=== PATIENT | female | born 1985 | race Caucasian/White ===

== ENCOUNTER 2020-02-03 13:39 | Emergency (ER) | payer BC, SELFPAY ==
--- NOTE | ~2020-02-03 | US_ITS ---
EXAMINATION: US pelvic complete w TV DATE: 02/03/2020 14:57 INDICATION: Abnormal uterine bleeding. TECHNIQUE: Multiple transabdominal and transvaginal sonographic images of the pelvis were obtained. COMPARISON: None. FINDINGS: TRANSABDOMINAL ULTRASOUND: The uterus measures 11.6 x 5.7 x 9.0 cm. There is a 14.5 x 11.9 x 16.9 cm cystic mass with thick sept ation superior to the uterus. There is no free fluid in the pelvis. TRANSVAGINAL ULTRASOUND: The endometrial complex measures 3.3 cm in thickness. The ovaries are not visualized. IMPRESSION: 1. 16.9 cm cystic mass with thick septation superior to the uterus suspicious for neoplasm. Pelvis MR I without and with contrast or CT abdomen and pelvis with contrast is recommended. 2. Thickened endometrial complex, consistent with endometrial hyperplasia versus polyp. Reviewed, dictated and finalized at location A. IMPRESSION: 1. 16.9 cm cystic mass with thick septation superior to the uterus suspicious f or neoplasm. Pelvis MRI without and with contrast or CT abdomen and pelvis with contrast is recommended. 2. Thickened endometrial complex, consistent with endometrial hyperplasia versu s polyp.
--- NOTE | ~2020-02-03 | CT_ITS ---
EXAMINATION: CT abdomen pelvis w con DATE: 02/03/2020 15:54 INDICATION: Pelvic mass TECHNIQUE: Computed tomography (CT) of the abdomen and pelvis was performed with 100 mL Omnipaque-350 intravenous contrast. Automated exposure control and iterative reconstruction technique were employe d. The dose-length product was 1411.12 mGy-cm. COMPARISON: None FINDINGS: Lung bases are clear. Heart size is normal. No pericardial or pleural effusion. Diffuse hepatic steat osis with peripheral geographic regions of focal fatty sparing. Gallbladder, spleen, pancreas, bilate ral adrenal glands and kidneys are normal. 15.5 x 11.2 x 15.3 cm cystic left ovarian mass with multip le thin internal septations consistent with neoplasm. No discrete nodular soft tissue component ident ified. Anteverted uterus with thickened endometrial complex with irregular margins. Bladder is normal . Bowels including the appendix are normal. No free intraperitoneal gas or fluid. No pathologically e nlarged abdominal or pelvic lymphadenopathy. Bones are unremarkable. IMPRESSION: 1. 15.5 cm complex cystic left ovarian mass with multiple thin interval stations but no discrete nodu lar soft tissue components consistent with ovarian neoplasm which could be either benign or less like ly malignant. Recommend gynecologic consultation. 2. Thickened endometrial complex with irregular margins. Consider hysteroscopy for further evaluation . 3. Diffuse hepatic steatosis. Reviewed, dictated and finalized at location A. IMPRESSION: 1. 15.5 cm complex cystic left ovarian mass with multiple thin interval station s but no discrete nodular soft tissue components consistent with ovarian neopla sm which could be either benign or less likely malignant. Recommend gynecologic consultation. 2. Thickened endometrial complex with irregular margins. Consider hysteroscopy for further evaluation. 3. Diffuse hepatic steatosis.
[2020-02-03 13:47] VITALS: BP 164/98; PULSE 79; RESP 14; TEMP 36.6; O2SAT 98
--- NOTE | 2020-02-03 14:09 | ED.GENADULT ---
HPI - General Adult General Chief complaint: Vaginal Bleeding Stated complaint: vaginal bleeding Time Seen by Provider: 02/03/20 13:43 Source: RN notes reviewed History of Present Illness HPI narrative: Patient presents emergency department from Dr. Baptiste's office for vaginal bleeding. Patient states that she is had a history of heavy vaginal bleeding for the past 1 year that is worse in the past 4 days. States that she has her past numerous large clots. Patient states she went to OB office today as recommended come to the ER for further evaluation. She does note lower abdominal cramping. Denies any chance of . Denies any fevers or chills chest pain shortness of breath or any other symptoms Related Data Allergies Allergy/AdvReac Type Severity Reaction Status Date / Time No Known Allergies Allergy Unverified 01/01/19 20:01 Review of Systems Review of Systems: Narrative: Gen.: Denies fevers or chills ENT: Denies congestion Respiratory: Denies shortness of breath or cough CV: Denies chest pain or palpitations GI: Denies abdominal pain nausea, emesis or diarrhea see HPI Musculoskeletal: Denies back pain or muscle pain Neuro: Denies numbness, tingling, weakness or focal weakness Skin: Denies rash Except as documented, all other systems reviewed and negative PMFSH Past Medical History Medical History (Updated 02/03/20 @ 17:15 by Minh Craft DO) Patient denies significant medical history Social History Social History (Updated 02/03/20 @ 14:11 by Minh Craft DO) Smoking status: Never smoker Gender identity (if verbalized by the patient): Female Exam Narrative: Exam Narrative: APPEARANCE: No acute distress, nontoxic, resting in bed EYES: EOMI HEENT: Normocephalic, atraumatic, OMM RESPIRATORY: No respiratory distress Clear to auscultation bilaterally with no rhonchi wheezing or rales. CARDIOVASCULAR: Regular rate and rhythm without murmurs rubs or gallops. ABDOMINAL: Soft, nondistended, mild tenderness left lower quadrant and right lower quadrant, no tenderness right upper quadrant left upper quadrant, no rebound or guard MUSCULOSKELETAl: Moves all extremities. No clubbing, cyanosis or edema. NEURO: Awake and alert. Following commands, speech normal, no focal deficits SKIN:: Warm, dry. No rashes lesions or abrasions PSYCHIATRIC: Normal affect/mood, Course Course Emergency Course: Called and discussed with Dr. Baptiste presentation work-up. Discussed CT and ultrasound results. At this time he recommends discharge the patient but request the patient have a Ellis ovarian risk assessment blood test as well as a CEA and Ca1 25 test follow-up as an outpatient Discussed with patient results of workup and diagnosis. Discussed need for follow-up with primary care, proper use of medication, and reasons to return to the emergency department. Patient understands and agrees to current treatment plan. I discussed with the patient the results of the ultrasound and CT discussed concern of ovarian mass with possible malignancy and my conversation with Dr. Baptiste with blood test ordered need to follow-up as outpatient Vital Signs Vital signs: Vital Signs Temperature 97.8 F 02/03/20 13:47 Pulse Rate 79 02/03/20 13:47 Respiratory Rate 14 02/03/20 13:47 Blood Pressure 164/98 H 02/03/20 13:47 Pulse Oximetry 98 02/03/20 13:47 Temperature 97.8 F 02/03/20 13:47 Pulse Rate 83 02/03/20 17:11 Respiratory Rate 16 02/03/20 15:49 Blood Pressure 137/98 H 02/03/20 17:11 Pulse Oximetry 98 02/03/20 15:49 Medical Decision Making Vital Signs Vital Signs: Vital Signs Temperature 97.8 F 02/03/20 13:47 Pulse Rate 79 02/03/20 13:47 Respiratory Rate 14 02/03/20 13:47 Blood Pressure 164/98 H 02/03/20 13:47 Pulse Oximetry 98 02/03/20 13:47 Temperature 97.8 F 02/03/20 13:47 Pulse Rate 83 02/03/20 17:11 Respiratory Rate 16 02/03/20 15:49 Blood Press
[2020-02-03] MEDS: SODIUM CHLORIDE 0.9% IV 1,000 ML 999 ML IV CONT (14:14)
[2020-02-03 14:18] LABS: Basophils Absolute Auto 0.1 K/mm3 (0.0-0.1); Basophils Percent Auto 0.5 % (0.2-1.2); Eosinophils Absolute Auto 0.3 K/mm3 (0-0.3); Eosinophils Percent Auto 2.3 % (0-4.4); Hematocrit 37.2 % (37.0-47.0); Hemoglobin 12.8 g/dL (12.0-15.0); Immature Granulocyte Absolute 0.05 K/mm3 (0.00-0.031); Immature Granulocyte Percent A 0.5 % (0-0.5); Lymphocytes Absolute Auto 2.83 K/mm3 (0.9-3.2); Lymphocytes Percent Auto 26.2 % (18.3-44.2); Mean Corpuscular HGB Conc 34.4 g/dl (32-36); Mean Corpuscular Hemoglobin 31.2 pg (26-34); Mean Corpuscular Volume 90.7 fl (80-100); Mean Platelet Volume 10.7 fl (7.4-10.4); Monocytes Absolute Auto 0.7 K/mm3 (0.1-0.6); Monocytes Percent Auto 6.4 % (2.6-8.5); Neutrophils Absolute Auto 6.9 K/mm3 (1.3-6.7); Neutrophils Percent Auto 64.1 % (45.5-73.1); Platelet Count Result 263 k/mm3 (150-375); Red Cell Distribution Width 13.2 % (11.5-14.5); White Blood Count 10.8 K/mm3 (4.5-10.0)
[2020-02-03 14:30] LABS: Alanine Aminotransferase 41 U/L (4-35); Albumin Level 4.3 g/dL (3.5-5.1); Alkaline Phosphatase 72 U/L (38-126); Aspartate Amino Transferase 27 U/L (14-36); Bilirubin,Total 0.2 mg/dL (0.2-1.3); Blood Urea Nitrogen 9 mg/dL (7-17); Calcium 8.8 mg/dL (8.4-10.2); Carbon Dioxide 23 mmol/L (22-30); Chloride 105 mmol/L (98-107); Estimated CRCL calculation 127 ml/min; Estimated Glomerular Filt Rate > 60; Glucose 151 mg/dL (65-105); Potassium 3.7 mmol/L (3.4-5.0); Prothrombin Time 12.9 Seconds (11.1-14.7); Sodium 139 mmol/L (137-145)
[2020-02-03 15:49] VITALS: BP 142/76; PULSE 82; RESP 16; O2SAT 98
[2020-02-03 17:10] VITALS: BP 121/74; PULSE 67
[2020-02-03 17:11] VITALS: BP 131/83; BP 137/98; PULSE 75; PULSE 83
[2020-02-03 17:14] VITALS: BP 137/94; PULSE 94; RESP 18; O2SAT 98
[2020-02-03 17:43] LABS: Carcinoembryonic Antigen 2.1 ng/mL (0.0-3.0)
[2020-02-06 05:01] LABS: CA-125 148 U/mL (<35)
== END 2020-02-03 17:15 | disposition home or self-care (01) ==
PROVIDERS: Emergency Provider Emergency Medicine; PCP Internal Medicine Infectious Disease
DX: N93.8 Other specified abnormal uterine and vaginal bleeding (principal); N83.202 Unspecified ovarian cyst, left side; K76.0 Fatty (change of) liver, not elsewhere classified; R93.89 Abnormal findings on diagnostic imaging of other specified body structures
CPT/HCPCS: 36415; 74177; 76830; 76856; 80053; 81025; 81500; 82378; 85025; 85610; 85730; 86304; 86850; 86900; 86901; 99284; J7030; Q9967

== ENCOUNTER 2024-09-14 19:46 | Emergency (ER) | payer BC, SELFPAY ==
--- NOTE | ~2024-09-14 | XR_ITS ---
EXAMINATION: XR chest 1V portable DATE: 09/14/2024 23:25 INDICATION: Influenza. TECHNIQUE: A single frontal view of the chest was obtained. COMPARISON: CT abdomen and pelvis 02/03/2020 FINDINGS: There is no pneumonia, pleural effusion, or pneumothorax. The heart size is normal. IMPRESSION: 1. No acute cardiopulmonary disease. Reviewed, dictated and finalized at location A. RENTAL DELIVERER
--- NOTE | 2024-09-14 19:47 | ECG_ITS ---
Test Date: 2024-09-14 20:02:14 Measurements Intervals Marlin Rate: 88 P: 48 PA: 187 QRS: 53 QRSD: 87 T: 9 QT: 321 QTc: 390 Interpretive Statements SINUS RHYTHM NONSPECIFIC T-WAVE ABNORMALITY No previous ECG available for comparison Electronically Signed On 09-15-2024 15:53:37 GANG PUSHER by Donald Valverde M.D.
--- OUTSIDE RECORDS SUMMARY | 2024-09-14 19:49 | XMS_ITS | Clinical Summary ---
Author Organization [facility] Address [address] [place] [address] Care Team Providers Care Clerk Of Scales Name Role Phone No, Physician Primary Care Provider [phone] Wyatt Baptiste MD Unavailable [phone] Allergies Active Allergy Reactions Criticality Noted Date Comments Adhesive Rash Medium 03/07/2020 Medications polyethylene glycol (MIRALAX) 17 gram packetIndicatio ns:constipation Take 1 packet (17 g total) by mouth daily as needed for constipation 30 packet 1 0 Active ondansetron (ZOFRAN) 4 mg tablet Take 1 tablet (4 mg total) by mouth every 8 (eight) hours as needed for nausea or vomiting 15 tablet 0 Active acetaminophen 500 mg capsuleIndicati ons:Pain Take 2 capsules (1,000 mg total) by mouth every 6 (six) hours as needed for pain 30 tablet 0 Active gabapentin (NEURONTIN) 300 mg capsuleIndicati ons:Pain Take 1 capsule (300 mg total) by mouth 2 (two) times a day 60 capsule 11 0 Active glyBURIDE (DIABETA) 1.25 mg tablet Take 1 tablet (1.25 mg total) by mouth daily with breakfast 30 tablet 11 0 Active apixaban (ELIQUIS) 2.5 mg tabletIndicatio ns:VTE Prophylaxis Take 1 tablet (2.5 mg total) by mouth 2 (two) times a day for 55 doses 55 tablet 0 Active Active Problems Problem Noted Date Diagnosed Date Anemia 03/24/2020 Migraines 03/24/2020 Recurrent urinary tract infection 03/24/2020 Secondary female infertility 03/24/2020 Steatosis of liver 03/24/2020 Tobacco user 03/24/2020 Vitamin D deficiency 03/24/2020 History of total hysterectom y with bilateral salpingo-oophorectomy (BSO) 03/09/2020 Adnexal mass 03/06/2020 Pelvic mass in female 02/16/2020 Overview (02/16/2020): Added automatically from request for surgery [id number] Delivery by section 03/18/2019 Ovarian cyst affecting pregn lukas in third trimester, antepartum 03/10/2019 Overview (03/24/2020): Last Assessment & Plan: Plan: If left ovarian cyst removed at the time of delivery, would recommend exercising caution to avoid adnexal bleeding and sending specimen to pathology for evaluation. Pelvic pain precautions again instructed on. Nausea and vomiting of , antepartum 05/2019 Overview (03/24/2020): Last Assessment & Plan: Fairly controlled with Zofran twice daily. New complaints of Reflux that Tums is not controlling, Zantac 150mg BID sent to pharmacy for relief. Elevated LFTs 02/10/2019 Overview (03/24/2020): Per record, sent with orders for repeat CMP 02/10 Laboratory summary 02/16/2019) ALT 36 ( 6-29) /AST 25/ T bili 0.4 Last Assessment & Plan: mildly elevated ALT levels Hyperlipidemia 02/10/2019 Overview (03/24/2020): Chart review shows history of; patient uncertain regarding diagnosis. 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 Mild to moderate hyperhomocystinemia has been identified as a risk factor for coronary artery disease and venous thromboembolism. Recent studies do not support the previously described association of increased risk of coronary artery disease and venous thromboembolism with mild hyperhomocystinemia caused by reduced MTHFR activity. The utility of MTHFR variant testing is not certain it is not recommended by either the [employer] ([employer]) or the [employer] ([employer]) in the evaluation of venous thromboembolism or adverse outcomes. Modest positive association has been found between the thermal labile variant (C677T) of the MTHFR gene and many other medical complications such as recurrent loss, risk of offspring with neural tube defects, neuropsychiatric disease and chemotherapy toxicity. If there is a personal family history of thromboembolism, consider testing plasma homocysteine, Factor 5 Leiden and prothrombin gene mutation. PCOS (polycystic ovarian syndrome) 02/09/2019 Overview (03/24/2020): Does not tolerate metformin Last Assessment & Plan: Reports history of menorrhagia and hyperplasia in the past requiring hysteroscopy, dilation and curettage, she states she did NOT get a uterine ablation. Reports taking statin in the past for her menorrhagia, and trial of Metformin but did not tolerate GI side effects. Uncertain if hemoglobin A1C has been assessed previously; not in records. States she saw SHAVONNE for ; then could not continue to afford to see, and was spontaneous. Gestational diabetes mellitus (GDM) 02/09/2019 Overview (03/24/2020): GCT not available GTT results from 01/29/2019: 116,246,205,211 hemoglobin A1c 6.1 (02/16/2019) Last Assessment & Plan: Non-compliant with eating regularly, including snacks; ketonuria present today along with 3lb weight loss Denies hypoglycemia Fasting hyperglycemia continues LGA growth pattern noted on last ultrasound Plan: Maternal- Medicine comanage gestational diabetes Reviewed at length with Dmitri that she needs to eat regularly, including snacks, and starvation is not our recommendation Reviewed that the fetus needs glucose for ongoing brain growth/development Goals given for Dmitri to find a meal replacement shake with at least 30 grams of carb, when she does not feel like eating Must eat at least 30 grams of carb with a meal in order to give meal time insulin Goal given for her to start eating snacks, ideas reviewed Increase bedtime Levemir to 34 units, continue 22 units in the morning Change meal time insulin to 12 units with breakfast, 12 units with lunch, 12 units with dinner Do not give meal time insulin if you do no plan to eat Perform blood glucose measurements 7??times daily, and send blood glucose logs and food diary weekly for review to diabetic team Twice daily kick counts Continue aspirin for preeclampsia risk reduction Twice weekly nonstress tests starting at 34 weeks, scheduling today for next week Serial growth every 4 weeks with last assessment at 38 weeks for mode of delivery, scheduled again 04/06 Delivery initiation between 39-40 weeks , recommended Diabetes testing 4-5 weeks after delivery with review at 6 week visit ?? Late care affecting 9 Supervision of high-risk of sis calvillo igravida 02/09/2019 Overview (03/24/2020): Approximate LMP 06/06/2018--ALEJA 03/13/2019; not consistent with 21w5d U/S giving ALEJA of 05/10/19 O+/NI/-/-/HIV neg / GC/CT neg/neg UDS neg 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 Candidiasis of vagina 10/08/2018 Tobacco dependence syndrome 09/18/2017 Obesity 08/28/2017 Overview (03/24/2020): TSH 1.55 /free T4 1.1 (02/16/19) Last Assessment & Plan: Would benefit from and weight reduction Immunizations Name Administration Dates Next Due Influenza, Quadrivalent, Spl it, Preservative Free, Intramuscular 07/01/2014 MMR 05/01/2019 Pneumococcal Polysaccharide PPV23 07/01/2014 Tdap 03/04/2019,07/17/2015 Surgical History Surgery Date Site/Laterality Comments SECTION PYLOROPLASTY Medical History Medical History Date Comments PCOS (polycystic ovarian syndrome) Pyloric stenosis Social History Tobacco Use Types Packs/Day Years Used Date Smoking Tobacco: Every Day Cigarettes Smokeless Tobacco: Never Alcohol Use Standard Drinks/Week Comments Not Currently 0 (1 standard drink = 0.6 oz pur e alcohol) Comments No Sex and Gender Information Value Date Recorded Sex Assigned at Not on file Legal Sex Female 2:36 AM CDT Gender Identity Not on file Sexual Orientation Not on file Obstetrics History Para Term AB IAB SAB Ectopic Multiple Livin g Live Births 3 3 3 2 3 Date Outcome GA Total Labor Labor/2nd/3rd Weight Sex Type Anes PTL Rehana A1 A5 Name Clin Term Term Term Last Filed Vital Signs Vital Sign Reading Time Taken Comments Blood Pressure 108/72 03/24/2020 9:37 AM CDT Pulse 90 03/24/2020 9:37 AM CDT Temperature 36.2 ??C (97.2 ??F) 03/24/2020 9:37 AM CD T Respiratory Rate 14 03/24/2020 9:37 AM CDT Oxygen Saturation 97% 03/24/2020 9:37 AM CDT Inhaled Oxygen Concentration - - Weight 115 kg (253 lb 8 oz) 03/24/2020 9:37 AM C DT Height 152.4 cm (5') 03/24/2020 9:37 AM CDT Body Mass Index 49.51 03/24/2020 9:37 AM CDT Plan of Treatment Not on file Insurance [employer] [place] Member Subscriber Plan / Payer (Ef fective 2020-Present) Name:Dmitri Fox Relation to Subscriber:Not on file Subscriber ID:Not on file Payer ID:[id number] (NAIC) Group ID:[id number] Type: OTHER Address: [facility] [id number] [place] [address] [employer] Advance Directives For more information, please contact: [phone] * Full Code (Latest Code Status on File) Date Activated Date Inactivated Comments 03/06/2020 8:54 PM 03/08/2020 8:54 PM * Full Code Date Activated Date Inactivated Comments 02/20/2020 4:12 PM 02/21/2020 5:41 PM * Full Code Date Activated Date Inactivated Comments 02/07/2020 11:02 AM 02/08/2020 10:44 PM * Full Code Date Activated Date Inactivated Comments 02/06/2020 6:12 AM 02/06/2020 8:03 PM Care Teams Clerk Of Scales Relationship Specialty Start Date End Date No, Physician PCP - General 02/05/20 Wyatt Baptiste MD Referring Physician Obstetrics and Gynecology 02/07/20
--- OUTSIDE RECORDS SUMMARY | 2024-09-14 19:49 | XMS_ITS | Clinical Summary ---
Author Organization [facility] [employer] Address [address] [place] [address] Care Team Providers Care Combustion Analyst Name Role Phone Wyatt Baptiste MD Primary Care Provider [phone] Source Comments [facility] [employer],non-owned Affiliates and Associated Physician Practices is amultiple site organization consisting of ambulatory clinics and hospital sitesin [place], [place], [place] and [place]. This disclosure is being madepursuant to the Care Everywhere program and may not contain all information available regarding this patient. Last updated 18.[facility] [employer] Allergies No known active allergies Medications * Be aware that medications may not be up to date on this document. Alwaysverify current medications with the patient. Medication Sig Dispensed Refills Start Date End Date Status Vit-Fe Fumarate-FA ( PO) Active raNITIdine (ZANTAC) 150 MG tablet Take 150 mg by mouth 2 times daily Active iron polysaccharides (NIFEREX 150) 150 MG capsule Take 1 capsule by mouth 2 times daily 60 capsule 3 04/30/2019 Active oxyCODONE-acetaminophen (PERCOCET) 5-325 MG tablet Take 1 tablet by mouth every 6 hours as needed for Pain 20 tablet 04/30/2019 Active ibuprofen (MOTRIN) 600 MG tablet Take 1 tablet by mouth every 6 hours as needed for Pain 40 tablet 1 04/30/2019 Active docusate sodium (COLACE) 100 MG capsule Take 1 capsule by mouth 2 times daily 60 capsule 1 04/30/2019 Active Active Problems Problem Noted Date Diagnosed Date Ovarian cyst affecting pregn lukas in third trimester, antepartum 03/10/2019 Assessment & Plan (03/24/2019 11:58 AM CDT): Plan: If left ovarian cyst removed at the time of delivery, would recommend exercising caution to avoid adnexal bleeding and sending specimen to pathology for evaluation. Pelvic pain precautions again instructed on. Assessment & Plan (03/10/2019 5:04 PM CDT): Please see formal ultrasound report for description of ovarian cyst. Pelvic pain precautions instructed on today and to present to hospital with any concerns. PTL warnings reviewed. Consider removal during section. Nausea and vomiting of , antepartum 05/2019 Assessment & Plan (03/03/2019 2:52 PM CDT): Fairly controlled with Zofran twice daily. New complaints of Reflux that Tums is not controlling, Zantac 150mg BID sent to pharmacy for relief. Assessment & Plan (02/24/2019 10:54 AM CDT): Encouraged to take Zofran twice daily (a.m. and p.m. dosing) for decreased nausea and improvement with meal choices and regular eating Hyperlipidemia 02/10/2019 Overview (02/24/2019): Chart review shows history of; patient uncertain regarding diagnosis. Laboratory summary: 02/16/2019 (3rd trimester) HDL 36 mg/dL( 48-87) total cholesterol 229 mg/dL ( 219-349) triglycerides 166 mg/dL ( 131-453) LDL 162 mg/dL ( 101-224) Assessment & Plan (02/24/2019 10:51 AM CDT): Mildly reduced HDL levels for the 3rd trimester Assessment & Plan (02/17/2019 9:17 AM CDT): Lipid panel is still pending Assessment & Plan (02/10/2019 4:54 PM CDT): Chart review shows history of; patient uncertain regarding diagnosis. 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 History of Elevated LFTs 02/10/2019 Overview (02/24/2019): Per record, sent with orders for repeat [facility] 02/10 Laboratory summary 02/16/2019) ALT 36 ( 6-29) /AST 25/ T bili 0.4 Assessment & Plan (02/24/2019 10:52 AM CDT): mildly elevated ALT levels Assessment & Plan (02/17/2019 9:17 AM CDT): CMP is currently pending Gestational diabetes mellitus (GDM) 02/09/2019 Overview (02/24/2019): GCT not available GTT results from 01/29/2019: 116,246,205,211 hemoglobin A1c 6.1 (02/16/2019) Assessment & Plan (03/24/2019 12:07 PM CDT): Non-compliant with eating regularly, including snacks; ketonuria present today along with 3lb weight loss Denies hypoglycemia Fasting hyperglycemia continues LGA growth pattern noted on last ultrasound Plan: Maternal- Medicine comanage gestational diabetes Reviewed at length with Radha that she needs to eat regularly, including snacks, and starvation is not our recommendation Reviewed that the fetus needs glucose for ongoing brain growth/development Goals given for Radha to find a meal replacement shake with [...] with review at 6 week visit ?? Assessment & Plan (03/10/2019 5:33 PM CDT): Maternal- Medicine comanage in gestational diabetes Hyperglycemia noted today, diabetes not in adequate control, evidenced by accelerated growth also Reviewed at length with Radha and significant other at bedside risks for ongoing hyperglycemia, as well as /childhood risks Increase bedtime Levemir to 26 units, continue 22 units in the morning Increase meal time insulin by 12 units with breakfast, 10 units with lunch, 12 units with dinner Do not give meal time insulin if you do no plan to eat Encouraged to add physical activity Perform blood glucose measurements 7??times daily -that send blood glucose logs and food diary weekly for review to diabetic team Twice daily kick counts Continue aspirin for preeclampsia risk reduction Twice weekly nonstress tests starting at 34 weeks Serial growth every 4 weeks with last assessment at 38 weeks for mode of delivery Delivery initiation between 39-40 weeks , recommended Diabetes testing 4-5 weeks after delivery with review at 6 week visit Assessment & Plan (03/03/2019 2:49 PM CDT): Adequate logs today, with some missed checks. Suboptimal glucose control. Last estimated weight overall appropriate. ?? Plan: Maternal- Medicine comanage in gestational diabetes Increase Levemir to Add meal time insulin of 8 units of Humalog with breakfast, lunch, dinner Do not give meal time insulin if you do no plan to administer Perform blood glucose measurements 7 times daily -that send blood glucose logs and food diary weekly for review to diabetic team Twice daily kick counts Continue aspirin for preeclampsia risk reduction Twice weekly nonstress tests starting at 34 weeks Serial growth every 4 weeks with last assessment at 38 weeks for mode of delivery--reassess growth in 1 week Delivery initiation between 39-40 weeks Diabetes testing 4-5 weeks after delivery with review at 6 week visit Assessment & Plan (02/24/2019 10:57 AM CDT): Insufficient information brought today. Suboptimal glucose control. Last estimated weight overall appropriate. Maternal- Medicine recommendations: Maternal- Medicine comanage in gestational diabetes Increase Levemir to /16 Perform blood glucose measurements 7 times daily -that send blood glucose logs and food diary weekly for review to diabetic team Daily kick counts Continue aspirin for preeclampsia risk reduction Twice weekly nonstress tests starting at 34 weeks Serial growth every 4 weeks with last assessment at 38 weeks for mode of delivery--reassess growth in 1-2 weeks Delivery initiation between 39-40 weeks Diabetes testing 4-5 weeks after delivery with review at 6 week visit Assessment & Plan (02/17/2019 8:38 PM CDT): Perform 4 times daily blood glucose measurements; goal of fasting <90, 1 hour post prandial <130 Start insulin Levemir 10 units in the morning and at bedtime; Increase bedtime Levemir dose by 2 units every 2 days for consistent fasting glucoses>90 Refuses Metformin d/t GI side effects experienced previously Close contact with our special educator to optimize glycemic control on at least once weekly basis Again, reviewed that total carbohydrate elimination is NOT recommended Report promptly any hypoglycemic episodes Keep snack and quick carb with you at all times Dilated retinal exam: indicated if Hemoglobin A1C shows elevation Labs: CMP, TSH, Hemoglobin A1C: results pending; collected yesterday 24 hour urine supplies given, do not collect until urine culture results from yesterday Comprehensive anatomy incomplete and AGA 02/10 , follow up anatomy and growth evaluation in 1-3 weeks Twice weekly NST beginning at 34 weeks until delivery Close surveillance for gestational hypertension and preeclampsia Typical delivery recommended at 39 weeks in uncomplicated diabetic ; further recommendations on timing of delivery will depend on glycemic control and surveillance. Continue Asprin 162 mg daily for preeclampsia risk reduction 2 hour GTT at 4 weeks PP to be discussed at 6 week PP visit Post weight reduction recommended Assessment & Plan (02/10/2019 6:36 PM CDT): GCT not available GTT results from 01/29/2019: 116, 246, 205, 211 Gestational Diabetes I counseled Radha Jacinto regarding the adverse outcomes associated with inadequately controlled diabetes in . These complications include overgrowth with the associated risk of labor and shoulder dystocia, delivery, preeclampsia, hypoglycemia, stillbirth, and her child's risk of metabolic disease in later life secondary to programming of adult disease. Adequate treatment of the disease will minimize these risks. We discussed the dramatic increase in insulin resistance that occurs in the second half of and I outlined a plan for ongoing management. We reviewed the target glucose ranges to minimize excessive growth and optimize outcomes. These are: Fasting 60-90 mg/dl; preprandial 60-105 mg/dl; and 1-hour postprandial < 130 mg/dl. A) Antepartum testing. Recommend daily kick counts Twice weekly NST beginning between 32-36 weeks until delivery; initiation will be based on if medication is required for treatment Serial Ultrasound assessment of growth every 3-4 weeks is recommended, with a reassessment between 37-38 weeks for mode of delivery planning. B.) Timing of Delivery. If spontaneous delivery has not occurred by 39 weeks gestation, delivery may be planned between 39-40 weeks. If complications, such as preeclampsia, macrosomia or poor glucose control develop, then delivery plans may need to be revised. C) Route of delivery. Vaginal delivery may be anticipated unless the fetus is excessively large or there is an abnormal presentation. Diabetes is associated with about a six-fold risk for shoulder dystocia. Operative vaginal deliveries should be approached with caution. We also discussed the limitations of ultrasound for estimating weight at term, with estimated weights deviating by up to 1 lb in either direction from birthweights. I advised Radha that the [employer] recommends delivery for fetuses with estimated weight of 4500 grams or greater in diabetic mothers. D) Glucose control in labor. During labor, capillary glucose values should be checked every 1-2 hours (depending on their stability). Maintenance fluids with 5% dextrose are infused to prevent starvation ketosis. If the glucose values exceed 110 mg/dl, an insulin infusion is recommended. E) Long-term diabetes surveillance. The risk of Radha Jacinto developing diabetes outside of over the next five years may be as high as 50%. I recommend that she have a fasting plasma glucose or 2hr GTT at 4 weeks and discussion of the results at her 6 week visit. If her testing is normal, annual glucose screening by her primary care physician is advised. Plan: Perform 4 times daily blood glucose measurements; goal of fasting <90, 1 hour post prandial <130 Close contact with our special educator to optimize glycemic control on at least once weekly basis Reviewed that total carbohydrate elimination is NOT recommended; reviewed carb counting with meals No medications given today; educated per DM nurse on assessment of glucoses Dilated retinal exam: indicated if Hemoglobin A1C shows elevation Labs: CMP, TSH, Hemoglobin A1C; 24 hour urine not given due to urine suspicious for UTI currently Comprehensive scan completed today, anatomy incomplete, followed by serial ultrasounds for growth every 4 weeks. Twice weekly NST beginning between 32-36 weeks until delivery, initiation of testing will depend on if insulin is required Close surveillance for gestational hypertension and preeclampsia Typical delivery recommended at 39 weeks in uncomplicated diabetic ; further recommendations on timing of delivery will depend on glycemic control and surveillance. Continue Asprin 162 mg daily for preeclampsia risk reduction 2 hour GTT at 4 weeks PP to be discussed at 6 week PP visit Post weight reduction recommended Supervision of high-risk of sis calvillo igravida 02/09/2019 Overview (02/10/2019): Approximate LMP 06/06/2018--ALEJA 03/13/2019; not consistent with 21w5d U/S giving ALEJA of 05/10/19 O+/NI/-/-/HIV neg /328 GC/CT neg/neg UDS neg PCOS (polycystic ovarian syndrome) 02/09/2019 Overview (02/24/2019): Does not tolerate metformin Assessment & Plan (02/10/2019 5:26 PM CDT): Reports history of menorrhagia and hyperplasia in [...] to afford to see, and was spontaneous. Maternal morbid obesity, antepartum 02/09/2019 Overview (02/24/2019): TSH 1.55 /free T4 1.1 (02/16/19) Assessment & Plan (02/24/2019 10:52 AM CDT): Would benefit from and weight reduction Assessment & Plan (02/10/2019 5:06 PM CDT): Obese women have higher rates of spontaneous miscarriage. Morbid obesity is associated with a host of complications. She is at increased risk for preeclampsia and gestational hypertension, delivery, macrosomia, gestational diabetes, deep venous thrombosis, delivery, stillbirth and certain defects, such as open neural tube defects. deliveries for women of her size are associated with an increased risk of complications, such as anesthetic complications, wound complications, and infections, which were discussed. During , limited weight gain is recommended. I indicated Weight maintenance (a loss or gain of 10 pounds) is the current recommendation, and that active weight loss is discouraged. ?? We discussed the metabolic syndrome, in particular the common comorbidity of obesity, diabetes and hypertension. I emphasized the importance and benefits of good nutrition in managing as well as avoiding these disorders. I encouraged in particular a goal of 3 daily servings of green vegetables to help with proper glucose metabolism, blood pressure regulation, water weight management, weight gain, regular bowel movements among other benefits. Late care affecting 9 Migraines Resolved Problems Problem Noted Date Diagnosed Date Resolved Date Abdominal pain 04/27/2019 05/01/2019 PCO (polycystic ovaries) 10/2018 Gestational diabetes 019 Urinary tract infection 02/15 Assessment & Plan (02/17/2019 10:33 AM CDT): Patient went to lab yesterday, UA pending, urine negative for blood today, patient asymptomatic, aware of pyelo precautions. Assessment & Plan (02/10/2019 5:07 PM CDT): Reports treatment of UTI once this Reports some mild flank discomfort today and blood present in urine without vaginal bleeding UA and urine culture order given to patient Encouraged patient to follow up with results with our office on Friday Pyelo and renal stone precautions given Immunizations Name Administration Dates Next Due MMR 05/01/2019,05/01/2019(Deferred: - duplicate order) Family History * Patient is adopted Medical History Relation Name Comments Diabetes - Type 2 Maternal Grandfather Diabetes - Type 2 Maternal Grandmother Hyperlipidemia Mother Hypertension Mother Osteoporosis Mother CAD (Coronary Artery Disease) Paternal Grandfather Hypertension Paternal Grandmother Cancer - Colon Paternal Uncle Relation Name Status Comments Father adopted with no history Maternal Grandfather Maternal Grandmother Mother Paternal Grandfather Paternal Grandmother Paternal Uncle Social History Tobacco Use Types Packs/Day Years Used Date Smoking Tobacco: Former Cigarettes Smokeless Tobacco: Never Tobacco Cessation:Counseling Given: Yes Alcohol Use Standard Drinks/Week Comments Not Currently 0 (1 standard drink = 0.6 oz pur e alcohol) Not during Sex and Gender Information Value Date Recorded Sex Assigned at Not on file Gender Identity Not on file Sexual Orientation Not on file Last Filed Vital Signs Vital Sign Reading Time Taken Comments Blood Pressure 130/82 05/01/2019 12:20 PM CDT Pulse 80 05/01/2019 12:20 PM CDT Temperature 36.6 ??C (97.8 ??F) 05/01/2019 12:20 PM C DT Respiratory Rate 18 05/01/2019 12:20 PM CDT Oxygen Saturation 98% 05/01/2019 12:20 PM CDT Inhaled Oxygen Concentration - - Weight 111.1 kg (245 lb) 04/27/2019 7:42 PM CDT Height 152.4 cm (5') 04/27/2019 7:42 PM CDT Body Mass Index 47.85 04/27/2019 7:42 PM CDT Plan of Treatment Health Maintenance Due Date Last Done Comments HIV SCREENING 2001 HEPATITIS C SCREENING 06/18/2004 DTAP/TDAP/TD VACCINES (1 - Tdap) 2005 HEPATITIS B VACCINE (1 of 3 - 19+ 3-dose series) 2005 PAP SMEAR 10/05/2021 10/05/2018 (Done Outside Per Report) COVID-19 VACCINE (1 - 2023-2 5 season) 2024 INFLUENZA VACCINE (#1) 2024 DEPRESSION SCREENING 08/18/2024 ZOSTER VACCINE (1 of 2) 2036 HIB VACCINE Aged Out No longer eligi ble based on patient's age to complete this topic HPV VACCINE Aged Out No longer eligi ble based on patient's age to complete this topic MENINGOCOCCAL (Group B) VACCINE Aged Out No longer eligible based on patient's age to complete this topic MENINGOCOCCAL VACCINE Aged Out No gisela lydia eligible based on patient's age to complete this topic PNEUMOCOCCAL VACCINE Aged Out No long er eligible based on patient's age to complete this topic Advance Directives * Full Code (Latest Code Status on File) Date Activated Date Inactivated Comments 04/28/2019 12:45 AM 05/01/2019 4:52 PM Care Teams Combustion Analyst Relationship Specialty [place] [address] [place] [id number] PCP - General 04/20/19
--- OUTSIDE RECORDS SUMMARY | 2024-09-14 19:49 | XMS_ITS | Referral Summary ---
Author Organization [facility] Address [address] [place] [address] Care Team Providers Care Plant Electrical Engineer Name Role Phone No, Physician Primary Care Provider [phone] Wyatt Baptiste MD Unavailable [phone] Allergies Active Allergy Reactions Criticality Noted Date [...] (02/16/2020): Added automatically from request for surgery [id number] Delivery by section 03/18/2019 Ovarian cyst affecting [...] it is not recommended by either the [employer] (ACMG) or the [employer]nec[employer] (ACOG) in [...] 05/01/2019 Pneumococcal Polysaccharide PPV23 07/01/2014 Tdap 03/04/2019,07/17/2015 Social History Tobacco Use Types Packs/Day Years [...] Plan of Treatment Not on file Insurance [employer] [place] Subscriber Plan / Payer (Ef fective 2020-Present) Name:Dmitri Fox Relation to Subscriber:Not on file Subscriber ID:Not on file Payer ID:[id number] (NAIC) Group ID:[id number] Type: OTHER Address: [address] [place] [address] [employer] Advance Directives For more information, please contact: [phone] * Full Code (Latest Code Status on File) Date Activated Date Inactivated Comments 03/06/2020 8:54 PM 03/08/2020 8:54 PM * Full Code Date Activated Date Inactivated Comments 02/20/2020 4:12 PM 02/21/2020 5:41 PM * Full Code Date Activated Date Inactivated Comments 02/07/2020 11:02 AM 02/08/2020 10:44 PM * Full Code Date Activated Date Inactivated Comments 02/06/2020 6:12 AM 02/06/2020 8:03 PM Care Teams Plant Electrical Engineer Relationship Specialty Start Date End Date No, Physician PCP - General 02/05/20 Wyatt Baptiste MD Referring Physician Obstetrics and Gynecology 02/07/20
--- OUTSIDE RECORDS SUMMARY | 2024-09-14 19:49 | XMS_ITS | Data Portability ---
Author Organization [facility] Address [address] [place] [address] Assessment No assessment recorded. Plan of Treatment Reminders Order Date Submit Date Provider Last Modified By Organization Details Last Modified Time Details Appointments None recorded . Lab urinalys is, dipstick 2018 019 penelope In-Office Order, Internal Use Only DO Not Attach Compendium DO Not Attach Compendium, Do Not Delete/merge, [id number] 11:37:11 urinalys is, dipstick 2018 019 penelope In-Office Order, Internal Use Only DO Not Attach Compendium DO Not Attach Compendium, Do Not Delete/merge, [id number] 15:55:[address] referral - As discusse d with Dr. Scott 2019 020 emperatriz Scott, [address], [address], 0 15:50:49 Procedures None recorded . Surgeries section (SURG) 2018 019 [email or web address] [facility], [address] [place], [address], 9 16:25:14 Imaging None recorded . Medication Orders cyanocob alamin (vit B-12) 1,000 mcg/mL injectio n solution 2018 019 Not available 10/01/201 9 16:29:09 Caltrate Gummy Bites 250 mg-10 mcg (400 unit) chewable tablet 2018 019 [email or web address] [facility] #[id number], [address], [place], [address], 0 15:59:21 multivit obrien tablet 2018 019 INTERFACE [facility] #[id number], [address], [place], [address], 9 17:41:37 glyburid e 1.25 mg tablet 2019 020 INTERFACE [facility] #[id number], [address], [place], [address], 0 16:11:00 Slynd 4 mg (28) tablet 2019 020 INTERFACE [facility] #[id number], [address], [place], [address], 0 16:18:40 Patient TargetsNo targets recorded. Patient Instructions Encounter Date Encounter Id Patient Instructions Last Modified By Organization Details Last Modified Time 03/04/2019 [id number] polycystic ovary syndrome: care instructions [email or web address] Not available 03/04/2019 12:11:14 03/18/2019 [id number] When You Want to Lose Weight: Care Instructions [email or web address] Not available 03/18/2019 13:07:56 01/11/2020 [id number] When You Want to Lose Weight: Care Instructions mwasserman Not available 01/11/2020 16:18:39 heavy menstrual periods: care instructions mwasserman Not available 01/11/2020 16:18:39 02/07/2020 [id number] When You Want to Lose Weight: Care Instructions [email or web address] Not available 02/07/2020 15:24:45 heavy menstrual periods: care instructions mwasserman Not available 02/07/2020 14:59:18 Reason for Referral Gynecologic Oncologist Refer ral for Pelvic mass 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 Scott Referring Physician: Wyatt Baptiste, FURNACE LINER, Encounter Date: 02/07/2020 Results Created Date Observation Date Name Description Value Unit Range Abnormal Flag Note LastModifiedBy Organization Detail LastModifiedTime 03/18/20 19 03/18/2019 urina lysis , dipst ick Leukocytes Negati ve Not Available In-Office Order Internal Use Only DO Not Attach Compendium DO Not Attach Compendium, Do Not Delete/merge, [id number] 03/18/2019 12:37:25 03/18/2003/18/2019 urina lysis , dipst ick Nitrite negati ve Not Available In-Office Order Internal Use Only DO Not Attach Compendium DO Not Attach Compendium, Do Not Delete/merge, 03/18/2019 12:37:25 03/18/2003/18/2019 urina lysis , dipst ick Urobilinogen .2 Not Available In-Of fice Order Internal Use Only DO Not Attach Compendium DO Not Attach Compendium, Do Not Delete/merge, 03/18/2019 12:37:25 03/18/2003/18/2019 urina lysis , dipst ick Protein Negati ve Not Available In-Office Order Internal Use Only DO Not Attach Compendium DO Not Attach Compendium, Do Not Delete/merge, 03/18/2019 12:37:25 03/18/2003/18/2019 urina lysis , dipst ick pH 6.5 Not Available In-Office Order Internal Use Only DO Not Attach Compendium DO Not Attach Compendium, Do Not Delete/merge, 03/18/2019 12:37:25 03/18/2003/18/2019 urina lysis , dipst ick Blood Negati ve Not Available In-Office Order Internal Use Only DO Not Attach Compendium DO Not Attach Compendium, Do Not Delete/merge, 03/18/2019 12:37:25 03/18/2003/18/2019 urina lysis , dipst ick Specific [place] 1.025 Not Available In-Off ice Order Internal Use Only DO Not Attach Compendium DO Not Attach Compendium, Do Not Delete/merge, 03/18/2019 12:37:25 03/18/2003/18/2019 urina lysis , dipst ick Ketone Trace Not Available In-Office Order Internal Use Only DO Not Attach Compendium DO Not Attach Compendium, Do Not Delete/merge, [id number] 03/18/2019 12:37:25 03/18/20 19 03/18/2019 urina lysis , dipst ick Bilirubin Negati ve Not Available In-Office Order Internal Use Only DO Not Attach Compendium DO Not Attach Compendium, Do Not Delete/merge, [id number] 03/18/2019 12:37:25 03/18/20 19 03/18/2019 urina lysis , dipst ick Glucose Negati ve Not Available In-Office Order Internal Use Only DO Not Attach Compendium DO Not Attach Compendium, Do Not Delete/merge, 03/18/2019 12:37:25 03/04/20 19 03/04/2019 urina lysis , dipst ick Leukocytes Negati ve Not Available In-Office Order Internal Use Only DO Not Attach Compendium DO Not Attach Compendium, Do Not Delete/merge, 03/04/2019 11:19:47 03/04/20 19 03/04/2019 urina lysis , dipst ick Nitrite negati ve Not Available In-Office Order Internal Use Only DO Not Attach Compendium DO Not Attach Compendium, Do Not Delete/merge, [id number] 03/04/2019 11:19:47 03/04/20 19 03/04/2019 urina lysis , dipst ick Urobilinogen 1 Not Available In-Of fice Order Internal Use Only DO Not Attach Compendium DO Not Attach Compendium, Do Not Delete/merge, [id number] 03/04/2019 11:19:47 03/04/20 19 03/04/2019 urina lysis , dipst ick Protein Negati ve Not Available In-Office Order Internal Use Only DO Not Attach Compendium DO Not Attach Compendium, Do Not Delete/merge, 03/04/2019 11:19:47 03/04/20 19 03/04/2019 urina lysis , dipst ick pH 6.5 Not Available In-Office Order Internal Use Only DO Not Attach Compendium DO Not Attach Compendium, Do Not Delete/merge, 03/04/2019 11:19:47 03/04/20 19 03/04/2019 urina lysis , dipst ick Blood Negati ve Not Available In-Office Order Internal Use Only DO Not Attach Compendium DO Not Attach Compendium, Do Not Delete/merge, 03/04/2019 11:19:47 03/04/20 19 03/04/2019 urina lysis , dipst ick Specific [place] 1.030 Not Available In-Off ice Order Internal Use Only DO Not Attach Compendium DO Not Attach Compendium, Do Not Delete/merge, 03/04/2019 11:19:47 03/04/20 19 03/04/2019 urina lysis , dipst ick Ketone Trace Not Available In-Office Order Internal Use Only DO Not Attach Compendium DO Not Attach Compendium, Do Not Delete/merge, 03/04/2019 11:19:47 03/04/20 19 03/04/2019 urina lysis , dipst ick Bilirubin Small Not Available In-Offic e Order Internal Use Only DO Not Attach Compendium DO Not Attach Compendium, Do Not Delete/merge, 03/04/2019 11:19:47 03/04/2003/04/2019 urina lysis , dipst ick Glucose Negati ve Not Available In-Office Order Internal Use Only DO Not Attach Compendium DO Not Attach Compendium, Do Not Delete/merge, 03/04/2019 11:19:47 02/05/20 19 02/04/2019 urina lysis , dipst ick Leukocytes Trace Not Available In-Offi ce Order Internal Use Only DO Not Attach Compendium DO Not Attach Compendium, Do Not Delete/merge, 02/04/2019 10:43:11 02/05/20 19 02/04/2019 urina lysis , dipst ick Nitrite negati ve Not Available In-Office Order Internal Use Only DO Not Attach Compendium DO Not Attach Compendium, Do Not Delete/merge, 02/04/2019 10:43:11 02/05/20 19 02/04/2019 urina lysis , dipst ick Urobilinogen .2 Not Available In-Of fice Order Internal Use Only DO Not Attach Compendium DO Not Attach Compendium, Do Not Delete/merge, 02/04/2019 10:43:11 02/05/20 19 02/04/2019 urina lysis , dipst ick Protein Negati ve Not Available In-Office Order Internal Use Only DO Not Attach Compendium DO Not Attach Compendium, Do Not Delete/merge, 02/04/2019 10:43:11 02/05/20 19 02/04/2019 urina lysis , dipst ick pH 7.0 Not Available In-Office Order Internal Use Only DO Not Attach Compendium DO Not Attach Compendium, Do Not Delete/merge, 02/04/2019 10:43:11 02/05/2002/04/2019 urina lysis , dipst ick Blood Negati ve Not Available In-Office Order Internal Use Only DO Not Attach Compendium DO Not Attach Compendium, Do Not Delete/merge, 02/04/2019 10:43:11 02/05/2002/04/2019 urina lysis , dipst ick Specific [place] 1.015 Not Available In-Off ice Order Internal Use Only DO Not Attach Compendium DO Not Attach Compendium, Do Not Delete/merge, 02/04/2019 10:43:11 02/05/2002/04/2019 urina lysis , dipst ick Ketone Trace Not Available In-Office Order Internal Use Only DO Not Attach Compendium DO Not Attach Compendium, Do Not Delete/merge, 02/04/2019 10:43:11 02/05/2002/04/2019 urina lysis , dipst ick Bilirubin Small Not Available In-Offic e Order Internal Use Only DO Not Attach Compendium DO Not Attach Compendium, Do Not Delete/merge, 02/04/2019 10:43:11 02/05/2002/04/2019 urina lysis , dipst ick Glucose Negati ve Not Available In-Office Order Internal Use Only DO Not Attach Compendium DO Not Attach Compendium, Do Not Delete/merge, 02/04/2019 10:43:11 02/11/2002/10/2019 US, obste tric, 2nd trime ster No observ ation record ed. [facility] Wyatt Baptiste MD [address] [place], [address], 03/04/2019 11:44:23 02/11/20 19 02/10/2019 US, obste tric, bioph ysica l profi le + non-s tress test No observ ation record ed. [facility] Olivia [address] [place], [address], 03/04/2019 11:44:23 02/12/20 19 02/10/2019 US, obste tric, 2nd trime ster No observ ation record ed. [facility] ([facility]) [address] [place], [address], 03/04/2019 11:44:23 03/11/20 19 03/10/2019 US, obste tric, 3rd trime ster No observ ation record ed. [facility] [place] [address] [place], [address], 03/18/2019 23:31:37 03/11/20 19 03/10/2019 US, obste tric, 3rd trime ster No observ ation record ed. [email or web address] [facility] [address], [address], 03/25/2019 11:10:06 03/25/20 19 03/10/2019 US, obste tric, bioph ysica l profi le + non-s tress test No observ ation record ed. [facility] [address], [address], 05/18/2019 16:43:20 04/07/20 19 04/06/2019 US, obste tric, 3rd trime ster No observ ation record ed. [facility] [place] [address] [place] [address], [address], 05/18/2019 16:43:20 04/07/20 19 04/06/2019 US, obste tric, follo w-up No observ ation record ed. penelope [facility] [address] [place], [address], 05/18/2019 16:43:20 02/04/20 20 02/03/2020 CT, abdom en + pelvi s, w/ contr ast No observ ation record ed. [email or web address] Not Available 02/06 15:06:30 02/04/20 20 02/03/2020 US, pelvi s, trans abdom inal + trans vagin al No observ ation record ed. [email or web address] Not Available 02/06 15:06:30 Result Notes None recorded. Problems Name Problem SNOMED Code Status Onset Date Resolution Date Notes Provider Name and Address Organization Details Recorded Time Obesity 608780428 Active 2017 Laurita Willi null, [place] [facility] 0 16:33:54 Family planning surveilla nce Completed 201710/05/2018 Wyatt HurleyOliva [place] [facility] 9 17:39:32 Tobacco dependenc e syndrome 32519208 Active 2017 Margarette Lenz PA-C Attn: Accounting ,[address] [place], [address] , [place] [facility] 8 10:24:41 78389207 Completed 201810/05/2018 Wyatt Bapt[place] [facility] 9 17:39:55 Secondary female infertili ty 02985974 Completed [place] [facility] 0 16:33:54 Obesity 337389508 Completed 2017 Laur[place] [facility] 0 16:33:54 Polycysti c ovaries Completed [place] [facility] 0 16:33:54 Tobacco user 193393350 Completed [place] [facility] 0 16:33:54 Candidias is of vagina 82632235 Completed 2018 Laur[place] [facility] 0 16:33:54 Candidias is of vagina 19808819 Active 2018 Laur[place] [facility] 0 16:33:54 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 9102 Completed 2018 Laur[place] [facility] 0 16:33:54 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 35225956089 9102 Active 2018 Laur[place] [facility] 0 16:33:54 Deliverie s by Completed 2018 Laur[place] [facility] 0 16:33:54 Deliverie s by 403066935 Active 2018 [place] [facility] 0 16:33:54 Female steriliza tion Completed 2018 [place] [facility] 0 16:33:54 Female steriliza tion Completed 201803/18/2019 Wyatt [place] [facility] 9 13:13:35 Gestation al diabetes mellitus 06215328 Active [place] [facility] 0 16:33:54 Gestation al diabetes mellitus 30611732 Completed [place] [facility] 0 16:33:54 Polycysti c ovary syndrome 317078833 Active 2019 Wyatt [place] [facility] 0 16:15:22 History of total hysterect rachael 929009872 Completed 201903/09/2020 Wy[place] [facility] 0 15:01:41 History of total hysterect rachael with bilateral salpingo- oophorect rachael 378108088 Active 2019 Wy[place] [facility] 0 15:01:37 Recurrent urinary tract infection 134046807 Active Wy[place]ordan[place] [facility] 6 14:56:23 Menorrhag ia 787453361 Completed 10/05/2018 [place] [facility] 9 17:39:39 Dysmenorr hea 044023085 Completed 10/05/2018 [place] [facility] 9 17:39:45 Hyperchol esterolem ia 53593443 [place] Wy[place] [facility] 6 14:56:23 Hyperlipi demia 91899404 Active [place] [facility] 6 14:56:23 Hyperglyc emia 95241901 Completed 10/05/2018 [place] [facility] 9 17:39:27 Polycysti c ovaries Active Laur[place] [facility] 0 16:33:54 Tobacco user 042973654 Active [place] [facility] 0 16:33:54 Overweigh t 403146784 Completed 10/05/2018 Wy[place] [facility] 9 17:39:49 Secondary female infertili ty 70770696 Active [place] [facility] 0 16:33:54 Increased liver function 04660913 [place] [facility] 6 14:56:23 Impaired fasting glycemia 092428759 Completed 10/05/2018 Wy[place] [facility] 9 17:39:36 Anemia 744557095 [place] [facility] 6 14:56:23 Vitamin D deficienc y 42368174 Active [place] [facility] 6 14:56:23 Steatosis of liver 164818816 [place] [facility] 6 14:56:23 Problem Notes None recorded. Procedures Surgical History Date Name Laterality Status Provider Name and Address Organization Details Recorded Time 04/28/20 19 Caesarean Section completed Breann Padilla [place] [facility] 01/11/2020 16:03:44 10/05/19 19 Date of Last Pap Smear completed Breann Padilla [place] [facility] 10/05/2018 11:03:43 10/25/19 18 HYSTEROSCOPY, WITH ENDOMETRIAL ABLATION (SURG) completed Wyatt Baptiste [place] [facility] 10/27/2017 07:44:46 07/13/20 14 Endometrial Biopsy completed Wyatt Baptiste [place] [facility] 07/13/2014 13:33:38 09/15/19 10 Caesarean Section completed Isaac Corbett [place] [facility] 07/13/2014 10:50:31 01/22/20 03 Caesarean Section completed Andraegabrielejames Joshikermit [place] [facility] 07/13/2014 10:50:31 08/18/18 96 Other completed Michelle Menezes MD Attn: Accounting,[address] [place], [address], [place] [facility] 05/15/2015 14:22:38 Imaging Results Imaging Date Name Status LastModified by Organization Details LastModified Time 02/10/2019 US, obstetric, 2nd trimester completed [facility] Wyatt Baptiste MD [address] [place], [address], 03/04/2019 11:44:23 02/10/2019 US, obstetric, biophysical profile + non-stress test completed [facility] [address] [place], [address], 03/04/2019 11:44:23 02/10/2019 US, obstetric, 2nd trimester completed [facility] ([facility]) [address] [place], [address], 03/04/2019 11:44:23 03/10/2019 US, obstetric, 3rd trimester completed [facility] [address] [place], [address], 03/18/2019 23:31:37 03/10/2019 US, obstetric, 3rd trimester completed [address], [address], 03/25/2019 11:10:06 03/10/2019 US, obstetric, biophysical profile + non-stress test completed [facility] [address], [address], 05/18/2019 16:43:20 04/06/2019 US, obstetric, 3rd trimester completed [facility] [address], [address], 05/18/2019 16:43:20 04/06/2019 US, obstetric, follow-up completed [facility] [address], [address], 05/18/2019 16:43:20 02/03/2020 CT, abdomen + pelvis, w/ contrast completed [facility] Information not available 02/07/2020 15:06:30 02/03/2020 US, pelvis, transabdominal + transvaginal completed [facility] Information not available 02/07/2020 15:06:30 Procedure Notes None recorded. Medical Equipment None Reported. Allergies No known drug allergies Medications Name Sig Start Date Stop Date Status Note LastModified by Organization Details LastModified Time multivita min tablet Take 1 tablet every day by oral route. 2018 active Not Available Not Available Not Avai lable amoxicill in 500 mg capsule 09/09 completed Not Available Not Available Not Available metformin 500 mg tablet Take 1 tablet twice a day by oral route. 11/13 completed Not Available Not Available Not Available azithromy michael 250 mg tablet 11/13 completed Not Available Not Available Not Available glyburide 5 mg tablet Take 1 tablet twice a day by oral route. 10/05 completed Not Available Not Available Not Available ibuprofen 800 mg tablet 03/18 completed Not Available Not Available Not Available Glucagon Emergency Kit 1 mg solution for injection 05/18 completed Not Available Not Available Not Available fluconazo le 150 mg tablet Take 1 tablet by oral route. 02/04 completed Not Available Not Available Not Available hydrocodo ne 5 mg-acetam inophen 325 mg tablet 09/09 completed Not Available Not Available Not Available Alcohol Pads Apply 1 pad as needed by topical route. 05/18 completed Not Available Not Available Not Available spironola ctone 100 mg tablet Take 1 tablet twice a day by oral route. 10/05 completed Not Available Not Available Not Available penicilli n V potassium 500 mg tablet Take 1 tablet twice a day by oral route for 10 days. 10/05 completed Not Available Not Available Not Available metronida zole 500 mg tablet Take 1 tablet twice a day by oral route. 10/05 completed Not Available Not Available Not Available cimetidin e 800 mg tablet Take 1 tablet every day by oral route. 10/05 completed Not Available Not Available Not Available aspirin 81 mg tablet,de layed release Take 2 tablets every day by oral route. 01/10 completed Not Available Not Available Not Available ketorolac 10 mg tablet active Not Available Not Available Not Available Vitamin tablet Take 1 tablet every day by oral route as directed for 30 days. 05/18 completed Not Available Not Available Not Available amoxicill in 875 mg tablet 01/10 completed Not Available Not Available Not Available Depo-Prov era 150 mg/mL intramusc ular suspensio n Inject 2 mL every 3 months by intramus cular route. 11/13 completed 09/19/17 pt states received depot provera x 2 @ [facility] on 09/06/17 or 09/07/17 , cb-rma Not Available Not Available Not Available nicotine (polacril ex) 4 mg gum Chew 1 piece of gum every 2 hours by oral route. 03/18 completed Not Available Not Available Not Available hydrocodo ne 7.5 mg-acetam inophen 325 mg tablet 11/13 completed Not Available Not Available Not Available cephalexi n 500 mg capsule 01/10 completed Not Available Not Available Not Available simvastat in 20 mg tablet Take 1 tablet every day by oral route. 10/05 completed Not Available Not Available Not Available cyanocoba scot (vit B-12) 1,000 mcg/mL injection solution Inject 1 mL every month by intramus cular route. 05/18 completed Not Available Not Available Not Available ferrous sulfate 325 mg (65 mg iron) tablet Take 1 tablet twice a day by oral route. 09/09 completed Not Available Not Available Not Available metformin 1,000 mg tablet Take 1 tablet twice a day by oral route. 11/13 completed Not Available Not Available Not Available neomycin- polymyxin -dexameth 3.5 mg/mL-10, 000 unit/mL-0 .1% eye drops 08/29 completed Not Available Not Available Not Available ranitidin e 150 mg tablet 05/18 completed Not Available Not Available Not Available progester one micronize d 200 mg capsule Take 1 capsule twice a day by oral route. 05/18 completed Not Available Not Available Not Available folic acid 1 mg tablet TAKE 4 TABLETS BY MOUTH EVERY DAY 01/10 completed Not Available Not Available Not Available norethind rupert acetate 5 mg tablet Take 1 tablet every day by oral route. 09/09 completed Not Available Not Available Not Available ibuprofen 600 mg tablet 01/10 completed Not Available Not Available Not Available letrozole 2.5 mg tablet Take 1 tablet every day by oral route. 10/05 completed Not Available Not Available Not Available methylpre dnisolone 4 mg tablets in a dose pack 09/09 completed Not Available Not Available Not Available ondansetr on 4 mg disintegr ating tablet Take 1 tablet every 8 hours by oral route as needed. 03/18 completed Not Available Not Available Not Available glyburide 1.25 mg tablet Take 1 tablet every day by oral route. 2019 active Not Available Not Available Not Avai lable doxycycli ne hyclate 100 mg tablet 10/05 completed Not Available Not Available Not Available Microlet Lancet 05/18 completed Not Available Not Available Not Available Bactrim DS 800 mg-160 mg tablet Take 1 tablet every 12 hours by oral route. 2014 active Not Available Not Available Not Avai lable Toradol 10 mg tablet Take 1 tablet every 6 hours by oral route as needed. 2013 active Not Available Not Available Not Avai lable NuvaRing 0.12 mg-0.015 mg/24 hr vaginal Insert 1 vaginal ring every month by vaginal route. 09/09 completed Not Available Not Available Not Available medroxypr ogesteron e 150 mg/mL intramusc ular syringe 11/13 completed Not Available Not Available Not Available Mononessa (28) 0.25 mg-35 mcg tablet 09/09 completed Not Available Not Available Not Available Novolog FlexPen U-100 Insulin aspart 100 unit/mL (3 mL) subcutane ous 05/18 completed Not Available Not Available Not Available nitrofura ntoin monohydra te/macroc rystals 100 mg capsule 10/05 completed Not Available Not Available Not Available Oysco 500/D 500 mg-5 mcg (200 unit) tablet 09/09 completed Not Available Not Available Not Available ferrous gluconate 324 mg (38 mg iron) tablet Take 1 tablet twice a day by oral route. 10/05 completed Not Available Not Available Not Available Calcium 600 + D(3) 600 mg-10 mcg (400 unit) tablet 1 TABLET TWICE DAILY 2018 active Not Available Not Available Not Avai lable metoclopr amide 10 mg disintegr ating tablet Take 1 tablet 4 times a day by oral route. 05/18 completed Not Available Not Available Not Available OneTouch Delica Lancets 33 gauge 05/18 completed Not Available Not Available Not Available 28 mg iron-800 mcg tablet 08/29 completed Not Available Not Available Not Available OneTouch Verio test strips 05/18 completed Not Available Not Available Not Available calcium 600 mg (as carbonate )-vitamin D3 20 mcg (800 unit) tablet Take 1 tablet twice a day by oral route. 10/05 completed Not Available Not Available Not Available Gummy 400 mcg-35 mg-25 mg-5 mg chewable tablet Take 1 tablet every day by oral route. 03/18 completed Not Available Not Available Not Available 19 29 mg iron-1 mg chewable tablet Chew 1 tablet every day by oral route for 30 days. 08/29 completed Not Available Not Available Not Available Xulane 150 mcg-35 mcg/24 hr transderm al patch Apply 1 patch every week by transder mal route. active Not Available Not Available No t Available Levemir FlexTouch U-100 Insulin 100 unit/mL (3 mL) subcutane ous pen 05/18 completed Not Available Not Available Not Available Caltrate Gummy Bites 250 mg-10 mcg (400 unit) chewable tablet Take 1 tablet twice a day by oral route. 01/10 completed Not Available Not Available Not Available OneTouch Verio Flex Meter 05/18 completed Not Available Not Available Not Available Slynd 4 mg (28) tablet Take 1 tablet every day by oral route. 2019 active Not Available Not Available Not Avai lable Vitals Date Recorded Body height Provider Name an d Address Organization Details Last Updated DateTime 03/04/2019 161.29 cm Breann Padilla MA [facility] 2018 11:15:10 Date Recorded Body mass index (BMI) Provider Name and Address Organization Details Last Updated DateTime 03/04/2019 41.7 kg/m2 Breann Padilla MA [facility] 2018 11:15:16 Date Recorded Body weight Provider Name an d Address Organization Details Last Updated DateTime 03/04/2019 362882.75619 g Wyatt Baptiste [facility] 2018 11:46:17 Date Recorded Body height Provider Name an d Address Organization Details Last Updated DateTime 03/18/2019 161.29 cm Jenna Salcedo MA [facility] 03/18 12:29:43 Date Recorded Body height Provider Name an d Address Organization Details Last Updated DateTime 05/18/2019 161.29 cm Breann Padilla MA [facility] 2018 16:28:44 Date Recorded Body mass index (BMI) Body weight Provider Name and Address Organization Details Last Updated DateTime 05/18/2019 38.7 kg/m2 856652.13829 g Breann Padilla MA [facility] 05/18/2019 16:32:11 Date Recorded Body height Provider Name an d Address Organization Details Last Updated DateTime 01/11/2020 161.29 cm Breann Padilla MA [facility] 2019 15:58:39 Date Recorded Body mass index (BMI) Body weight Provider Name and Address Organization Details Last Updated DateTime 01/11/2020 38.4 kg/m2 49704.32 g Breann Padilla MA [facility] 01/11/2020 15:59:00 Date Recorded Body height Provider Name an d Address Organization Details Last Updated DateTime 02/07/2020 161.29 cm Micaela walker MA [facility] 02/07/2020 10:12:32 Date Recorded Body mass index (BMI) Body weight Provider Name and Address Organization Details Last Updated DateTime 02/07/2020 38.4 kg/m2 17936.32 g [facility] 11:09:10 Date Recorded Heart rate Provider Name an d Address Organization Details Last Updated DateTime 02/07/2020 92 /min Wyatt [facility] 02/07/2020 15:02:42 Date Recorded Body temperature Provider Name a nd Address Organization Details Last Updated DateTime 02/07/2020 98 [degF] Wyatt Oliva [facility] 02/07/2020 15:02:51 Date Recorded Pain severity - 0-10 verbal numeric rating [Score] - Reported Provider Name and Address Organization Details Last Updated DateTime 02/07/2020 10 Wyatt Oliva [facility] 02/07/2020 15:03:13 Date Recorded Respiratory rate Provider Name a nd Address Organization Details Last Updated DateTime 02/07/2020 16 /min Wyatt Oliva [facility] 02/07/2020 15:04:08 Date Recorded Systolic blood pressure Diastolic blood pressure Provider Name and Address Organization Details Last Updated DateTime 03/04/2019 116 mm[Hg] 70 mm[Hg] Breann Padilla MA [facility] 03/04/2019 11:18:16 Date Recorded Systolic blood pressure Diastolic blood pressure Provider Name and Address Organization Details Last Updated DateTime 02/07/2020 90 mm[Hg] 58 mm[Hg] Micaela Monaco MA [facility] 02/07/2020 10:12:43 Social History Question Answer Notes LastModified by Organizat ion Details LastModified Time Tobacco Smoking Status Current Every Day Smoker Breann Padilla MA null, [facility] 01/11/2020 16:02:51 Do You Have An Advance Directive? No Information not available 05/15/2015 What Is Your Level Of Alcohol Consumption? Occasional Information not available 07/13/2014 If You Are , What Was Your Level Of Alcohol Consumption Prior To ? Occasional Information not available 10/05/2018 Is Blood Transfusion Acceptable In An Emergency? Yes Information not available 08/24/2015 What Is Your Level Of Caffeine Consumption? Occasional [email or web address] Information not available 09/09/2016 Live With Cats/exposure To Cat Litter No Information not available 10/05/2018 How Much Tobacco Do You Chew? None Information not available 08/24/2015 Are You Currently Employed? No Information not available 08/24/2015 What Type Of Diet Are You Following? REGULAR Information not available 08/24/2015 Which Illicit Or Recreational Drugs Have You Used? None Information not available 08/24/2015 Do You Or Have You Ever Used E-cigarettes Or Vape? Never Used Electronic Cigarettes Information not available 01/11/2020 Education 8 Information no t available 07/13/2014 What Is Your Occupation? [employer] Information not available 08/24/2015 Have There Been Any Changes To Your Family Or Social Situation? No Information no t available 10/05/2018 Frequent Air Travel No Information not available 10/05/2018 Are There Any Guns Present In Your Home? No Information not available 05/15/2015 Hard Of Hearing Or Deaf In One Or Both Ears? No Information not available 05/15/2015 Illicit Drugs Pre- None Information not available 10/05/2018 Legally Blind In One Or Both Eyes? No Information no t available 05/15/2015 Live Alone Or With Others? With Others Information not available 07/13/2014 Marital Status Informatio n not available 10/05/2018 What Was The Date Of Your Most Recent Tobacco Screening? 01/11/2020 Information not available 01/11/2020 How Many Children Do You Have? 2 Information not available 10/05/2018 Are There Any Occupational Health Risks Where You Work? None Information not available 10/05/2018 Performs Monthly Self-breast Exam? No Information no t available 07/13/2014 Do You Use Protection During Sex? No Information not available 07/13/2014 What Is Your Relationship Status? Single Information not available 07/13/2014 Seat Belts Used Routinely Yes Information not available 05/15/2015 Are You Sexually Active? Yes Information not available 07/13/2014 Smoke Alarm In Home Yes Information not available 05/15/2015 Do You Have Smoke And Carbon Monoxide Detectors In Your Home? No Information not available 10/05/2018 At What Age Did You Start Smoking Tobacco? 15 Information not available 07/13/2014 Are You Passively Exposed To Smoke? Yes Information no t available 10/05/2018 Do You Or Have You Ever Used Smokeless Tobacco? Never Used Smokeless Tobacco [email or web address] Information not available 03/18/2019 How Much Tobacco Do You Smoke? 1 PPW Information not available 01/11/2020 Smoking Pre- .5 PPD Information not available 10/05/2018 General Stress Level Medium Information not available 08/24/2015 Do You Use Sunscreen Routinely? No Information not available 05/15/2015 Supplements Information n ot available 10/05/2018 On What Date Was Tobacco Cessation Counseling Provided? 01/11/2020 Information not available 01/11/2020 How Many Years Have You Smoked Tobacco? 14 Information not available 07/13/2014 Sex: Unknown Functional Status Question Answer Note LastModified by Organization D etails LastModified Time What is your exercise level? Moderate Information not available 10/05/2018 Mental Status None recorded. Family History Relationship Description Onset Age of this Age Resolved Age Notes LastModified by Organization Details LastModified Time Mother Hypertensive disorder [email or web address] Not available 10/10 14:56:40 Mother Migraine [email or web address] Not availab le 10/10/2015 14:56:40 Father Hypercholest erolemia [email or web address] Not available 10/10 14:56:40 Father Osteoporosis mwasserman Not elizabeth ilable 10/10/2015 14:56:40 Medical History Condition Response Other Y High Blood Pressure N Breast Cancer N Lung Disease N Depression N Blood Clots N Breast Problem N Anesthesia Complications N Headaches/Migraines N Anxiety Disorder N Muscle, Joint, or Bone Problems N Arthritis N Polyps N Infertility Y Acid Reflux (GERD) N Cancer N Stroke N Endometriosis N High Cholesterol Y Liver Disease N Fibromyalgia N Kidney Disease N Heart Problems N Thyroid Problems N Kidney or Bladder Problems N GI Problems N Acne N Eating Disorder N Anemia N Diabetes N Ovarian Cancer N Blood Transfusions N Seizures/Epilepsy N Abuse/Domestic Violence N Asthma N Hepatitis N Heart Disease N Pre-Eclampsia N Hypertension N Osteoporosis N Gynecological History Statement/Question Response Abnormal Pap N Flow Light Date of LMP 12/24/2019 On BCP's at Conception? Y STIs/STDs N HPV Vaccine Y Age at Menarche 10 Current Control Method None Age at First Child 17 Sexually Active? Y Menses Monthly N Date of Last Pap Smear 10/05/2018 Sexual Problems? N LMP Approximate Desired Control Method Unknown Obstetrics History GPAL:G 3 P 3 0 0 2 Type Value Multiple Births 0 Full Term 3 Induced 0 Spontaneous 0 Premature 0 Living 2 Ectopics 0 Total 3 Immunizations Vaccine Type Date Status Note Provider Nam e and Address Organization Details Recorded Time Tdap 03/04/2019 completed Not Available [facility] 09/04/2019 02:42:38 Tdap 07/17/2015 completed Not Available [facility] 09/04/2019 02:30:20 Past Encounters Encounter ID Performer Location Encounter Start Date Encounter Closed Date Diagnosis/Indication Diagnosis SNOMED-CT Code Diagnosis ICD10 Code Diagnosis Note [id number] Wyatt Tiwari ([employer]) [address] [place] [address] [id number] 07/13/2014 10:13:46 07/13/2014 12:14:50 Menorrhagia 112978951 Dysmenorrhea [id number] Wyatt Tiwari ([employer]) [address] [place] [address] [id number] 0 07/27/2014 11:26:05 07/27/2014 11:55:12 Polycystic ovaries [id number] Wyatt Tiwari ([employer]) [address] [place] [address] [id number] 0 10/05/2014 15:09:16 10/05/2014 17:30:45 Recurrent urinary tract infection 795746503 Polycystic ovaries 33245849 Family charmaine nning surveillance [id number] CRIS Aldridge ([employer]) [address] [place] [address] [id number] 0 03/20/2015 15:29:41 03/20/2015 17:13:01 Polycystic ovaries 29731782 Hypercholesterolemia 12184901 Hyperlipidemia 25124224 Hyperglycemia 00547049 [id number] Te (Adult Med) [address] [place] [address] [id number] 05/15/2015 13:55:02 05/15/2015 14:48:11 General examination of patient [id number] Tobacco user 043998761 C essation was discussed, her response was It is probably not going to happen right now Overweight 346970438 Nor mal recent HBA1C Hyperlipidemia 81930676 She does not remember that when this was discussed with Dr. Baptiste, that her levels were significan tly high. She states that she was told that the Simvastati n was for PCOS/secon epifanio infertilit y. Mildly elevated lipid panel September 2014. Secondary female infertility 74887872 She has PCOS and she has failed Metformin and currently takes Simvastati n [id number] MD Te Yañez (Adult Med) [address] [place] [address] [id number] 0 07/17/2015 15:10:41 07/17/2015 15:59:33 Hyperlipidemia 14951143 E78.5 E28.2 She states that she has only been compliant with the Simvastati n for 4- 6 weeks Increased liver function 16403551 R94.5 The etiology is unclear, she should stop the SImvastati n for now, obtain an US and repeat her labs. Her LFTS in September 2014 were normal, her alcohol intake is minimal (2 drinks every other weekend) Impaired f asting glycemia 810309351 R73.01 Active or passive immunization 936990122 Z23 [id number] Wyatt Tiwari ([employer]) [address] [place] [address] [id number] 0 08/24/2015 14:31:33 08/24/2015 16:52:32 Anemia 595957396 D64.9 anemia Vitamin D deficiency 347 73633 E55.9 Contracept ion care management 421894632 Z30.9 Z30.8 [id number] MD Te Yañez (Adult Med) [address] [place] [address] [id number] 0 08/29/2015 14:04:44 08/29/2015 18:03:41 Overweight 686572547 E66.3 Normal recent HBA1C, her OGTT was abnormal and her TFTs were previously normal. I have discussed the need for further reduction in her total daily caloric intake. She was warned that she is on the verge of developing rosalba diabetes mellitus. We will seek the help of anutrition ist. The gentleman who came in with her said she is active and barely eats, he also stated that he sometimes had to force her to eat. I have encouraged a further reduction in her caloric intake and suggested a heaalthy diet with a reduction in carbohydra miladis and concentrat ed sweets. I have asked him not to force her to eat. Patient education materials on an appropriat e diet. Close follow up in October 2015. Impaired f asting glycemia 255654477 R73.01 I have discussed a decrease in her caloric intake s well of her risk of rosalba DM.. Steatosis of liver 1007 K76.0 Weight loss was discussed, the US findings were also discussed in detail as well the complicati ons of hepatic steatosis. Polycystic ovaries 27298 008 E28.2 [id number] Wyatt Tiwari ([employer]) [address] [place] [address] [id number] 0 10/10/2015 13:52:32 10/11/2015 15:07:11 Polycystic ovaries 99300399 E28.2 anovulator y cycles, failed Metformin. Changing to statin agents Menorrhagia 892636410 N9 2.0 Secondary female infertility 19601196 N97.8 [id number] Wyatt Tiwari ([employer]) [address] [place] [address] [id number] 0 09/09/2016 15:38:45 09/13/2016 16:22:42 Gynecologic examination 07061346 Z01.419 Polycystic ovaries 80279 008 E28.2 anovulator y cycles, failed Metformin. Changing to statin agents Secondary female infertility 67249260 N97.8 Venereal d isease screening 746263569 Z11.3 Diabetes m ellitus screening 361886126 Z13.1 [id number] Wyatt Baptiste Te ([employer]) [address] [place] [address] [id number] 0 03/25/2017 10:41:11 03/25/2017 16:23:50 Fertility education 000531956 Z31.62 Family charmaine nning surveillance 874033862 Z30.09 Polycystic ovaries 77526 008 E28.2 anovulator y cycles, failed Metformin. Changing to statin agents Impaired f asting glycemia 476941700 R73.01 [id number] RICARDO Ramirez ([employer]) [address] [place] [address] [id number] 0 08/29/2017 11:07:20 08/29/2017 13:04:42 Menorrhagia 540136501 N92.0 Will wait for results from mammogram and US prior to treatment Bloody nip ple discharge 397670152 N64.52 One time occurence 1 month ago to left breast during coitus Ordered mammogram and US per Up To Date Will FU with mammogram and US results and withhold contracept ion until resulted due to cancer being included in the differenti al for bloody nipple discharge Anemia 579606920 D64.9 Polycystic ovaries 10679 008 E28.2 Tobacco user 962106293 Z 72.0 Advised to quit Obesity 688777477 E66.9 Advised 30 minutes of exercise 5 days/week Advised to not drink her calories Advised 3 balanced meals/day with plenty of fruits and vegtables [id number] [facility]O [facility] ([facility] [employer]) [address] [place] [address] [id number] 0 09/05/2017 08:49:35 09/05/2017 12:15:37 Contraception care 952458891 Z30.40 Menorrhagia 114309391 N9 2.0 Will restart Depo at this timePatien t to f/u in 3 months prior to next Depo injection to see how medication is working [id number] RICARDO Ramirez ([employer]) [address] [place] [address] [id number] 0 09/19/2017 09:18:24 09/19/2017 10:30:50 Family planning surveillance 624969997 Z30.09 majority of appt discussing with pt placing self in best position to become pregadvise d to make appt with Dr. 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 Changing to statin agents [facility] nning surveillance 058827940 Z30.09 [id number] Wyatt Tiwari ([employer]) [address] [place] [address] [id number] 0 10/23/2017 10:04:38 10/23/2017 11:07:11 Menorrhagia 874496215 N92.0 Dysmenorrhea 530487639 N 94.6 [id number] Wyatt Tiwari ([employer]) [address] [place] [address] [id number] 0 11/13/2017 11:01:15 11/13/2017 14:04:43 Polycystic ovaries 68906835 E28.2 anovulator y cycles, failed Metformin. Changing to statin agents [facility] nning surveillance 165176900 Z30.09 Anemia 434571780 D64.9 anemia Fertility care 324784527 Z31.84 failed pcos meds [id number] Wyatt Tiwari [facility] ([facility]) [address] [place] [address] [id number] 0 01/05/2018 10:08:26 01/05/2018 12:34:45 Tear of vaginal wall 330404834 S31.41XD [facility] nning surveillance 684810817 Z30.09 [id number] Wyatt Tiwari [facility] ([employer]) [address] [place] [address] 87035-802 0 10/05/2018 10:26:42 10/06/2018 14:02:19 Routine care 880840984 Z34.90 Deliveries by [id number] O82 Obesity 317379482 Z68.41 Abnormal progesterone 13 8544386 R94.7 Hyperemesi s gravidarum 05512393 O21.0 Polycystic ovaries 37342 008 E28.2 anovulator y cycles, failed Metformin. 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 Changing to statin agents Hyperemesi s gravidarum 84011423 O21.0 Glucose to lerance test outside reference range 163183617 R73.09 [id number] Wyatt Tiwari ([employer]) [address] [place] [address] 82703-288 0 02/04/2019 10:33:17 02/04/2019 11:27:20 Routine care 640350209 Z34.90 Heterozygo us methylenetetrahydrofo late reductase mutation 7420953011 54568 E72.12 C677T Single mutation (C677T) identified Gestationa l diabetes mellitus 48562540 O24.419 Fasting hyperglyce damian with abnormal 3 hour GTT = Severe GDM, needs insulin per MFM. Transfer of care [id number] Wyatt Tiwari ([employer]) [address] [place] [address] 85403-676 0 03/04/2019 10:58:42 03/09/2019 08:43:39 Routine care 372677182 Z34.90 Heterozygo us methylenetetrahydrofo late reductase mutation 1644584254 12275 E72.12 C677T Single mutation (C677T) identified Polycystic ovaries 35769 008 E28.2 anovulator y cycles, failed Metformin. Changing to statin agents [id number] Wyatt Tiwari ([employer]ER) [address] [place] [address] 63755-176 0 03/18/2019 11:44:38 03/18/2019 13:15:26 Routine care 242987049 Z34.90 Heterozygo us methylenetetrahydrofo late reductase mutation 2643711909 95621 E72.12 C677T Single mutation (C677T) identified Secondary female infertility 43768835 N97.8 9 years Obesity 088072166 Z68.41 Deliveries by [id number] O82 [id number] Wyatt Tiwari ([employer]) [address] [place] [address] [id number] 0 05/18/2019 16:00:57 05/19/2019 12:44:44 Postoperative visit 548213230 Z09 Deliveries by [id number] O82 Family [facility] nning surveillance 845757493 Z30.09 Declines control at this time. [id number] Wyatt Tiwari ([employer]) [address] [place] [address] [id number] 0 01/11/2020 15:56:07 01/12/2020 10:23:10 Deliveries by [id number] O82 Polycystic ovary syndrome 757848484 E28.2 Obesity 830505344 Z68.41 Heterozygo us methylenetetrahydrofo late reductase mutation 3649557898 98436 E72.12 C677T Single mutation (C677T) identified Family [facility] nning surveillance 622101046 Z30.09 wants sterilizat ion Menorrhagia 511255417 N9 2.0 plan 1. Medical therapy pcos/pop2. Renetta Endometria l ablation/T ubal3. Hysterecto my [id number] Te ([employer]ER) [address] [place] [address] 27627-274 0 02/07/2020 09:56:04 02/08/2020 08:54:24 Mass of ovary 093475046 R19.09 plan 1. Medical therapy pcos/pop 2. Hysterecto my Pelvic mass 78712896 R19 .00 15.9cm cystic septated mass suspicious for neoplasm. Referred to Dr. Scott for further surgical management which may include hysterecto my with BSO. CA-125 was 148 (normal <35) Menorrhagia 071751043 N9 2.0 plan 1. Medical therapy pcos/pop2. Renetta Endometria l ablation/T ubal3. Hysterecto my Polycystic ovary syndrome 615738876 E28.2 Obesity 176947182 Z68.41 Deliveries by [id number] O82 Health Concerns Section Related Observation LastModified by Organization Detai ls LastModified Time None Recorded Concern Status LastModified by Organization Details LastModified Time None Recorded Advance Directives Directive N: Payers Encounter Date Sequence Insurance Name Policy Number Policy Pedraza Covered Member ID Pedraza Member ID Guarantor Name 03/04/2019 1 [place] [id number] Manfred Orville [id number] Radha Jacinto 03/18/2019 1 [place] [id number] Manfred Orville [id number] Radha Jacinto 05/18/2019 1 [place] [id number] Manfred Orville [id number] Radha Jacinto 01/11/2020 1 [place] [id number] Manfred Orville [id number] Radha Jacinto 02/07/2020 1 [place] [id number] Manfred Orville [id number] Radha Jacinto Notes Date Note Type Note Provider Name and Address Organization Details Recorded Time 03/04/2019 text/html Radha is a 33yo C F 25.3w with MTHFHR, polycystic ovaries, hypercholesterolemia, anemia, secondary female infertility, vitamin D deficiency, hyperlipidemia here for RICARDO. She is seeing [facility] for GDM. She has no complaints at todays visit. RAHEEM Yap - SIRegla 03/05/2019 17:21:48 03/04/2019 text/html OB ProblemReport ed bypatient.Associated Symptoms:no abdominal pain; no cramping; no contractions; normal movement; no bleeding; no ROM; no vaginal discharge; no vaginal/vulvar itching or irritation; no dysuria; no frequency; no urgency; no hematuria; no fever; no nausea; no emesis; no constipation; no diarrhea/loose stool; no edema; no visual changes; no headache; no dizziness Wyatt HurleyOlivaRAHEEM saul SI 03/05/2019 17:21:48 03/18/2019 text/html OB ProblemReport ed bypatient.Associated Symptoms:no abdominal pain; no cramping; no contractions; normal movement; no bleeding; no ROM; no vaginal discharge; no vaginal/vulvar itching or irritation; no dysuria; no frequency; no urgency; no hematuria; no fever; no emesis; no constipation; no diarrhea/loose stool; no edema; no visual changes; no headache; no dizziness;nausea 33 year old at 31.3 weeks with MTHFHR, polycystic ovaries, hypercholesterolemia, anemia, secondary female infertility, vitamin D deficiency, hyperlipidemia here for RICARDO. Wyatt Oliva jordan [place] Markie [facility] 03/19/2019 12:04:19 05/18/2019 text/html VisitReported bypatient.Onset/Timin g:date of delivery: (04/26/19) Quality:repeat LST C/S Context:complications of : GDM; feeding choice: breast and bottle Associated Symptoms:no abnormal bleeding; no pelvic pain; laceration well healed; no constipation; no fecal incontinence; no dysuria; no urinary incontinence; no fever; no problems; no mastitis 33 yo CF presents for visit. She had a c -section with cystectomy of a left ovarian cyst (5 x 10 cm) on 04/26/19. Pt notes that she's continued to have light vaginal bleeding and cramping from the umbilicus to the incision. This pain is worse with sitting up. She denies any other concerns today. RAHEEM Yap SI 05/18/2019 18:03:27 01/11/2020 text/html OB ProblemReport ed bypatient.Associated Symptoms:no abdominal pain; no cramping; no contractions; normal movement; no bleeding; no ROM; no vaginal discharge; no vaginal/vulvar itching or irritation; no dysuria; no frequency; no urgency; no hematuria; no fever; no emesis; no constipation; no diarrhea/loose stool; no edema; no visual changes; no headache; no dizziness;nauseaPostp artum VisitReported bypatient.Onset/Timin g:date of delivery: (04/26/19) Quality:repeat LST C/S Context:complications of : GDM; feeding choice: breast and bottle Associated Symptoms:no abnormal bleeding; no pelvic pain; laceration well healed; no constipation; no fecal incontinence; no dysuria; no urinary incontinence; no fever; no problems; no mastitis 33 year old with MTHFHR, polycystic ovaries, hypercholesterolemia, anemia, secondary female infertility, vitamin D deficiency, hyperlipidemia. She had a c -section with cystectomy of a left ovarian cyst (5 x 10 cm) on 04/26/19. Pt notes that she's continued to have abnormal vaginal bleeding RAHEEM Yap 01/11/2020 17:20:12 02/07/2020 text/html Pelvic PainRepor nyasia bypatient.Location:mi d pelvis Onset/Timin-7 days; gradual Duration:persistent Quality:worsening Severity:severe; pain level 10/10 Context:non-menstrual bleeding; history of ovarian cysts Alleviating Factors:none Associated Symptoms:no back pain; no chills; no constipation; no diarrhea; no pain with urination; normal emptying of bladder; no feelings of urgency; no blood in the urine; normal libido; no fever; no nausea; no vomiting; no nocturia; no sexual abuse; no ectopic pregnancies; no urinary frequency; no vaginal itching or irritation; no dyspareunia; Menorrhagia 33 year old with MTHFHR, polycystic ovaries, hypercholesterolemia, anemia, secondary female infertility, vitamin D deficiency, hyperlipidemia. She had a c -section with cystectomy of a left ovarian cyst (5 x 10 cm) on 04/26/19. Pt notes that she's continued to have abnormal vaginal bleeding and persistent pain. US performed at [facility] on 02/03/20 showed 15.9cm mass concerning for malignancy. She was seen in the ED at [facility] on 02/05/20 and Hgb was 7, was previously 12 at [place] 2 days prior. She was admitted to [facility] and received x2 unit blood. RAHEEM Yap 02/07/2020 15:29:35 OBGyn Episode Ob Episode Information Episode Created Date Number of Fetuses Patient Bloodtype Patient rh Status Prepregnancy Weight lbs Domestic Partner Domestic Partner Phone Father Name Airport Baggage Screener Status 10/05/19 19 1 DELETED Fetus Data First Name Last Name Admitted to NICU Weight (g) Sex Living Outcome Pediatric Complications Fetus ID Race Codes Race Delivery Type [id number] Reagan Calculation Initial Reagan Date Initial Exam Date Initial Exam Provider Initial Ultrasound Date Last Menstrual Period Date Ultra Sound Weeks Gestation 05/17/2019 10/05/2018 [email or web address] 08/10/2018 0 Eighteen To Twenty Week Reagan Update Ultra Sound Date Fundal Height At Umbil Quickening Date Ultra Sound Latest Weeks Gestation Final Reagan Confirmed By Final Reagan Confirmed Date Final Reagan Date Ultra Sound Latest Days Gestation 0 03/13/20 19 0 Menstrual History Last Menstrual Date Menses Monthly On Bcp Conception Prior Menses Frequency Hcg Plus Date Menarche Onset Age 1208/10/2018 true Delivery Information Delivery Date Delivery Type Labor Anesthesia Weeks Gestation Incision Type Labor Labor Length Hrs Delivered By Post Complications Tubal Sterilization Discharge Date Comments Discharge Information Feeding Method Contraceptive Method Maternal HG B and HCT Levels Ob Episode Information Episode Created Date Number of Fetuses Patient Bloodtype Patient rh Status Prepregnancy Weight lbs Domestic Partner Domestic Partner Phone Father Name Airport Baggage Screener Status 10/05/19 19 1 O Positive CLOSED Fetus Data First Name Last Name Admitted to NICU Weight (g) Sex Living Outcome Pediatric Complications Fetus ID Race Codes Race Delivery Type Farhana Brown n false 3855.53 2 F true Full Term Peds Dr. Janet Jasso, [facility] [id number] White Only Problems Problem Notes 02/04/19 baby girl, repeat c -Section, Breast and bottle, Dr. Gonzales, [place], [facility] undecided, [facility] baby name is Farhana Jacinto breast and bottle feeding. lance cruz [place] 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 [id number] Female sterilization 03/18/2019 [id number] Gestational diabetes mellitus 63280232 Reagan Calculation Initial Reagan Date Initial Exam Date Initial Exam Provider Initial Ultrasound Date Last Menstrual Period Date Ultra Sound Weeks Gestation 05/17/2019 10/05/2018 penelope 02/10/2019 08/10/2018 0 Eighteen To Twenty Week Reagan Update Ultra Sound Date Fundal Height At Umbil Quickening Date Ultra Sound Latest Weeks Gestation Final Reagan Confirmed By Final Reagan Confirmed Date Final Reagan Date Ultra Sound Latest Days Gestation 0 05/17/20 19 0 Pre-nancy Flowsheet Flowsheet Date 10/05/2018 Mckeon Score Blood Edema Fundus Height Fundus Units Glucose Ketones Leukocytes Nitrite Labor Signs Protein Cervic Dilation Cervic Effacement Cervic Station trace none 8.0 wks none negative none 1+ Type Weight in lbs Pre/Post Dialysis Refused Weight 247.369839694629 BP Diastolic BP Location Tested BP Systolic BP Type 76 110 sitting Fetus Heart Rate Present A Absent Fetus Movement A No Comments Hx of secondary female infer tility - 9 years. Flowsheet Date 01/07/2019 Mckeon Score Blood Edema Fundus Height Fundus Units Glucose Ketones Leukocytes Nitrite Labor Signs Protein Cervic Dilation Cervic Effacement Cervic Station neg 20 cm none trace none 2+ Type Weight in lbs Pre/Post Dialysis Refused Weight 244.256082135456 BP Diastolic BP Location Tested BP Systolic BP Type 64 108 sitting Fetus Heart Rate Present A 160 Present Fetus Movement A Yes Comments GET US SAL Flowsheet Date 02/04/2019 Mckeon Score Blood Edema Fundus Height Fundus Units Glucose Ketones Leukocytes Nitrite Labor Signs Protein Cervic Dilation Cervic Effacement Cervic Station neg none 25 cm none negative Pressure neg Type Weight in lbs Pre/Post Dialysis Refused Weight 243.005494799066 BP Diastolic BP Location Tested BP Systolic BP Type 80 110 sitting Fetus Heart Rate Present A 149 Present Fetus Movement A Yes Comments Flowsheet Date 03/04/2019 Mckeon Score Blood Edema Fundus Height Fundus Units Glucose Ketones Leukocytes Nitrite Labor Signs Protein Cervic Dilation Cervic Effacement Cervic Station neg none 29 cm none trace Pressure neg Type Weight in lbs Pre/Post Dialysis Refused Weight 239.642084635213 BP Diastolic BP Location Tested BP Systolic BP Type 70 116 sitting Fetus Heart Rate Present A 164 Present Fetus Movement A Yes Comments Flowsheet Date 03/18/2019 Mckeon Score Blood Edema Fundus Height Fundus Units Glucose Ketones Leukocytes Nitrite Labor Signs Protein Cervic Dilation Cervic Effacement Cervic Station neg none 36 cm none trace none neg Type Weight in lbs Pre/Post Dialysis Refused BP Diastolic BP Location Tested BP Systolic BP Type Fetus Heart Rate Present A 144 Present Fetus Movement A Yes Comments Flowsheet Date 05/18/2019 Mckeon Score Blood Edema Fundus Height Fundus Units Glucose Ketones Leukocytes Nitrite Labor Signs Protein Cervic Dilation Cervic Effacement Cervic Station Type Weight in lbs Pre/Post Dialysis Refused Weight 222.59647037299 BP Diastolic BP Location Tested BP Systolic BP Type Fetus Heart Rate Present Fetus Movement Comments Menstrual History Last Menstrual Date Menses Monthly On Bcp Conception Prior Menses Frequency Hcg Plus Date Menarche Onset Age 1208/10/2018 Genetic Screening And Infection History Question Response Note Patient's Age Will Be 35 Yea rs Or Older At Estimated Date of Delivery false Thalassemia (Setswana, Nepali, Mediterranean, Or Background): MCV < 80 false Neural Tube Defect (Meningom yelocele, Spina Bifida, Or Anencephaly) false Congenital Heart Defect false Down Syndrome false Neeraj-Sachs (eg, Religious, Cajun, [place] Timorese-Mclean) f alse Juan A Disease false Sickle Cell Disease Or Trait () false Hemophilia Or Other Blood Disorders false Muscular Dystrophy false Cystic Fibrosis false Kamiah's Chorea false Mental Retardation/Autism false If Yes, Was Person Tested For Fragile X? false Other Inherited Genetic Or Chromosomal Disorder false Maternal Metabolic Disorder (eg, Type 1 Diabetes , PKU) false Patient Or Baby's Father Had A Child With Defects Not Listed Above false Recurrent Loss, Or A Stillbirth false Medications (including Suppl ements, Vitamins, Herbs, OTC Drugs), Illicit/Recreational Drugs, Alcohol false If Yes, Agent(s) And Strength/Dosage false Any Other Genetic History false Live With Someone With TB Or Exposed To TB false Patient Or Partner Has History Of Genital Herpes false Rash Or Viral Illness Since Last Menstrual Perio d false History Of STD, Gonorrhea, Chlamydia, HPV, Syphi lis false Other Infection History true strep b carrier History of HIV false History of Hepatitis false Prior GBS-infected child false Plans and Education First Trimester Discussed Date Discussion Item Discussion Note Discuss ed By 04/15/2019 Anticipated course o f care penelope 04/15/2019 Alcohol penelope 04/15/2019 Intimate partner violence chas morneo 04/15/2019 Environmental/work hazards [facility] 04/15/2019 Screening for aneuploidy [facility] ssermquita 04/15/2019 Nutrition counseling ; special diet; dietary precautions (mercury, listeriosis) [facility] 04/15/2019 Childbirth classes/h ospital facilities [facility] 04/15/2019 HIV and other routin e tests [facility] 04/15/2019 Risk factors identif ied by history [facility] 04/15/2019 Weight gain counseling [facility] 04/15/2019 Exercise [facility] 04/15/2019 Teratogens [facility] 04/15/2019 Use of any medicatio ns (including supplements, vitamins, herbs, or OTC drugs) [facility] 02/04/2019 02/04/19 breast and bottle, -a [email or web address] 04/15/2019 Sexual activity [facility] 04/15/2019 Tobacco/smoking cess ation counseling (ask, advise, assess, assist, and arrange) [facility] 04/15/2019 Illicit/recreational drugs [facility] 04/15/2019 Dental care [facility] 04/15/2019 Travel [facility] 04/15/2019 Seat belt use [facility] 04/15/2019 Indications for ultrasonography [facility] 04/15/2019 Avoidance of saunas or hot tubs [facility] 04/15/2019 Toxoplasmosis precau tions (cats/raw meat) [facility] Second Trimester Discussed Date Discussion Item Discussion Note Discuss ed By 02/04/2019 Selecting a care provider 02/04/19 Dr[facility] [email or web address]/04[facility]2019 family planning/tubal sterilization 02/04/19 PPBC undecided, cb-a 04/15/2019 Depression screening (when indicated) [facility] 04/15/2019 Abnormal lab values [facility] an 04/15/2019 Signs and symptoms o f labor [facility] 04/15/2019 Intimate partner violence [facility] 04/15/2019 Tobacco/smoking cess ation counseling (ask, advise, assess, assist, and arrange) [facility] Third Trimester Discussed Date Discussion Item Discussion Note Discuss ed By 04/15/2019 Intimate partner violence [facility] 02/04/2019 Anesthesia plans 02/04/19 repeat section, cb-rma 04/15/2019 [place] education (n ewborn screening, jaundice, SIDS/safe sleeping position, car seat) [facility] 02/04/2019 Circumcision 02/04/19 baby gi rl, yes to circ if boy, [facility] 04/15/2019 Postterm counseling [facility] an 03/18/2019 movement monitoring given kick coun ts 02/04/2019 02/04/[email or web address]2019 Labor signs [facility] 03/18/2019 depression last pregn any did not have any issues with PPD [email or web address] 04/15/2019 Family medical leave or disability forms [facility] 04/15/2019 Tobacco/smoking cess ation counseling (ask, advise, assess, assist, and arrange) [facility] 03/18/2019 Trial of labor after (TOLAC) counseling n/a [place] [id number] 04/15/2019 Signs and symptoms o f preeclampsia [facility] Delivery Information Delivery Date Delivery Type Labor Anesthesia Weeks Gestation Incision Type Labor Labor Length Hrs Delivered By Post Complications Tubal Sterilization Discharge Date Comments 9 Regional-Sp inal 37.2 Low Transvers e None false 05/01/2019 Discharge Information Feeding Method Contraceptive Method Maternal HG B and HCT Levels Combination none Ob Episode Information Episode Created Date Number of Fetuses Patient Bloodtype Patient rh Status Prepregnancy Weight lbs Domestic Partner Domestic Partner Phone Father Name Airport Baggage Screener Status 08/24/19 16 1 CLOSED Fetus Data First Name Last Name Admitted to NICU Weight (g) Sex Living Outcome Pediatric Complications Fetus ID Race Codes Race Delivery Type 3628.73 6 M Full Term 10630 Reagan Calculation Initial Reagan Date Initial Exam Date Initial Exam Provider Initial Ultrasound Date Last Menstrual Period Date Ultra Sound Weeks Gestation 0 Eighteen To Twenty Week Reagan Update Ultra Sound Date Fundal Height At Umbil Quickening Date Ultra Sound Latest Weeks Gestation Final Reagan Confirmed By Final Reagan Confirmed Date Final Reagan Date Ultra Sound Latest Days Gestation 0 0 Menstrual History Last Menstrual Date Menses Monthly On Bcp Conception Prior Menses Frequency Hcg Plus Date Menarche Onset Age Delivery Information Delivery Date Delivery Type Labor Anesthesia Weeks Gestation Incision Type Labor Labor Length Hrs Delivered By Post Complications Tubal Sterilization Discharge Date Comments 3 Regional-Ep idural 40 0 Christoph Discharge Information Feeding Method Contraceptive Method Maternal HG B and HCT Levels Ob Episode Information Episode Created Date Number of Fetuses Patient Bloodtype Patient rh Status Prepregnancy Weight lbs Domestic Partner Domestic Partner Phone Father Name Airport Baggage Screener Status 08/24/19 16 1 CLOSED Fetus Data First Name Last Name Admitted to NICU Weight (g) Sex Living Outcome Pediatric Complications Fetus ID Race Codes Race Delivery Type 3628.73 6 M Full Term 96640 Reagan Calculation Initial Reagan Date Initial Exam Date Initial Exam Provider Initial Ultrasound Date Last Menstrual Period Date Ultra Sound Weeks Gestation 0 Eighteen To Twenty Week Reagan Update Ultra Sound Date Fundal Height At Umbil Quickening Date Ultra Sound Latest Weeks Gestation Final Reagan Confirmed By Final Reagan Confirmed Date Final Reagan Date Ultra Sound Latest Days Gestation 0 0 Menstrual History Last Menstrual Date Menses Monthly On Bcp Conception Prior Menses Frequency Hcg Plus Date Menarche Onset Age Delivery Information Delivery Date Delivery Type Labor Anesthesia Weeks Gestation Incision Type Labor Labor Length Hrs Delivered By Post Complications Tubal Sterilization Discharge Date Comments 0 General 42 0 baby Manfred @ 3 months of age, cb-rma Discharge Information Feeding Method Contraceptive Method Maternal HG B and HCT Levels
--- OUTSIDE RECORDS SUMMARY | 2024-09-14 19:49 | XMS_ITS | Referral Summary ---
Author Organization [facility] Address [address] [place] [address] Care Team Providers Care Heavy Lift Rigger Name Role Phone Wyatt Baptiste MD Primary Care Provider [phone] Source Comments [facility],non-owned Affiliates and Associated Physician Practices is amultiple site organization consisting of ambulatory clinics and hospital sitesin [place], [place], [place] and [place]. This disclosure is being madepursuant to the Care Everywhere program and may not contain all information available regarding this patient. Last updated 18.[facility] Allergies No known active allergies Medications * [...] it is not recommended by either the [employer] ([employer]) or the [employer] ([employer]OG) in [...] Per record, sent with orders for repeat [facility] 02/10 Laboratory summary 02/16/2019) ALT 36 [...] effects experienced previously Close contact with our perinatal educator to optimize glycemic control on at [...] from birthweights. I advised Radha that the [employer] recommends delivery [...] post prandial <130 Close contact with our perinatal educator to optimize glycemic control on at [...] Next Due MMR 05/01/2019,05/01/2019(Deferred: - duplicate order) Social History Tobacco Use Types Packs/Day Years [...] Mass Index 47.85 04/27/2019 7:42 PM CDT Functional Status Functional Status Response Date of Assess ment Is person deaf or have serious hearing difficult y? No 04/28/2019 Is person blind or have serious difficulty seein g? No 04/28/2019 Does person have serious dif ficulty walking/climbing stairs? No 04/28/2019 Does person have difficulty dressing/bathing? No 04/28/2019 Does person have difficulty doing errands alone? No 04/28/2019 Cognitive Status Response Date of Assessm ent Does person have difficulty concentrating/remembering/making decisions? No 04/28/2019 Plan of Treatment Not on file Advance Directives * Full Code (Latest Code Status on File) Date Activated Date Inactivated Comments 04/28/2019 12:45 AM 05/01/2019 4:52 PM Care Teams Heavy Lift Rigger Relationship Specialty Start Date End Date Wyatt Baptiste MD [address] [place] [id number] PCP - General 04/20/19
--- OUTSIDE RECORDS SUMMARY | 2024-09-14 19:49 | XMS_ITS | Patient Health Summary ---
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 This disclosure is being madepursuant to the Care Everywhere program and may not contain all information available regarding this patient. Last updated 18.[facility] Allergies No known active allergies Medications * Be aware that medications may not be up to date on this document. Alwaysverify current medications with the patient. * Vit-Fe Fumarate-FA ( PO) * raNITIdine (ZANTAC) 150 MG tablet Take 150 mg by mouth 2 times daily * iron polysaccharides (NIFEREX 150) 150 MG capsule(Started 04/30/2019) Take 1 capsule by mouth 2 times daily 3 refills remaining * oxyCODONE-acetaminophen (PERCOCET) 5-325 MG tablet(Started 04/30/2019) Take 1 tablet by mouth every 6 hours as needed for Pain * ibuprofen (MOTRIN) 600 MG tablet(Started 04/30/2019) Take 1 tablet by mouth every 6 hours as needed for Pain 1 refill remaining * docusate sodium (COLACE) 100 MG capsule(Started 04/30/2019) Take 1 capsule by mouth 2 times daily 1 refill remaining Active Problems Problem Noted Date Diagnosed Date Ovarian cyst affecting pregn lukas in third trimester, antepartum 03/10/2019 Nausea and vomiting of , antepartum 05/2019 Hyperlipidemia 02/10/2019 MTHFR gene mutation 02/10/2019 History of Elevated LFTs 02/10/2019 Gestational diabetes mellitus (GDM) 02/09/2019 Supervision of high-risk of young karli igravida 02/09/2019 PCOS (polycystic ovarian syndrome) 02/09/2019 Maternal morbid obesity, antepartum 02/09/2019 Late care affecting 9 Migraines Resolved Problems Problem Noted Date Diagnosed Date Resolved Date Abdominal pain 04/27/2019 05/01/2019 PCO (polycystic ovaries) 10/2018 Gestational diabetes 019 Urinary tract infection 02/15 Immunizations * MMR(Given 05/01/2019) Social History Tobacco Use Types Packs/Day Years [...] Mass Index 47.85 04/27/2019 7:42 PM CDT Procedures * GLUCOSE - POINT OF CARE(Performed 04/30/2019) * GLUCOSE - POINT OF CARE(Performed 04/29/2019) * CBC W AUTO DIFFERENTIAL(Performed 04/29/2019) * BLOOD TYPE VERIFICATION(Performed 04/28/2019) * FENTANYL URINE(Performed 04/28/2019) * URINE DRUG SCREEN IMMUNOASSAY(Performed 04/28/2019) * BLOOD GASES CORD KALEB (ISTAT)(Performed 04/28/2019) * BLOOD GASES CORD ART (ISTAT)(Performed 04/28/2019) * PATHOLOGY TISSUE EXAM (STL)(Performed 04/28/2019) Performed for Diagnosis unknown * NEURAXIAL BLOCK(Performed 04/28/2019) * PREPARE RBC LEUKOREDUCED UNIT(Performed 04/28/2019) * SECTION (EMERGENCY)(Performed 04/28/2019) * TYPE + SCREEN PANEL(Performed 04/28/2019) Performed for Abdominal pain, unspecified abdominal location * CBC W AUTO DIFFERENTIAL(Performed 04/28/2019) Performed for Abdominal pain, unspecified abdominal location * SONOGRAM - COMPLETE(Performed 04/06/2019) Performed for Ovarian cyst affecting in third trimester, antepartum (HCC), Nausea and vomiting of , antepartum (HCC), History of Elevated LFTs, MTHFR gene mutation, Hyperlipidemia,unspecified hyperlipidemia type, Late care affecting , antepartum (HCC), Maternalmorbid obesity, antepartum (HCC), PCOS (polycystic ovarian syndrome), Gestational diabetes mellitus(GDM), antepartum, gestational diabetes method of control unspecified ([facility]), Supervision of high-risk of young multigravida ([facility]), Periodic headache syndrome, not intractable * SONOGRAM - COMPLETE(Performed 03/10/2019) Performed for Nausea and vomiting of , antepartum (HCC), Maternal morbid obesity, antepartum (HCC), Gestational diabetes mellitus (GDM), antepartum, gestational diabetes method of control unspecified ([facility]), Supervision of high-risk of young multigravida ([facility]), PCOS (polycystic ovarian syndrome), Late care affecting , antepartum (HCC), Hyperlipidemia, unspecified hyperlipidemia type, MTHFR gene mutation, History of Elevated LFTs * HEMOGLOBIN A1C(Performed 02/16/2019) * TSH(Performed 02/16/2019) * T4 FREE(Performed 02/16/2019) * URINALYSIS W/MICROSCOPIC REFLEX TO CULTURE(Performed 02/16/2019) * COMPREHENSIVE METABOLIC PANEL(Performed 02/16/2019) * LIPID PROFILE(Performed 02/16/2019) * CULTURE URINE(Performed 02/16/2019) * CULTURE URINE REFLEXED(Performed 02/16/2019) * SONOGRAM - COMPLETE(Performed 02/10/2019) Performed for Gestational diabetes mellitus (GDM), antepartum, gestational diabetes method of control unspecified ([facility]), Supervision of high-risk of young multigravida (HCC), Obesity affecting , antepartum (HCC), Late care affecting , antepartum (HCC) Results * GLUCOSE - POINT OF CARE (04/30/2019 6:38 AM CDT) Only the most recent of2 resultswithin the time period is included. Pathologist [facility] Glucose WB/POC 73 70 - 106 mg/dL 04/30/2019 6:45 AM CDT [facility] Specimen Type Arterial/C apillary 04/30/2019 6:45 AM CDT [facility] Blood BLOOD SPECIMEN / Unknown 04/30/2019 6:38 AM CDT 04/30/2019 6:45 AM CDT Vane Alarcon MD LAB - POINT OF CARE ORDERABLES [facility] [address], [place] [id number] * (ABNORMAL) CBC W AUTO DIFFERENTIAL (04/29/2019 5:07 AM CDT) Only the most recent of2 resultswithin the time period is included. [facility] WBC 13.6(H) 4.4 - 10.7 x10E9/L 04/29/2019 5:27 AM CDT [facility] WBC Corrected 04/29/2019 5:27 AM CDT [facility] RBC 2.99(L) 3.80 - 5.20 x10E12/L 04/29/2019 5:27 AM CDT [facility] Hemoglobin 7.8(L) 12.0 - 15.6 gm/dL 04/29/2019 5:27 AM CDT [facility] Hematocrit 25.3(L) 35.9 - 45.5 % 04/29/2019 5:27 AM CDT [facility] MCV 84.6 80.7 - 98.3 fl 04/29/2019 5:27 AM CDT [facility] MCH 26.1(L) 26.7 - 34.0 pg 04/29/2019 5:27 AM CDT [facility] MCHC 30.8 30.8 - 35.9 gm/dL 04/29/2019 5:27 AM CDT [facility] Platelet Count 208 153 - 416 x10E9/L 04/29/2019 5:27 AM [facility] RDW-CV 14.4 12.1 - 14.9 % 04/29/2019 5:27 AM CDT [facility] MPV 11.5 9.4 - 12.9 fl 04/29/2019 5:27 AM [facility] Neutrophils % 74.8(H) 44.0 - 73.0 % 04/29/2019 5:27 AM [facility] Lymphocytes % 16.3(L) 20.0 - 43.0 % 04/29/2019 5:27 AM [facility] Monocytes % 7.5 5.0 - 13.0 % 04/29/2019 5:27 AM [facility] Eosinophils % 0.4 0.0 - 6.0 % 04/29/2019 5:27 AM [facility] Basophils % 0.1 0.0 - 2.0 % 04/29/2019 5:27 AM [facility] Immature Granulocytes 0.9 0 - 1 % 04/29/2019 5:27 AM [facility] Neutrophil Absolute 10.14(H) 2.01 - 7.14 x10E9/L 04/29/2019 5:27 AM T [facility] Lymphocytes Absolute 2.21 1.07 - 3.94 x10E9/L 04/29/2019 5:27 AM [facility] Monocytes Absolute 1.02 0.26 - 1.07 x10E9/L 04/29/2019 5:27 AM [facility] Eosinophils Absolute 0.05 0 - 0.47 x10E9/L 04/29/2019 5:27 AM [facility] Basophils Absolute 0.02 0 - 0.08 x10E9/L 04/29/2019 5:27 AM [facility] Immature Granulocytes Absolute 0.12(H) 0.00 - 0.06 x10E9/L 04/29/2019 5:27 AM [facility] nRBC Auto 0 /100 WBC 04/29/2019 5:27 AM [facility] Blood BLOOD SPECIMEN / Unknown Lab Venipuncture / Unknown 04/29/2019 5:07 AM CDT 04/29/2019 5:17 AM CDT Gloria Pritchard MD LAB - HEMATOLOGY O RDERABLES Performing Organization Address City/[facility]/ZIP Co de Phone Number [facility] [address] [place] [address] * BLOOD TYPE VERIFICATION (04/28/2019 6:56 AM CDT) ABO O 04/28/2019 7:25 AM CDT [facility] Rh Type Positive 04/28/2019 7:25 AM CDT [facility] Blood Bank BLOOD SPECIMEN / Unknown Venipuncture / Unknown 04/28/2019 6:56 AM CDT 04/28/2019 7:06 AM CDT Rose Perez MD LAB - BLOOD BANK ORD ERABLES Performing Organization Address [facility]/ZIP Co de Phone Number [facility] [address] [place] [address] * FENTANYL URINE (04/28/2019 6:36 AM CDT) Fentanyl Negative ng/mL 05/11/2019 6:07 PM CDT [facility] ([facility]) Comment:REFERENCE RANGE: NOT ESTABLISHED Norfentanyl Negative ng/mL 05/11/2019 6:07 PM CDT [facility] ([facility]) Comment:REFERENCE RANGE: NOT ESTABLISHED Sufentanil Negative ng/mL 05/11/2019 6:07 PM CDT [facility] ([facility]) Comment:REFERENCE RANGE: NOT ESTABLISHED Alfentanil Negative ng/mL 05/11/2019 6:07 PM CDT [facility] ([facility]) Comment:REFERENCE RANGE: NOT ESTABLISHED Norsufentanil Negative ng/mL 05/11/2019 6:07 PM CDT [facility] ([facility]) Comment:REFERENCE RANGE: NOT ESTABLISHED Acetyl Fentanyl Negative NEGATIVE ng/mL 05/11/2019 6:07 PM CDT [facility] ([facility]) Acetyl Norfentanyl Negative NEGATIVE ng/mL 05/11/2019 6:07 PM CDT [facility] ([facility]) Comment: This test was developed and its performance characteristics determined by [facility]. ??It has not been cleared or approved by the Food and Drug Administration. Urine URINE / Unknown Collection / Unknown 04/28/2019 6:36 AM CDT 04/28/2019 6:48 AM CDT Narrative [facility] ([facility]) - 05/11/2019 6:07 PM CDT Performed at: ??01 - [employer] [address] [place] [address] ??[phone] Primary Products Inspectors: Sole Santana [facility], Phone: ??[phone] Sue Rodriguez MD LAB - URINE CHEMISTR Y ORDERABLES [facility] ([facility]) [address] [place] [address] * DRUG SCREEN TOX URINE PANEL (04/28/2019 6:36 AM CDT) Amphetamines Screen Urine Not detected Not detected 04/28/2019 7:21 AM CDT [facility] Barbiturates Screen Urine Not detected Not detected 04/28/2019 7:21 AM CDT [facility] Benzodiazepines Screen Urine Not detected Not detected 04/28/2019 7:21 AM CDT [facility] Cannabinoids Screen Urine Not detected Not detected 04/28/2019 7:21 AM CDT [facility] Cocaine Screen Urine Not detected Not detected 04/28/2019 7:21 AM T [facility] Methadone Screen Urine Not detected Not detected 04/28/2019 7:21 AM T [facility] Opiate Screen Urine Not detected Not detected 04/28/2019 7:21 AM CDT [facility] Phencyclidine Screen Urine Not detected Not detected 04/28/2019 7:21 AM CDT [facility] Urine URINE / Unknown Collection / Unknown 04/28/2019 6:36 AM CDT 04/28/2019 6:48 AM CDT Narrative [facility] - 04/28/2019 7:21 AM CDT This drug screen is designed for MEDICAL purposes only. It is not to be used for legal purposes, including but not limited to worker's comp, police investigations, occupational issues, child custody, etc. ??Any positive result is only presumptive and must be confirmed with a separate confirmatory test ordered by the physician. Drug Screening Test Cutoff Values: AMPHETAMINES ?1000 ng/mL BARBITURATES ? 200 ng/mL BENZODIAZEPINES ??200 ng/mL CANNABINOIDS(THC) 50 ng/mL COCAINE ?300 ng/mL METHADONE ?300 ng/mL OPIATES ?300 ng/mL PHENCYCLIDINE(PCP)25 ng/mL Sue Rodriguez MD LAB - URINE CHEMISTR Y ORDERABLES Performing Organization Address [facility] de Phone Number [facility] [address] [place] [address] * (ABNORMAL) BLOOD GASES CORD KALEB (ISTAT) (04/28/2019 4:50 AM CDT) pH Cord Venous POCT 7.37 7.28 - 7.40 pH 04/28/2019 6:04 AM [facility] pCO2 Cord Venous POCT 34(L) 35 - 45 mm hg 04/28/2019 6:04 AM [facility] pO2 Cord Venous POCT 15(L) 22 - 33 mm hg 04/28/2019 6:04 AM [facility] HCO3 Cord Arterial POCT 19.9(L) 22 - 24 mmol/L 04/28/2019 6:04 AM [facility] BE Cord Venous POCT Calc -4 -6.4 - 1.6 mmol/L 04/28/2019 6:04 AM [facility] TCO2 Cord Venous POCT 21(L) 22 - 30 mmol/L 04/28/2019 6:04 AM [facility] O2 Saturation % Cord Venous Calc POCT 19 % 04/28/2019 6:04 AM [facility] Site CORD KALEB 04/28/2019 6:04 AM [facility] Sample iSTAT CORD V 04/28/2019 6:04 AM [facility] Blood CORD BLOOD SPECIMEN / Unknown 04/28/2019 4:50 AM CDT 04/28/2019 6:04 AM CDT Vane Alarcon MD LAB - POINT OF CARE ORDERABLES Performing Organization Address [facility] Co de Phone Number [facility] [address] [place] [phone] * (ABNORMAL) BLOOD GASES CORD ART (ISTAT) (04/28/2019 4:46 AM CDT) pH Cord Arterial POCT 7.27 7.20 - 7.34 pH 04/28/2019 6:04 AM CDT [facility] pCO2 Cord Arterial POCT 47.6 45 - 55 mm hg 04/28/2019 6:04 AM CDT [facility] pO2 Cord Arterial POCT 12 12 - 25 mm hg 04/28/2019 6:04 AM CDT [facility] HCO3 Cord Arterial POCT 21.8(L) 22 - 24 mmol/L 04/28/2019 6:04 AM CDT [facility] BE Cord Arterial POCT -5(L) -2.9 - 8.3 mmol/L 04/28/2019 6:04 AM CDT [facility] TCO2 Cord Arterial POCT 23 mmol/L 04/28/2019 6:04 AM CDT [facility] O2 Saturation Cord Art % Calc POCT 10 % 04/28/2019 6:04 AM CDT [facility] Site CORD ART 04/28/2019 6:04 AM CDT [facility] Sample iSTAT CORD A 04/28/2019 6:04 AM CDT [facility] Blood CORD BLOOD SPECIMEN / Unknown 04/28/2019 4:46 AM CDT 04/28/2019 6:04 AM CDT Vane Alarcon MD LAB - POINT OF CARE ORDERABLES [facility] [address] [place] [address] * GROSS + MICRO EXAM (STL) (04/28/2019 4:40 AM CDT) Case Report Surgical Pathology Report ? Case: [id number] ? Authorizing Provider: ??Rose Perez MD ? Collected: ? 04/28/2019 04:40 AM ? Ordering Location: ? [facility] 5 LDR ? Received: ?04/29/2019 06:11 AM ? Pathologist: ? Leonel Sanabria MD ? Specimens: ?? A) - Ovarian Cyst ? B) - Placenta ? 05/08/2019 6:43 AM CDT [facility] Final Diagnosis ovarian cyst, excision (A): - Benign mucinous cystadenoma Goss placenta, 38 weeks 2 daysgestation, delivery (B): - Trimmed placental weight:610 grams, normal for gestational age (expected 365-629 g) - Fetoplacental ratio: 6.3, normal for gestational age (expected 5.6-8.3) - Three vessel umbilical cord with no evidence of funisitis - Membranes with mild chronic chorionitis - Mature third trimester placenta with focal dystrophic calcifications and fibrin deposition 05/08/2019 6:43 AM CDT [facility] Clinical History The patient is a 33 y/o woman with hx of ovarian cyst. 05/08/2019 6:43 AM [facility] Gross Description A. The specimen is received fixed in formalin in one container for gross and microscopic examination, labeled with the patient's name, Radha Jacinto, and ovarian cyst and consists of one flattened, irregularly-shaped segment of pink-marcus membranous tissue measuring 15 x 3 x 0.2 cm. The specimen is serially sectioned to show soft, pink-marcus tissue. Rough Rounder Machine sections are submitted as A1-A3. Specimen B, placenta consists of a goss, disc-shaped placenta measuring 15 x 15 x 4 cm and weighing 610 grams. The umbilical cord has an eccentric insertion 6 cm from the placental edge and measures 20 cm in length and 1.2 cm in diameter. It is trivascular. The membranes are pink-marcus, translucent, and insert marginally over 100% of the circumference. The maternal surface has intact, red-marcus cotyledons. The surface is smooth, purple-marcus. The specimen is serially sectioned to show soft, red-marcus parenchyma. No lesions or infarcts are seen. Rough Rounder Machine sections are submitted as follow: B1 - membranes and umbilical cord B2-B4 - placenta. IA/ns/maureen 05/08/2019 6:43 AM [facility] Microscopic Description The microscopic examination substantiates the final diagnosis. No evidence of malignancy is noted in specimen A 05/08/2019 6:43 AM [facility] Disclaimer All histochemical and/or immunohistochemical results are interpreted with controls that demonstrate appropriate staining reactions before reporting results. Note on use of immunocytochemistry reagents: This test was developed and its performance characteristic determined by [facility], Department of Laboratory Medicine. It has not been cleared or approved by the U.S. Food and Drug Administration (FDA). The FDA has determined that such clearance or approval is not necessary. The test is used for clinical purpose. It should not be regarded as investigational or for research. This laboratory is certified to perform high complexity testing. 05/08/2019 6:43 AM [facility] Embedded Images 05/08/2019 6:43 AM [facility] Pathology/Cytology ENTIRE PLACENTA / Unknown 04/28/2019 4:40 AM CDT 04/29/2019 6:11 AM CDT Miscellaneous samples (specimen) OVARIAN CYST SPECIMEN / Unknown 04/28/2019 5:13 AM CDT 04/28/2019 7:18 AM CDT Rose Perez MD LAB - PATHOLOGY/CYTO LOGY ORDERABLES Performing Organization Address [facility]/State/ZIP Co de Phone Number [facility] [address] [place] [address] * Neuraxial Block (04/28/2019 4:17 AM CDT) Narrative Sandro Perales APRN-CRNA - 04/28/2019 4:17 AM CDT Sandro Perales APRN-CRNA ? 04/28/2019 ??4:18 AM Neuraxial Block Note ?? Pre-Procedure: ?? Procedure Name: ??Neuraxial Block Patient Location: ??OB Indications: ??surgical anesthesia Pre-Anesthetic Checklist: ??Patient identified, IV Checked, Risks and benefits discussed, Surgical consent verified, Monitors and equipment, Site examined, Pre-op evaluation done, Time-out performed, Informed consent obtained, Questions answered/anesthesia questions answered and Allergies reviewed Monitors: ??BP and continuous pluse ox Patient Condition: ??awake Patient Position: ??sitting Procedure: ?? Block Type: ??Spinal Prep: ??Betadine Sterile Field: ??mask, cap/hat, sterile established and sterile gloves Approach: ??midline Skin was localized? ??Yes Skin localized with: lidocaine (XYLOCAINE) 1 % injection, 1 mL Spinal Block: ?? Is this procedure for postop pain? ??Yes ? Reason: ??anticipated postoperative pain ??anticipated abdominal pain ? Diagnosis: ??labor Needle Type: ??pencil-point Needle Gauge: ??25 Needle Length: ??90 mm Number of Attempts: ??1 CSF: ??free flow Procedure Tolerance: ??tolerated well Sensory Level: ??T6 Motor Blockade: ??Yes Position post procedure: ??left uterine displacement Vital Signs: ??Vital sings monitored and stable throughout. ??See anesthesia record for details. Staff: ?? Anesthesia Provider: ??Sandro Perales APRN-CRNA ?? - ?? performed the procedure Sandro [facility] ORDERABLES * PREPARE (CROSSMATCH) RBC UNIT(S), 2 Units (04/28/2019 4:15 AM CDT) Product Code [id number] [facility] Unit Donor # [id number] S [facility] ABO Donor Type O [facility] Rh Type Unit POS [facility] Unit Status Ret'd [facility] BLO OD BANK LAB ABO Rh Type Unit OPOS [facility] Donor Unit Expiration Date [facility] Blood Type Barcode 5100 [facility] Product Code [id number] [facility] Unit Donor # [id number] S [facility] ABO Donor Type O [facility] Rh Type Unit POS [facility] BL OOD BANK LAB Unit Status Ret'd [facility] BLO OD BANK LAB ABO Rh Type Unit OPOS [facility] Donor Unit Expiration Date [facility] Blood Type Barcode 5100 [facility] Blood Bank BLOOD SPECIMEN / Unknown 04/28/2019 4:15 AM CDT Gloria Pritchard MD LAB - BLOOD BANK O TOM Performing Organization Address City/[facility]/ZIP Co de Phone Number [facility] [address] [phone] * TYPE + SCREEN PANEL (04/28/2019 1:11 AM CDT) ABO O 04/28/2019 2:43 AM CDT [facility] Rh Type Positive 04/28/2019 2:43 AM CDT [facility] Comment:History checked. Col lect retype. Antibody Screen Negative 04/28/2019 2:43 AM CDT [facility] Blood Bank BLOOD SPECIMEN / Unknown Venipuncture / Unknown 04/28/2019 1:11 AM CDT 04/28/2019 1:49 AM CDT Gloria Pritchard MD LAB - BLOOD BANK O TOM [facility] [address] [place] [address], [facility] [phone] * SONOGRAM - COMPLETE (04/06/2019 2:02 PM CDT) Only the most recent of3 resultswithin the time period is included. Anatomical Region Laterality Modality Other 04/06/2019 2:02 PM CDT Narrative 04/06/2019 8:26 PM CDT ? [facility] ? [facility] ?PHONE: ??FAX: Pat. Name: ?RUDDYRADHAShirley. No: ?[id number] Study Date: ?? 04/06/2019 ??2:02pm , Age: ? 1985, 33 Pregnancies: ?? 3, Para 2 Height: ? 63 in Weight: ? 244 lb LMP: ?06/06/2018 GA by LMP: ?43w3d GA by Base: ?? 35w1d ?? ALEJA: 05/10/2019 GA by US: ? 35w5d ?? ALEJA: 05/06/2019 GA Selected: ??35w1d (From Known E) ALEJA: ?05/10/2019 Referring MD: Wyatt Baptiste MD Supervisor Weaving: ??Vanna Valladares RDMS CPT4: ? 88072 BMI: ?43.22 Hist/Ind: ? Growth ?Large Left Adnexal Cyst ?Class III obesity ?GDM ?PCOS ?Prior C/S x2 MEASUREMENTS & AGE ? GROWTH EVALUATION Measurement ??GA ? Range ? Srce %for GA Ratios ----- ---- ------- BPD ??8.7 cm 35w1d (45p7e-53c8t) Hadl BPD 52% FL/BPD 0.79 (0.71 - 0.87) HC ??31.6 cm 35w3d (35z3r-89k3h) Hadl HC ??23% FL/AC ??0.21 (0.20 - 0.24) AC ??33.0 cm 37w0d (28n6d-71b7y) Hadl AC ??93% HC/AC ??0.96 (0.93 - 1.12) FL ?? 6.9 cm 35w2d (82z2e-86g8h) Hadl FL ??46% CI ? 0.77 (0.70 - 0.86) HL ?? 6.1 cm 35w4d (70w4m-62s1i) Palomo HL ??56% GA for sonogram 35w5d (14v0l-55a0v) ?? Weight Estimate: based on (HL,BPD,HC,AC,FL) Avg ? Weight: 2863 gm (2445-3280gm) Had ? : 6lbs, 4oz ? Normal: 2626 gm (1969- 3283gm) Had ? Wt% ? 76% for 35w1d Heart Rate: 137 bpm Amniotic Fluid Index: 15.4cm (07.9-24.9) Q1: 7.5cm ??Q2: 2.5cm ??Q3: 4.0cm ??Q4: 1.2cm ?? EVAL, PLACENTA Presentation: cephalic Placenta: anterior Heart Rate: 137 bpm Amniotic Fluid Volume: normal MATERNAL ANATOMY Ovarian Cysts LxHxW (cm) L1: 11.4 x 11.3 Desc: Septated cyst CLINICAL SUMMARY Study Number: 3 ?? A single fetus is seen in the cephalic presentation. ??The measurements today are consistent with what is expected. ??The ALEJA is based on a prior ultrasound. ??The amniotic fluid volume is normal. ?? No MAJOR structural anomalies are seen given the limitations of the ultrasound study today. ?? IMPRESSION: Single, live, IUP at 35w1d. ?? growth: Normal ?? Amniotic fluid volume: Normal ?? RECOMMEND: Follow up ultrasound with 8 point BPP weekly until delivery Thank you for allowing us the opportunity to care for your patient. ?? Clyde Cardona MD <Electronic Signature> ??04/06/2019 08:26pm Deana Freeman MD [facility] ORDERABLES * CULTURE URINE REFLEXED (02/16/2019 2:05 PM CDT) Reflexive Urine Culture CULTURE INDICATED - RESULTS TO FOLLOW [facility] Comment: Test Performed at: [employer] [address] ??[id number] TAMARA HERNANDEZ DO,MPH 02/16/2019 2:05 PM CDT 02/16/2019 2:11 PM CDT Joanne Monterroso SURGICAL INSTRUMENT REPAIR SPECIALIST-ORAL THERAPIST LAB - MICROBIOL OGY ORDERABLES [facility] [id number] [place] [address] * (ABNORMAL) URINALYSIS W/MICROSCOPIC REFLEX TO CULTURE (02/16/2019 2:05 PM CDT) Color UA DARK YELLOW YELLOW [facility] Appearance CLOUDY(A) CLEAR [facility] Specific [place] UA 1.020 1.001 - 1.035 [facility] pH UA 6.0 5.0 - 8.0 [facility] Glucose UA NEGATIVE NEGATIVE [facility] Bilirubin UA NEGATIVE NEGATIVE [facility] Ketone UA 2+(A) NEGATIVE [facility] Blood UA NEGATIVE NEGATIVE [facility] Protein UA NEGATIVE NEGATIVE [facility] Nitrite NEGATIVE NEGATIVE [facility] Leukocyte Esterase 1+(A) NEGATIVE [facility] WBC UA 6-10(A) < OR = 5 /HPF [facility] RBC UA 0-2 < OR = 2 /HPF [facility] Epithelial Cell UA 20-40(A) < OR = 5 /HPF [facility] Transitional Epithelial Cells 0-5 < OR = 5 /HPF [facility] Bacteria UA FEW(A) NONE SEEN /HPF [facility] Hyaline Casts NONE SEEN NONE SEEN /LPF [facility] Comments MODERATE MUCOUS THREADS [facility] Comment: Test Performed at: [employer] [place], [place] ??[id number] TAMARA HERNANDEZ DO,MPH 02/16/2019 2:05 PM CDT 02/16/2019 2:11 PM CDT Joanne Monterroso SURGICAL INSTRUMENT REPAIR SPECIALIST-ORAL THERAPIST LAB - URINALYSI S ORDERABLES [facility] [id number] [place] [address] * (ABNORMAL) HEMOGLOBIN A1C (02/16/2019 2:05 PM CDT) Hemoglobin A1c 6.1(H) <5.7 % of total Hgb [facility] Comment: For someone without known diabetes, a hemoglobin A1c value between 5.7% and 6.4% is consistent with prediabetes and should be confirmed with a follow-up test. For someone with known diabetes, a value <7% indicates that their diabetes is well controlled. A1c targets should be individualized based on duration of diabetes, age, comorbid conditions, and other considerations. This assay result is consistent with an increased risk of diabetes. Currently, no consensus exists regarding use of hemoglobin A1c for diagnosis of diabetes for children. Test Performed at: [facility] [id number] [place], [place] ??[phone] TAMARA HERNANDEZ DO,MPH 02/16/2019 2:05 PM CDT 02/16/2019 2:11 PM CDT Joanne Loc [facility] - CHEMISTRY ORDERABLES Performing Organization Address [facility] Phone Number [facility] [phone] [place] [address] * CULTURE URINE (02/16/2019 2:05 PM CDT) Culture [facility] Comment: ??CULTURE, URINE, ROUTINE ?MICRO NUMBER: ?[id number] ??TEST STATUS: ? FINAL ??SPECIMEN SOURCE: ?? URINE ??SPECIMEN QUALITY: ??ADEQUATE ??RESULT: ?Multiple organisms present, each less than 10,000 ? CFU/mL. These organisms, commonly found on ? external and internal genitalia, are considered ? to be colonizers. No further testing performed. Test Performed at: [facility] [facility] ??[phone] TAMARA HERNANDEZ DO,MPH 02/16/2019 2:05 PM CDT 02/16/2019 2:11 PM CDT Joanne Monterroso [facility] - MICROBIOL OGY ORDERABLES Performing Organization Address [facility] de Phone Number [facility] [phone] [place] [address] * (ABNORMAL) COMPREHENSIVE METABOLIC PANEL (02/16/2019 2:05 PM CDT) Glucose 110(H) 65 - 99 mg/dL [facility] Comment: ? Fasting reference interval For someone without known diabetes, a glucose value between 100 and 125 mg/dL is consistent with prediabetes and should be confirmed with a follow-up test. BUN 7 7 - 25 mg/dL [facility] Creatinine 0.48(L) 0.50 - 1.10 mg/dL [facility] eGFR by MDRD 130 > OR = 60 mL/min/1.7 3m2 [facility] eGFR by MDRD 150 > OR = 60 mL/min/1.7 3m2 [facility] BUN/Creatinine Ratio 15 6 - 22 (calc) [facility] Sodium 136 135 - 146 mmol/L [facility] Potassium 3.9 3.5 - 5.3 mmol/L [facility] Chloride 102 98 - 110 mmol/L [facility] CO2 24 20 - 32 mmol/L [facility] Calcium 9.1 8.6 - 10.2 mg/dL [facility] Protein Total 6.9 6.1 - 8.1 g/dL [facility] Albumin 3.7 3.6 - 5.1 g/dL [facility] Globulin Total 3.2 1.9 - 3.7 g/dL (calc) [facility] Albumin/Globulin Ratio 1.2 1.0 - 2.5 (calc) [facility] Bilirubin Total 0.4 0.2 - 1.2 mg/dL [facility] Alkaline Phosphatase 78 33 - 115 U/L [facility] AST 25 10 - 30 U/L [facility] ALT 36(H) 6 - 29 U/L [facility] Comment: Test Performed at: [employer] [address] ??[phone] TAMARA HERNANDEZ DO,MPH 02/16/2019 2:05 PM CDT 02/16/2019 2:11 PM CDT Joanne Monterroso SURGICAL INSTRUMENT REPAIR SPECIALIST-ORAL THERAPIST LAB - CHEMISTRY ORDERABLES Performing Organization Address City/State/[facility] Co de Phone Number [facility] [address] [place] [address] * TSH (02/16/2019 2:05 PM CDT) TSH 1.55 mIU/L [facility] Comment: ?Reference Range ?> or = 20 Years ??0.40-4.50 ? Ranges ?First trimester ?0.26-2.66 ?Second trimester ?? 0.55-2.73 ?Third trimester ?0.43-2.91 Test Performed at: [facility] [id number] [place], [place] ??[address] TAMARA HERNANDEZ DO,MPH 02/16/2019 2:05 PM CDT 02/16/2019 2:11 PM CDT Joanne Combspatrick [facility] - CHEMISTRY ORDERABLES Performing Organization Address [facility] [place] [address] * T4 FREE (02/16/2019 2:05 PM CDT) T4 Free 1.1 0.8 - 1.8 ng/dL [facility] Comment: Test Performed at: [employer] [address] ??[id number] TAMARA HERNANDEZ DO,MPH 02/16/2019 2:05 PM CDT 02/16/2019 2:11 PM CDT Joanne Combspatrick [facility]ER[facility] LAB - CHEMISTRY ORDERABLES Performing Organization Address [facility] [place] [address] * (ABNORMAL) LIPID PROFILE (02/16/2019 2:05 PM CDT) Cholesterol 229(H) <200 mg/dL [facility] HDL Cholesterol 36(L) >50 mg/dL [facility] Triglycerides 166(H) <150 mg/dL [facility] LDL Calculated 162(H) mg/dL (calc) [facility] Comment: Reference range: <100 Desirable range <100 mg/dL for primary prevention; ?? <70 mg/dL for patients with CHD or diabetic patients with > or = 2 CHD risk factors. LDL-C is now calculated using the Andrew calculation, which is a validated novel method providing better accuracy than the Friedewald equation in the estimation of LDL-C. Andres PAUL et al. ZANDER. 2013;310(19): 7403-9527 (http://education.Pharnext.[employer]/faq/DDF134) CHOL/HDLC RATIO 6.4(H) <5.0 (calc) [facility] Non HDL Cholesterol 193(H) <130 mg/dL (calc) [facility] Comment: For patients with diabetes plus 1 major ASCVD risk factor, treating to a non-HDL-C goal of <100 mg/dL (LDL-C of <70 mg/dL) is considered a therapeutic option. Test Performed at: [facility] [id number] [place], [place] ??[phone] TAMARA HERNANDEZ DO,MPH 02/16/2019 2:05 PM CDT 02/16/2019 2:11 PM CDT Joanne Montreroso SURGICAL INSTRUMENT REPAIR SPECIALIST-ORAL THERAPIST LAB - CHEMISTRY ORDERABLES Performing Organization Address City/State/[facility] Co de Phone Number [facility] [phone] [place] [address] Care Teams Wire Coiler Machine Operator Relationship Specialty Start Date End Date Wyatt Baptiste MD [address] [place] [address] PCP - General 04/20/19
[2024-09-14 19:54] VITALS: BP 145/92; PULSE 94; RESP 20; TEMP 37.7; O2SAT 99
[2024-09-14 22:04] VITALS: BP 138/82; PULSE 110; RESP 18; TEMP 37.9; O2SAT 98
--- OUTSIDE RECORDS SUMMARY | 2024-09-14 22:13 | XMS_ITS | Patient Health Summary ---
Author Organization [facility] Address [address] [place] [address] Care Team Providers Care Professor Computer Science Name Role Phone Wyatt Baptiste MD Primary Care Provider [phone] Note from [facility],non-owned Affiliates and Associated Physician Practices is amultiple site organization consisting of ambulatory clinics and hospital sitesin [place], [place], [place] and [place]. This disclosure is being madepursuant to the Care Everywhere program and may not contain all information available regarding this patient. Last updated 18.[facility] Allergies No known active allergies Medications [...] antepartum, gestational diabetes method of control unspecified ([facility]), Supervision of high-risk of young multigravida ([facility]), Periodic headache syndrome, not intractable * SONOGRAM - COMPLETE(Performed 03/10/2019) Performed for Nausea and vomiting of , antepartum (HCC), Maternal morbid obesity, antepartum (HCC), Gestational diabetes mellitus (GDM), antepartum, gestational diabetes method of control unspecified ([facility]), Supervision of high-risk of young multigravida ([facility]), PCOS (polycystic ovarian syndrome), Late care affecting [...] antepartum, gestational diabetes method of control unspecified ([facility]), Supervision of high-risk of young multigravida (HCC), Obesity affecting , antepartum (HCC), Late care affecting , antepartum (HCC) Results * GLUCOSE - POINT OF CARE (04/30/2019 6:38 AM CDT) Only the most recent of2 resultswithin the time period is included. Pathologist [facility] Glucose WB/POC 73 70 - 106 mg/dL 04/30/2019 6:45 AM CDT [facility] Specimen Type Arterial/C apillary 04/30/2019 6:45 AM CDT [facility] Blood BLOOD SPECIMEN / Unknown 04/30/2019 6:38 AM CDT 04/30/2019 6:45 AM CDT Vane Alarcon MD LAB - POINT OF CARE ORDERABLES [facility] [address] [place], [place] [id number] * (ABNORMAL) CBC W AUTO DIFFERENTIAL (04/29/2019 5:07 AM CDT) Only the most recent of2 resultswithin the time period is included. [facility] WBC 13.6(H) 4.4 - 10.7 x10E9/L 04/29/2019 5:27 AM CDT [facility] WBC Corrected 04/29/2019 5:27 AM CDT [facility] RBC 2.99(L) 3.80 - 5.20 x10E12/L 04/29/2019 5:27 AM CDT [facility] Hemoglobin 7.8(L) 12.0 - 15.6 gm/dL 04/29/2019 5:27 AM CDT [facility] Hematocrit 25.3(L) 35.9 - 45.5 % 04/29/2019 5:27 AM CDT [facility] MCV 84.6 80.7 - 98.3 fl 04/29/2019 5:27 AM CDT [facility] MCH 26.1(L) 26.7 - 34.0 pg 04/29/2019 5:27 AM CDT [facility] MCHC 30.8 30.8 - 35.9 gm/dL 04/29/2019 5:27 AM CDT [facility] Platelet Count 208 153 - 416 x10E9/L 04/29/2019 5:27 AM [facility] RDW-CV 14.4 12.1 - 14.9 % 04/29/2019 5:27 AM CDT [facility] MPV 11.5 9.4 - 12.9 fl 04/29/2019 5:27 AM [facility] Neutrophils % 74.8(H) 44.0 - 73.0 % 04/29/2019 5:27 AM [facility] Lymphocytes % 16.3(L) 20.0 - 43.0 % 04/29/2019 5:27 AM [facility] Monocytes % 7.5 5.0 - 13.0 % 04/29/2019 5:27 AM [facility] Eosinophils % 0.4 0.0 - 6.0 % 04/29/2019 5:27 AM [facility] Basophils % 0.1 0.0 - 2.0 % 04/29/2019 5:27 AM [facility] Immature Granulocytes 0.9 0 - 1 % 04/29/2019 5:27 AM [facility] Neutrophil Absolute 10.14(H) 2.01 - 7.14 x10E9/L 04/29/2019 5:27 AM T [facility] Lymphocytes Absolute 2.21 1.07 - 3.94 x10E9/L 04/29/2019 5:27 AM [facility] Monocytes Absolute 1.02 0.26 - 1.07 x10E9/L 04/29/2019 5:27 AM [facility] Eosinophils Absolute 0.05 0 - 0.47 x10E9/L 04/29/2019 5:27 AM [facility] Basophils Absolute 0.02 0 - 0.08 x10E9/L 04/29/2019 5:27 AM [facility] Immature Granulocytes Absolute 0.12(H) 0.00 - 0.06 x10E9/L 04/29/2019 5:27 AM [facility] nRBC Auto 0 /100 WBC 04/29/2019 5:27 AM [facility] Blood BLOOD SPECIMEN / Unknown Lab Venipuncture / Unknown 04/29/2019 5:07 AM CDT 04/29/2019 5:17 AM CDT Gloria Pritchard MD LAB - HEMATOLOGY O RDERABLES Performing Organization Address City/[facility]/ZIP Co de Phone Number [facility] [address] [place] [address] * BLOOD TYPE VERIFICATION (04/28/2019 6:56 AM CDT) ABO O 04/28/2019 7:25 AM CDT [facility] Rh Type Positive 04/28/2019 7:25 AM CDT [facility] Blood Bank BLOOD SPECIMEN / Unknown Venipuncture / Unknown 04/28/2019 6:56 AM CDT 04/28/2019 7:06 AM CDT Rose Perez MD LAB - BLOOD BANK ORD ERABLES Performing Organization Address [facility]/ZIP Co de Phone Number [facility] [address] [place] [address] * FENTANYL URINE (04/28/2019 6:36 AM CDT) Fentanyl Negative ng/mL 05/11/2019 6:07 PM CDT [facility] ([facility]) Comment:REFERENCE RANGE: NOT ESTABLISHED Norfentanyl Negative ng/mL 05/11/2019 6:07 PM CDT [facility] ([facility]) Comment:REFERENCE RANGE: NOT ESTABLISHED Sufentanil Negative ng/mL 05/11/2019 6:07 PM CDT [facility] ([facility]) Comment:REFERENCE RANGE: NOT ESTABLISHED Alfentanil Negative ng/mL 05/11/2019 6:07 PM CDT [facility] ([facility]) Comment:REFERENCE RANGE: NOT ESTABLISHED Norsufentanil Negative ng/mL 05/11/2019 6:07 PM CDT [facility] ([facility]) Comment:REFERENCE RANGE: NOT ESTABLISHED Acetyl Fentanyl Negative NEGATIVE ng/mL 05/11/2019 6:07 PM CDT [facility] ([facility]) Acetyl Norfentanyl Negative NEGATIVE ng/mL 05/11/2019 6:07 PM CDT [facility] ([facility]) Comment: This test was developed and its performance characteristics determined by [facility]. ??It has not been cleared or approved by the Food and Drug Administration. Urine URINE / Unknown Collection / Unknown 04/28/2019 6:36 AM CDT 04/28/2019 6:48 AM CDT Narrative [facility] ([facility]) - 05/11/2019 6:07 PM CDT Performed at: ??01 - [employer] [address] [place] [address] ??[id number] Electrical Assembler: Sole Santana [facility], Phone: ??[phone] Sue Rodriguez MD LAB - URINE CHEMISTR Y ORDERABLES [facility] ([facility]) [address] [place] [address] * DRUG SCREEN TOX URINE PANEL (04/28/2019 6:36 AM CDT) Amphetamines Screen Urine Not detected Not detected 04/28/2019 7:21 AM CDT [facility] Barbiturates Screen Urine Not detected Not detected 04/28/2019 7:21 AM CDT [facility] Benzodiazepines Screen Urine Not detected Not detected 04/28/2019 7:21 AM CDT [facility] Cannabinoids Screen Urine Not detected Not detected 04/28/2019 7:21 AM CDT [facility] Cocaine Screen Urine Not detected Not detected 04/28/2019 7:21 AM T [facility] Methadone Screen Urine Not detected Not detected 04/28/2019 7:21 AM T [facility] Opiate Screen Urine Not detected Not detected 04/28/2019 7:21 AM CDT [facility] Phencyclidine Screen Urine Not detected Not detected 04/28/2019 7:21 AM CDT [facility] Urine URINE / Unknown Collection / Unknown 04/28/2019 6:36 AM CDT 04/28/2019 6:48 AM CDT Narrative [facility] - 04/28/2019 7:21 AM CDT This [...] URINE CHEMISTR Y ORDERABLES Performing Organization Address [facility] de Phone Number [facility] [address] [place] [address] * (ABNORMAL) BLOOD GASES CORD KALEB (ISTAT) (04/28/2019 4:50 AM CDT) pH Cord Venous POCT 7.37 7.28 - 7.40 pH 04/28/2019 6:04 AM [facility] pCO2 Cord Venous POCT 34(L) 35 - 45 mm hg 04/28/2019 6:04 AM [facility] pO2 Cord Venous POCT 15(L) 22 - 33 mm hg 04/28/2019 6:04 AM [facility] HCO3 Cord Arterial POCT 19.9(L) 22 - 24 mmol/L 04/28/2019 6:04 AM [facility] BE Cord Venous POCT Calc -4 -6.4 - 1.6 mmol/L 04/28/2019 6:04 AM [facility] TCO2 Cord Venous POCT 21(L) 22 - 30 mmol/L 04/28/2019 6:04 AM [facility] O2 Saturation % Cord Venous Calc POCT 19 % 04/28/2019 6:04 AM [facility] Site CORD KALEB 04/28/2019 6:04 AM [facility] Sample iSTAT CORD V 04/28/2019 6:04 AM [facility] Blood CORD BLOOD SPECIMEN / Unknown 04/28/2019 4:50 AM CDT 04/28/2019 6:04 AM CDT Vane Alarcon MD LAB - POINT OF CARE ORDERABLES Performing Organization Address [facility] Co de Phone Number [facility] [address] [place] [phone] * (ABNORMAL) BLOOD GASES CORD ART (ISTAT) (04/28/2019 4:46 AM CDT) pH Cord Arterial POCT 7.27 7.20 - 7.34 pH 04/28/2019 6:04 AM CDT [facility] pCO2 Cord Arterial POCT 47.6 45 - 55 mm hg 04/28/2019 6:04 AM CDT [facility] pO2 Cord Arterial POCT 12 12 - 25 mm hg 04/28/2019 6:04 AM CDT [facility] HCO3 Cord Arterial POCT 21.8(L) 22 - 24 mmol/L 04/28/2019 6:04 AM CDT [facility] BE Cord Arterial POCT -5(L) -2.9 - 8.3 mmol/L 04/28/2019 6:04 AM CDT [facility] TCO2 Cord Arterial POCT 23 mmol/L 04/28/2019 6:04 AM CDT [facility] O2 Saturation Cord Art % Calc POCT 10 % 04/28/2019 6:04 AM CDT [facility] Site CORD ART 04/28/2019 6:04 AM CDT [facility] Sample iSTAT CORD A 04/28/2019 6:04 AM CDT [facility] Blood CORD BLOOD SPECIMEN / Unknown 04/28/2019 4:46 AM CDT 04/28/2019 6:04 AM CDT Vane Alarcon MD LAB - POINT OF CARE ORDERABLES [facility] [address] [place] [address] * GROSS + MICRO EXAM (STL) (04/28/2019 4:40 AM CDT) Case Report Surgical Pathology Report ? Case: [id number] ? Authorizing Provider: ??Rose Perez MD ? Collected: ? 04/28/2019 04:40 AM ? Ordering Location: ? [facility] 5 LDR ? Received: ?04/29/2019 06:11 AM ? Pathologist: ? Leonel Sanabria MD ? Specimens: ?? A) - Ovarian Cyst ? B) - Placenta ? 05/08/2019 6:43 AM CDT [facility] Final Diagnosis ovarian cyst, excision (A): [...] and fibrin deposition 05/08/2019 6:43 AM CDT [facility] Clinical History The patient is a 33 y/o woman with hx of ovarian cyst. 05/08/2019 6:43 AM [facility] Gross Description A. The specimen is received fixed in formalin in one container for gross and microscopic examination, labeled with the patient's name, Radha Jacinto, and ovarian cyst and consists of one flattened, irregularly-shaped segment of pink-marcus membranous tissue measuring 15 x 3 x 0.2 cm. The specimen is serially sectioned to show soft, pink-marcus tissue. [employer] sections are submitted as A1-A3. Specimen B, [...] parenchyma. No lesions or infarcts are seen. [employer] sections are submitted as follow: B1 - membranes and umbilical cord B2-B4 - placenta. IA/ns/maureen 05/08/2019 6:43 AM [facility] Microscopic Description The microscopic examination substantiates the final diagnosis. No evidence of malignancy is noted in specimen A 05/08/2019 6:43 AM [facility] Disclaimer All histochemical and/or immunohistochemical results are interpreted with controls that demonstrate appropriate staining reactions before reporting results. Note on use of immunocytochemistry reagents: This test was developed and its performance characteristic determined by [facility], Department of Laboratory Medicine. It has not been cleared or approved by the U.S. Food and Drug Administration (FDA). The FDA has determined that such clearance or approval is not necessary. The test is used for clinical purpose. It should not be regarded as investigational or for research. This laboratory is certified to perform high complexity testing. 05/08/2019 6:43 AM [facility] Embedded Images 05/08/2019 6:43 AM [facility] Pathology/Cytology ENTIRE PLACENTA / Unknown 04/28/2019 4:40 AM CDT 04/29/2019 6:11 AM CDT Miscellaneous samples (specimen) OVARIAN CYST SPECIMEN / Unknown 04/28/2019 5:13 AM CDT 04/28/2019 7:18 AM CDT Rose Perez MD LAB - PATHOLOGY/CYTO LOGY ORDERABLES Performing Organization Address [facility]/State/ZIP Co de Phone Number [facility] [address] [place] [address] * Neuraxial Block (04/28/2019 4:17 AM CDT) [...] Units (04/28/2019 4:15 AM CDT) Product Code [id number] [facility] Unit Donor # [id number] [facility] ABO Donor Type O [facility] Rh Type Unit POS [facility] Unit Status Ret'd [facility] BLO OD BANK LAB ABO Rh Type Unit OPOS [facility] Donor Unit Expiration Date [facility] Blood Type Barcode 5100 [facility] Product Code [id number] [facility] Unit Donor # [id number] [facility] ABO Donor Type O [facility] Rh Type Unit POS [facility] BL OOD BANK LAB Unit Status Ret'd [facility] BLO OD [facility]ANK LAB ABO Rh Type Unit OPOS [facility] Donor Unit Expiration Date [facility] Blood Type Barcode 5100 [facility] Blood Bank BLOOD SPECIMEN / Unknown 04/28/2019 4:15 AM CDT Gloria Pritchard MD LAB - BLOOD BANK O TOM Performing Organization Address City/[facility]/ZIP Co de Phone Number [facility] [address] [phone] * TYPE + SCREEN PANEL (04/28/2019 1:11 AM CDT) ABO O 04/28/2019 2:43 AM CDT [facility] Rh Type Positive 04/28/2019 2:43 AM CDT [facility] Comment:History checked. Col lect retype. Antibody Screen Negative 04/28/2019 2:43 AM CDT [facility] Blood Bank BLOOD SPECIMEN / Unknown Venipuncture / Unknown 04/28/2019 1:11 AM CDT 04/28/2019 1:49 AM CDT Gloria Pritchard MD LAB - BLOOD BANK O TOM [facility] [address] [place] [address], [facility] [phone] * SONOGRAM - COMPLETE (04/06/2019 2:02 PM CDT) Only the most recent of3 resultswithin the time period is included. Anatomical Region Laterality Modality Other 04/06/2019 2:02 PM CDT Narrative 04/06/2019 8:26 PM CDT ? [facility] ? [facility] ?PHONE: ??FAX: Pat. Name: ?RUDDYRADHAShirley. No: ?[id number] Study Date: ?? 04/06/2019 ??2:02pm , Age: ? 1985, 33 Pregnancies: ?? 3, Para 2 Height: ? 63 in Weight: ? 244 lb LMP: ?06/06/2018 GA by LMP: ?43w3d GA by Base: ?? 35w1d ?? ALEJA: 05/10/2019 GA by US: ? 35w5d ?? ALEJA: 05/06/2019 GA Selected: ??35w1d (From Known E) ALEJA: ?05/10/2019 Referring MD: Wyatt Baptiste MD Director Of Bands: ??Vanna Valladares RDMS CPT4: ? 87134 BMI: ?43.22 Hist/Ind: ? Growth ?Large Left Adnexal Cyst ?Class III obesity ?GDM ?PCOS ?Prior C/S x2 MEASUREMENTS & AGE ? GROWTH EVALUATION Measurement ??GA ? Range ? Srce %for GA Ratios ----- ---- ------- BPD ??8.7 cm 35w1d (44w7u-67e3u) Hadl BPD 52% FL/BPD 0.79 (0.71 - 0.87) HC ??31.6 cm 35w3d (34s9g-93b3w) Hadl HC ??23% FL/AC ??0.21 (0.20 - 0.24) AC ??33.0 cm 37w0d (49i6r-39b6a) Hadl AC ??93% HC/AC ??0.96 (0.93 - 1.12) FL ?? 6.9 cm 35w2d (89p3q-19e5x) Hadl FL ??46% CI ? 0.77 (0.70 - 0.86) HL ?? 6.1 cm 35w4d (22g3x-80y4g) Palomo HL ??56% GA for sonogram 35w5d (64y4f-80e1w) ?? Weight Estimate: based on (HL,BPD,HC,AC,FL) Avg [...] <Electronic Signature> ??04/06/2019 08:26pm Deana Freeman MD [facility] ORDERABLES * CULTURE URINE REFLEXED (02/16/2019 2:05 PM CDT) Reflexive Urine Culture CULTURE INDICATED - RESULTS TO FOLLOW [facility] Comment: Test Performed at: [email or web address] [address] ??[phone] TAMARA HERNANDEZ DO,MPH 02/16/2019 2:05 PM CDT 02/16/2019 2:11 PM CDT Joanne Monterroso [employer] INST[employer]ER SUPERVIS[employer] INSTALLER LAB - MICROBIOL OGY ORDERABLES [facility] [address] [place] [address] * (ABNORMAL) URINALYSIS W/MICROSCOPIC REFLEX TO CULTURE (02/16/2019 2:05 PM CDT) Color UA DARK YELLOW YELLOW [facility] Appearance CLOUDY(A) CLEAR [facility] Specific [place] UA 1.020 1.001 - 1.035 [facility] pH [...] MUCOUS THREADS [facility] Comment: Test Performed at: [place] ??[address] TAMARA HERNANDEZ DO,MPH 02/16/2019 2:05 PM CDT 02/16/2019 2:11 PM CDT Joanne Monterroso STE[employer] INSTALLER SUPERVISOR[employer] INSTALLER LAB - URINALYSI S ORDERABLES [facility] [address] [place] [address] * (ABNORMAL) HEMOGLOBIN A1C (02/16/2019 2:05 PM [...] of diabetes for children. Test Performed at: [facility] [address] [place] ??[phone] TAMARA HERNANDEZ DO,MPH 02/16/2019 2:05 PM CDT 02/16/2019 2:11 PM CDT Joanne Loc [facility] - CHEMISTRY ORDERABLES Performing Organization Address [facility] Phone Number [facility] [address] [place] [address] * CULTURE URINE (02/16/2019 2:05 PM CDT) Culture [facility] Comment: ??CULTURE, URINE, ROUTINE ?MICRO NUMBER: ?[id number] ??TEST STATUS: ? FINAL ??SPECIMEN SOURCE: ?? URINE ??SPECIMEN QUALITY: ??ADEQUATE ??RESULT: ?Multiple organisms present, each less than 10,000 ? CFU/mL. These organisms, commonly found on ? external and internal genitalia, are considered ? to be colonizers. No further testing performed. Test Performed at: [id number] ??[phone] TAMARA HERNANDEZ DO,MPH 02/16/2019 2:05 PM CDT 02/16/2019 2:11 PM CDT Joanne Monterroso [facility] LAB - MICROBIOL OGY ORDERABLES Performing Organization Address [facility] de Phone Number [facility] [address] [place] [address] * (ABNORMAL) COMPREHENSIVE METABOLIC PANEL (02/16/2019 2:05 [...] 29 U/L [facility] Comment: Test Performed at: [email or web address] [address] ??[phone] TAMARA HERNANDEZ DO,MPH 02/16/2019 2:05 PM CDT 02/16/2019 2:11 PM CDT Joanne Monterroso STE[employer] INSTALLER SUPERVISOR[employer] INSTALLER LAB - CHEMISTRY ORDERABLES Performing Organization Address City/State/[facility] Co de Phone Number [facility] [address] [place] [address] * TSH (02/16/2019 2:05 PM CDT) TSH 1.55 mIU/L [facility] Comment: ?Reference Range ?> or = 20 Years ??0.40-4.50 ? Ranges ?First trimester ?0.26-2.66 ?Second trimester ?? 0.55-2.73 ?Third trimester ?0.43-2.91 Test Performed at: [facility] [address] [place] ??[phone] TAMARA HERNANDEZ DO,MPH 02/16/2019 2:05 PM CDT 02/16/2019 2:11 PM CDT Joanne Combsp[employer] LAB - CHEMISTRY ORDERABLES Performing Organization Address [facility] [place] [address] * T4 FREE (02/16/2019 2:05 PM CDT) T4 Free 1.1 0.8 - 1.8 ng/dL [facility] Comment: Test Performed at: [email or web address] [address] ??[phone] TAMARA HERNANDEZ DO,MPH 02/16/2019 2:05 PM CDT 02/16/2019 2:11 PM CDT Joanne Combspatrick [employer] LAB - CHEMISTRY ORDERABLES Performing Organization Address [facility] [place] [address] * (ABNORMAL) LIPID PROFILE (02/16/2019 2:05 PM [...] LDL-C. Andres PAUL et al. ZANDER. 2013;310(19): 3295-5566 (http://education.[employer]/faq/YZW658) CHOL/HDLC RATIO 6.4(H) <5.0 (calc) [facility] Non HDL Cholesterol 193(H) <130 mg/dL (calc) [facility] Comment: For patients with diabetes plus 1 major ASCVD risk factor, treating to a non-HDL-C goal of <100 mg/dL (LDL-C of <70 mg/dL) is considered a therapeutic option. Test Performed at: [facility] [address] [place], [place] ??[address] TAMARA HERNANDEZ DO,MPH 02/16/2019 2:05 PM CDT 02/16/2019 2:11 PM CDT Joanne Monterroso STE[employer] INSTALLER SUPERVISOR[employer] INSTALLER LAB - CHEMISTRY ORDERABLES Performing Organization Address City/State/[facility] Co de Phone Number [facility] [address] [place] [address] Care Teams Professor Computer Science Relationship Specialty Start Date End Date Wyatt Baptiste MD [address] [place] [address] PCP - General 04/20/19
--- OUTSIDE RECORDS SUMMARY | 2024-09-14 22:13 | XMS_ITS | Referral Summary ---
Author Organization [facility] Address [address] [place] [address] Care Team Providers Care Coating Supervisor Name Role Phone No, Physician Primary Care Provider [phone] Wyatt Baptiste MD Unavailable [phone] Allergies Active Allergy Reactions Criticality Noted Date [...] (02/16/2020): Added automatically from request for surgery [id number] Delivery by section 03/18/2019 Ovarian cyst affecting [...] it is not recommended by either the [employer] ([employer]) or the [employer] ([employer]) in [...] Plan of Treatment Not on file Insurance [email or web address] [place] Member Subscriber Plan / Payer (Ef fective 2020-Present) Name:Dmitri Fox Relation to Subscriber:Not on file Subscriber ID:Not on file Payer ID:[id number] (NAIC) Group ID:[id number] Type: OTHER Address: [address] [place] [address] [email or web address] Advance Directives For more information, please contact: [phone] * Full Code (Latest Code Status on File) Date Activated Date Inactivated Comments 03/06/2020 8:54 PM 03/08/2020 8:54 PM * Full Code Date Activated Date Inactivated Comments 02/20/2020 4:12 PM 02/21/2020 5:41 PM * Full Code Date Activated Date Inactivated Comments 02/07/2020 11:02 AM 02/08/2020 10:44 PM * Full Code Date Activated Date Inactivated Comments 02/06/2020 6:12 AM 02/06/2020 8:03 PM Care Teams Coating Supervisor Relationship Specialty Start Date End Date No, Physician PCP - General 02/05/20 Wyatt Baptiste MD Referring Physician Obstetrics and Gynecology 02/07/20
--- OUTSIDE RECORDS SUMMARY | 2024-09-14 22:13 | XMS_ITS | Clinical Summary ---
Author Organization [facility] Address [address] [place] [address] Care Team Providers Care Utilization Coordinator Name Role Phone No, Physician Primary Care Provider [phone] Wyatt Baptiste MD Unavailable Allergies Active Allergy Reactions Criticality Noted Date [...] (02/16/2020): Added automatically from request for surgery [id number] Delivery by section 03/18/2019 Ovarian cyst affecting [...] it is not recommended by either the [employer] (ACMG) or the [employer]stetric[employer] and Gynecologists (ACOG) in [...] Plan of Treatment Not on file Insurance [employer] [place] Member Subscriber Plan / Payer (Ef fective 2020-Present) Name:Dmitri Fox Relation to Subscriber:Not on file Subscriber ID:Not on file Payer ID:[id number] (NAIC) Group ID:[id number] Type: OTHER Address: [facility] [id number] [place] [address] [employer] Advance Directives For more information, please contact: [phone] * Full Code (Latest Code Status on File) Date Activated Date Inactivated Comments 03/06/2020 8:54 PM 03/08/2020 8:54 PM * Full Code Date Activated Date Inactivated Comments 02/20/2020 4:12 PM 02/21/2020 5:41 PM * Full Code Date Activated Date Inactivated Comments 02/07/2020 11:02 AM 02/08/2020 10:44 PM * Full Code Date Activated Date Inactivated Comments 02/06/2020 6:12 AM 02/06/2020 8:03 PM Care Teams Utilization Coordinator Relationship Specialty Start Date End Date No, Physician PCP - General 02/05/20 Wyatt Baptiste MD Referring Physician Obstetrics and Gynecology 02/07/20
--- OUTSIDE RECORDS SUMMARY | 2024-09-14 22:13 | XMS_ITS | Clinical Summary ---
Author Organization [facility] [employer] Address [address] [address] Care Team Providers Care Mule Developer Name Role Phone Wyatt Baptiste MD Primary Care Provider [phone] Source Comments [facility] [employer]),non-owned Affiliates and Associated Physician Practices is amultiple site organization consisting of ambulatory clinics and hospital sitesin [place], [place], [place] and [place]. This disclosure is being madepursuant to the Care Everywhere program and may not contain all information available regarding this patient. Last updated 18.[facility] [employer] Allergies No known active allergies Medications * [...] it is not recommended by either the [employer] and [employer] (ACMG) or the [place] [employer]st[employer] and Gynecologists (ACOG) in [...] Per record, sent with orders for repeat [facility] 02/10 Laboratory summary 02/16/2019) ALT 36 [...] effects experienced previously Close contact with our early childhood special educator to optimize glycemic control on [...] from birthweights. I advised Radha that the [place] [employer] and [employer]ne[employer] recommends delivery [...] post prandial <130 Close contact with our early childhood special educator to optimize glycemic control on [...] 12:45 AM 05/01/2019 4:52 PM Care Teams Mule Developer Relationship Specialty [place] [address] [place] [phone] PCP - General 04/20/19
--- OUTSIDE RECORDS SUMMARY | 2024-09-14 22:13 | XMS_ITS | Referral Summary ---
Author Organization [facility] [employer] Address [address] [facility] [place] [address] Care Team Providers Care Restaurant Crew Name Role Phone Wyatt Baptiste MD Primary Care Provider [phone] Source Comments [facility] [employer],non-owned Affiliates and Associated Physician Practices is amultiple site organization consisting of ambulatory clinics and hospital sitesin [place], [place], [place] and [place]. This disclosure is being madepursuant to the Care Everywhere program and may not contain all information available regarding this patient. Last updated 18.[facility] [employer] Allergies No known active allergies Medications * [...] Date Diagnosed Date Ovarian cyst affecting pregn ulkas in third trimester, antepartum 03/10/2019 Assessment & [...] it is not recommended by either the [employer] (ACMG) or the [employer]etrics and [employer]necologists (ACOG) in [...] Per record, sent with orders for repeat [facility] 02/10 Laboratory summary 02/16/2019) ALT 36 [...] effects experienced previously Close contact with our wellness educator to optimize glycemic control on at [...] from birthweights. I advised Radha that the [employer] recommends delivery [...] post prandial <130 Close contact with our wellness educator to optimize glycemic control on at [...] 12:45 AM 05/01/2019 4:52 PM Care Teams Restaurant Crew Relationship Specialty Start Date End Date Wyatt Baptiste MD [address] [place] [phone] PCP - General 04/20/19
[2024-09-14 22:43] LABS: Strep Group A RT-PCR NOT DETECTED (Negative)
[2024-09-14 22:55] LABS: Influenza A QL RT-PCR Positive (Negative); Influenza B QL RT-PCR Negative (Negative); RSV RNA, RT-PCR Negative (Negative); SARS-CoV-2 RNA PCR Negative (Negative)
--- NOTE | 2024-09-14 23:23 | ED.SOB ---
HPI - SOB/Dyspnea General Chief Complaint: Shortness of Breath/Dyspnea Stated Complaint: feel like i swallowed lava and hard to breathe Time Seen by Provider: 09/14/24 22:07 History of Present Illness HPI Narrative: 39-year-old obese female with no other past medical history presenting to the emergency department for evaluation of difficulty in breathing and burning chest discomfort, vomiting, diarrhea and URI symptoms. Patient states she has had sick contacts with family members with similar symptoms. Did not receive her influenza vaccine this year. Was otherwise in her normal state of health. Not taking any medications presently. Did not take anything prior to arrival as she was vomiting. Is able tolerate p.o. intake and ice chips and water. Related Data Allergies Allergy/AdvReac Type Severity Reaction Status Date / Time No Known Allergies Allergy Verified 09/14/24 19:57 Review of Systems Review of Systems: As reviewed above in HPI PMFSH Past Medical History Medical History Patient denies significant medical history Social History Social History Smoking status: Never smoker Gender identity (if verbalized by the patient): Female Exam Narrative: GENERAL: Uncomfortable appearing but not any acute distress, answering all questions appropriately, well-nourished and obese. HEAD: [Normocephalic, atraumatic.] EYES: [PERRLA and EOMI.] ENT: Nares clear, no rhinorrhea or epistaxis. Mucous membranes moist. NECK: Supple. CHEST: [Clear to auscultation. No respiratory distress.] HEART: [Regular rate and rhythm]. No murmur heard. [Normal peripheral pulses.] ABDOMEN: [Soft, nondistended], [nontender], [No rigidity or guarding] EXTREMITIES: Normal range of motion. [No edema.] SKIN: Warm, dry, no rash. NEURO: [No focal deficits]. Alert and oriented [x3.] PSYCH: [Normal mood and affect.] Course Vital Signs Vital signs: Vital Signs Temperature 37.7 C H 09/14/24 19:54 Pulse Rate 94 09/14/24 19:54 Respiratory Rate 20 09/14/24 19:54 Blood Pressure 145/92 H 09/14/24 19:54 Pulse Oximetry 99 09/14/24 19:54 Temperature 36.8 C 09/15/24 01:12 Pulse Rate 71 09/15/24 01:12 Respiratory Rate 18 09/15/24 01:12 Blood Pressure 132/75 09/15/24 01:12 Pulse Oximetry 99 09/15/24 01:12 Oxygen Delivery Room Air 09/14/24 22:04 MDM - SOB/Dyspnea MDM Narrative Medical decision making narrative: 39-year-old female presenting with upper respiratory infection symptoms in addition to burning epigastric and esophageal pain consistent with GERD. She is obese. Patient is not in any respiratory distress, borderline febrile with 37.9? temperature. Normal blood pressure and heart rate. Patient is not any acute distress, has a soft nontender nondistended abdomen. Imaging studies were obtained including a chest x-ray, EKG and COVID fluid RSV swabs were obtained. Patient was treated symptomatically with Maalox, famotidine and given a Tylenol. Her swab came back positive for influenza. Her EKG was non concerning or ischemic, chest x-ray without any pneumonia. Patient is safe and stable for discharge home with symptomatic controlling medications and instructions on follow-up and return precautions. Medical Records Attestation: I reviewed the patient's medical records. Lab Data Attestation: I reviewed the patient's lab results. Labs: Lab Results 09/14/24 Range/Units 22:09 Influenza A (RT-PCR) Positive A (Negative) Influenza B (RT-PCR) Negative (Negative) RSV (RT-PCR) Negative (Negative) SARS-CoV-2 RNA (RT-PCR) Negative (Negative) Group A Strep (PCR) Not detected (Negative) Imaging Data Attestation: I personally reviewed and interpreted this imaging study as follows: My impression: Impressions Chest X-Ray 09/14/24 23:27 IMPRESSION: 1. No acute cardiopulmonary disease. Discharge Plan Discharge Clinical Impression: Influenza A, Burning chest pain Patient Disposition: Home, Self-Care Condition: Stable Instructions: Antibiotic Form, Influenza (DC), Gastroesophageal Reflux in Infants (ED) Additional Instructions: You tested positive for influenza A which does explains her symptoms. Your chest x-ray shows no concerning findings, no pneumonia, no heart disease. We will send you home with some symptomatic control medications and we need to follow-up with your regular doctor on outpatient basis. Return with any new or worsening concerns. Take Tylenol for analgesia and fever control, Zofran for nausea control, [id number] flu medications as needed. Pepcid and maalox for burning pain. Patient Language: Estonian Prescriptions: New famotidine [Pepcid] 20 mg tablet 20 mg PO BID Qty: 20 0RF ondansetron 4 mg tablet,disintegrating 4 mg PO Q8H PRN (Reason: nausea and vomiting) Qty: 10 0RF acetaminophen [Tylenol Extra Strength] 500 mg tablet 1,000 mg PO TID PRN (Reason: pain) Qty: 30 0RF alum-mag hydroxide-simeth [Mag-Al Plus] 200-200-20 mg/5 mL suspension 15 ml PO QID PRN (Reason: dyspepsia) Qty: 3000 0RF Rx Instructions: administer between meals and at bedtime Follow-up/Referrals: PHYSICIAN,OCCUPATIONAL THERAPIST AIDE [Primary Care Provider] - Stand Alone Forms: Work/School Release IP Time of Disposition: 01:07
[2024-09-14] MEDS: ACETAMINOPHEN 500 MG TABLET 1000 MG PO (23:28)
[2024-09-14] MEDS: FAMOTIDINE 20 MG TABLET PO (23:28)
[2024-09-14] MEDS: MAG HYDROX/AL HYDROX/SIMETH 30 ML UDC PO (23:29)
[2024-09-15 01:12] VITALS: BP 132/75; PULSE 71; RESP 18; TEMP 36.8; O2SAT 99
== END 2024-09-15 01:13 | disposition home or self-care (01) ==
PROVIDERS: Emergency Provider Student in an Organized Health Care Education/Training Program
DX: J10.1 Influenza due to other identified influenza virus with other respiratory manifestations (principal); R07.89 Other chest pain; Z20.822 Contact with and (suspected) exposure to COVID-19
CPT/HCPCS: 71045; 87637; 87651; 93005; 99283; A9270

== ENCOUNTER 2025-04-27 17:38 | Emergency (ER) | payer BC, SELFPAY ==
--- NOTE | ~2025-04-27 | CT_ITS ---
EXAMINATION: CT abdomen pelvis w con DATE: 04/27/2025 19:10 INDICATION: Lower abdomen pain TECHNIQUE: Computed tomography (CT) of the abdomen and pelvis was performed with intravenous contrast. The dose-length product was 733.10 mGy-cm. Automated exposure control and iterative reconstruction technique were employed. COMPARISON: 02/03/2020. FINDINGS: Lung bases unremarkable. Heart size normal. No significant pleural or pericardial effusion. Fatty infiltration of the liver. There is hepatomegaly. The spleen, pancreas, adrenal glands and left kidney are unremarkable. There is a 2 mm hypodensity of the right kidney, most likely benign cysts. Gallbladder is present. Nonobstructive bowel gas pattern. No abnormal pelvic masses or fluid collections. No acute osseous abnormality. IMPRESSION: 1. Hepatomegaly with fatty infiltration of the liver. Reviewed, dictated and finalized at location O.
--- OUTSIDE RECORDS SUMMARY | 2025-04-27 17:40 | XMS_ITS | Clinical Summary ---
Author Organization [facility] Address [address] [place] [address] Care Team Providers Care Puff Iron Operator Name Role Phone Wyatt Baptiste MD Primary Care Provider [phone] Source Comments [facility],non-owned Affiliates and Associated Physician Practices is amultiple site organization consisting of ambulatory clinics and hospital sitesin [place], [place] and [place]. This disclosure is being madepursuant to the Care Everywhere program and may not contain all information available regarding this patient. Last updated 18.[facility] Allergies No known active allergies Medications * This document contains information received from the source organization and may not represent a complete record from that organization. * Be aware that medications may not be up to date on this document. Alwaysverify current medications with the patient. Vit-Fe Fumarate-FA ( PO) Active raNITIdine (ZANTAC) 150 MG tablet Take 150 mg by mouth 2 times daily Active iron polysaccharides (NIFEREX 150) 150 MG capsule Take 1 capsule by mouth 2 times daily 60 capsule 3 9 Active oxyCODONE-acetaminop hen (PERCOCET) 5-325 MG tablet Take 1 tablet by mouth every 6 hours as needed for Pain 20 tablet 9 Active ibuprofen (MOTRIN) 600 MG tablet Take 1 tablet by mouth every 6 hours as needed for Pain 40 tablet 1 9 Active docusate sodium (COLACE) 100 MG capsule Take 1 capsule by mouth 2 times daily 60 capsule 1 9 Active Active Problems Problem Noted Date Diagnosed [...] it is not recommended by either the [employer] and [employer] (ACMG) or the [employer] Obstetrics and Gynecologists (ACOG) in [...] plan to eat Perform blood glucose measurements 7 times daily, and send blood glucose logs and [...] at 6 week visit Assessment & Plan (03/10/2019 5:33 PM CDT): [...] add physical activity Perform blood glucose measurements 7 times daily [...] glucose control. Last estimated weight overall appropriate. Plan: Maternal- Medicine comanage in gestational diabetes Increase Levemir to 22/22 Add meal time insulin of 8 units [...] comanage in gestational diabetes Increase Levemir to 20/16 Perform blood glucose measurements 7 times daily [...] effects experienced previously Close contact with our life educator to optimize glycemic control on at [...] 205, 211 Gestational Diabetes I counseled Radha Fox regarding the adverse outcomes associated with inadequately [...] from birthweights. I advised Radha that the [place] [employer] recommends delivery [...] Long-term diabetes surveillance. The risk of Radha Fox developing diabetes outside of over the next [...] post prandial <130 Close contact with our life educator to optimize glycemic control on at [...] U/S giving ALEJA of 05/10/19 O+/NI/-/-/HIV neg 13/39/328 GC/CT neg/neg UDS neg PCOS (polycystic ovarian [...] and that active weight loss is discouraged. We discussed the metabolic syndrome, in particular [...] Pyelo and renal stone precautions given Immunizations Immunization Administration Dates Next Due MMR 05/01/2019,05/01/2019(Deferred: - [...] 0.6 oz pur e alcohol) Not during Comments No Sex and Gender Information Value Date Recorded Sex Assigned at Not on file Legal Sex Female 5:47 PM CDT Gender Identity Not on file Sexual Orientation Not on file Last Filed Vital Signs Vital Sign Reading Time Taken Comments Blood Pressure 130/82 05/01/2019 12:20 PM CDT Pulse 80 05/01/2019 12:20 PM CDT Temperature 36.6 C (97.8 F) 05/01/2019 12:20 PM CDT Respiratory Rate 18 05/01/2019 12:20 PM CDT [...] of 3 - 19+ 3-dose series) 2005 HPV VACCINE (1 - 3-dose SCDM series) 2013 DEPRESSION SCREENING 08/18/2024 COVID-19 VACCINE (1 - 2023-2 5 season) 2025 INFLUENZA VACCINE (#1) 2025 ZOSTER VACCINE (1 of 2) 2036 HIB VACCINE Aged Out No longer eligi ble based on patient's age to complete this topic MENINGOCOCCAL (Group B) VACC INE SHARED DECISION-MAKING Aged Out No longer eligibl e based on patient's age to complete this topic MENINGOCOCCAL GROUPS A/C/Y/W VACCINE Aged Out No longer eligible b ased on patient's age to complete this topic PNEUMOCOCCAL VACCINE Aged Out No long er eligible based on patient's age to complete this topic Insurance [facility] Advance Directives * Full Code (Latest Code Status on File) Date Activated Date Inactivated Comments 04/28/2019 12:45 AM 05/01/2019 4:52 PM Care Teams Puff Iron Operator Relationship Specialty Start [place] [address] [place] [id number] PCP - General 04/20/19
--- OUTSIDE RECORDS SUMMARY | 2025-04-27 17:40 | XMS_ITS | Clinical Summary ---
Author Organization [facility] Address [address] [place] [address] Care Team Providers Care Construction Site Manager Name Role Phone No, Physician Primary Care Provider [phone] Wyatt Baptiste MD Unavailable [phone] Allergies Active Allergy Reactions Criticality Noted Date [...] (02/16/2020): Added automatically from request for surgery [id number] Delivery by section 03/18/2019 Ovarian cyst affecting [...] it is not recommended by either the [employer] (ACMG) or the [place] [employer] and Gynecologists (ACOG) in [...] delivery with review at 6 week visit Late care affecting 9 Supervision of high-risk of sis mora 02/09/2019 Overview (03/24/2020): Approximate LMP 06/06/2018--ALEJA 03/13/2019; not consistent with 21w5d U/S giving ALEJA of 05/10/19 O+/NI/-/-/HIV neg / GC/CT neg/neg UDS neg 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 Candidiasis of vagina 10/08/2018 Tobacco dependence syndrome 09/18/2017 Obesity 08/28/2017 Overview (03/24/2020): TSH 1.55 /free T4 1.1 (02/16/19) Last Assessment & Plan: Would benefit from and weight reduction Immunizations Immunization Administration Dates Next Due Influenza, Quadrivalent, Spl [...] 90 03/24/2020 9:37 AM CDT Temperature 36.2 C (97.2 F) 03/24/2020 9:37 AM CDT Respiratory Rate 14 03/24/2020 9:37 AM CDT Oxygen Saturation 97% 03/24/2020 9:37 AM CDT Inhaled Oxygen Concentration - - Weight 115 kg (253 lb 8 oz) 03/24/2020 9:37 AM C DT Height 152.4 cm (5') 03/24/2020 9:37 AM CDT Body Mass Index 49.51 03/24/2020 9:37 AM CDT Plan of Treatment Not on file Insurance [employer] [place] Member Subscriber Plan / Payer (Ef fective 2020-Present) Name:Dmitri Fox Relation to Subscriber:Not on file Subscriber ID:Not on file Payer ID:[id number] (NAIC) Group ID:[id number] Type: OTHER Address: [address] [place] [address] [employer] Advance Directives For more information, please contact: [phone] * Full Code (Latest Code Status on File) Date Activated Date Inactivated Comments 03/06/2020 8:54 PM 03/08/2020 8:54 PM * Full Code Date Activated Date Inactivated Comments 02/20/2020 4:12 PM 02/21/2020 5:41 PM * Full Code Date Activated Date Inactivated Comments 02/07/2020 11:02 AM 02/08/2020 10:44 PM * Full Code Date Activated Date Inactivated Comments 02/06/2020 6:12 AM 02/06/2020 8:03 PM Care Teams Construction Site Manager Relationship Specialty Start Date End Date No, Physician PCP - General 02/05/20 Wyatt Baptiste MD Referring Physician Obstetrics and Gynecology 02/07/20
[2025-04-27 17:55] VITALS: BP 131/86; PULSE 78; RESP 16; TEMP 36.6; O2SAT 100
--- NOTE | 2025-04-27 18:01 | ED.ABDPAIN ---
HPI - Abdominal Pain General Chief Complaint: Abdominal Pain Stated Complaint: ABD PAIN X TD Focused HPI: 39-year-old female presents to the ER complaining of or abdominal pain it started today. Patient states her in a higher lower abdomen is painful. Patient denies any fevers body aches, chills, nausea vomiting, diarrhea, constipation, urinary symptoms, vaginal bleeding, vaginal discharge, or any other symptoms. Patient reports she has had history of a total hysterectomy for history of PCOS. Patient denies any significant past medical history. GENERAL: Well-appearing, well-nourished, and in no acute distress. HEAD: Normocephalic, atraumatic. CHEST: Clear to auscultation. ?No respiratory distress. HEART: Regular rate and rhythm.? NEURO: ?Alert and oriented x3. GI: Abdomen round, soft, nondistended. Lower abdomen is tender throughout. No guarding or rigidity. Bowel sounds are active. No rebound tenderness. Patient screened in triage and initial orders placed.? ?Additional care and disposition to be based upon?diagnostic testing and treatment. Related Data Allergies Allergy/AdvReac Type Severity Reaction Status Date / Time No Known Allergies Allergy Verified 04/27/25 17:39 PMFSH Past Medical History Medical History Patient denies significant medical history Social History Social History Smoking status: Never smoker Gender identity (if verbalized by the patient): Female Course Vital Signs Vital signs: Vital Signs Temperature 97.8 F 04/27/25 17:55 Pulse Rate 78 04/27/25 17:55 Respiratory Rate 16 04/27/25 17:55 Blood Pressure 131/86 04/27/25 17:55 Pulse Oximetry 100 04/27/25 17:55 Oxygen Delivery Room Air 04/27/25 17:55 Temperature 97.8 F 04/27/25 17:55 Pulse Rate 78 04/27/25 17:55 Respiratory Rate 16 04/27/25 17:55 Blood Pressure 131/86 04/27/25 17:55 Pulse Oximetry 100 04/27/25 17:55 Oxygen Delivery Room Air 04/27/25 17:55 Discharge Plan Discharge Instructions: Antibiotic Form Patient Language: French Prescriptions: No Action famotidine [Pepcid] 20 mg tablet 20 mg PO BID Qty: 20 0RF ondansetron 4 mg tablet,disintegrating 4 mg PO Q8H PRN (Reason: nausea and vomiting) Qty: 10 0RF acetaminophen [Tylenol Extra Strength] 500 mg tablet 1,000 mg PO TID PRN (Reason: pain) Qty: 30 0RF alum-mag hydroxide-simeth [Mag-Al Plus] 200-200-20 mg/5 mL suspension 15 ml PO QID PRN (Reason: dyspepsia) Qty: 3000 0RF Rx Instructions: administer between meals and at bedtime Follow-up/Referrals: PHYSICIAN,OPERATOR GROUND BASED AIR DEFENCE [Primary Care Provider, Internal Medicine]
[2025-04-27 18:26] LABS: Hematocrit 45.5 % (37.0-47.0); Hemoglobin 15.9 g/dL (12.0-15.0); Immature Granulocyte Percent A 0.4 % (0-0.5); Lymphocytes Absolute Auto 4.16 K/mm3 (0.9-3.2); Mean Corpuscular HGB Conc 34.9 g/dl (32-36); Mean Corpuscular Hemoglobin 30.6 pg (26-34); Mean Corpuscular Volume 87.7 fl (80-100); Nucleated Red Blood Cells Absolute Auto 0.000 K/mm3 (0.0-0.012); Nucleated Red Blood Cells Perc 0.0 % (0.0-0.2); Platelet Count Result 242 k/mm3 (150-375); Red Blood Count 5.19 M/mm3 (4.2-5.4); White Blood Count 10.2 K/mm3 (4.5-10.0)
[2025-04-27 18:39] LABS: Alanine Aminotransferase 59 U/L (6-35); Albumin Level 4.5 g/dL (3.5-5.1); Alkaline Phosphatase 109 U/L (38-126); Anion Gap 10 mmol/L (4-12); Aspartate Amino Transferase 31 U/L (14-36); Bilirubin,Total 0.4 mg/dL (0.2-1.3); Blood Urea Nitrogen 11 mg/dL (7-17); Calcium 9.4 mg/dL (8.4-10.2); Carbon Dioxide 25 mmol/L (22-30); Chloride 103 mmol/L (98-107); Estimated Glomerular Filt Rate > 60; Glucose 295 mg/dL (65-110); Lipase 260 U/L (23-300); Potassium 3.8 mmol/L (3.4-5.0); Sodium 138 mmol/L (137-145); Total Protein 8.2 g/dL (6.3-8.2)
[2025-04-27] MEDS: LACTATED RINGERS 1,000 ML 999 ML IV CONT (19:36)
[2025-04-27] MEDS: HYDROmorphone HCL INJ (*CRX) 1 MG/ML SYR 0.5 MG IV PUSH (19:37)
[2025-04-27] MEDS: KETOROLAC 15 MG/ML VIAL (*BKC) IV PUSH (19:37)
[2025-04-27] MEDS: DICYCLOMINE HCL INJ 20 MG/2 ML VIAL IM (19:37)
[2025-04-27 19:38] LABS: Add Urine Microscopic? NO; Appearance Urine Clear (Clear); Glucose Urine UA 3+ mg/dL (Negative); Leukocyte Esterase Ur Negative LEU/UL (Negative); Nitrate Urine Negative (Negative); Specific Grav Ur > 1.045 (1.001-1.035)
--- OUTSIDE RECORDS SUMMARY | 2025-04-27 19:41 | XMS_ITS | Clinical Summary ---
Author Organization [facility] Address [address] [place] [address] Care Team Providers Care Cross Country Coach Name Role Phone No, Physician Primary Care Provider [phone] Wyatt Baptiste MD Unavailable [phone] Allergies Active Allergy Reactions Criticality Noted Date [...] (02/16/2020): Added automatically from request for surgery [id number] Delivery by section 03/18/2019 Ovarian cyst affecting [...] it is not recommended by either the [place] [employer] and [employer] (ACMG) or the [place] [employer] and Gynecologists (ACOG) in [...] Plan of Treatment Not on file Insurance [employer] [place] Member Subscriber Plan / Payer (Ef fective 2020-Present) Name:Dmitri Fox Relation to Subscriber:Not on file Subscriber ID:Not on file Payer ID:[id number] (NAIC) Group ID:[id number] Type: OTHER Address: [address] [place] [address] [employer] Advance Directives For more information, please contact: [phone] * Full Code (Latest Code Status on File) Date Activated Date Inactivated Comments 03/06/2020 8:54 PM 03/08/2020 8:54 PM * Full Code Date Activated Date Inactivated Comments 02/20/2020 4:12 PM 02/21/2020 5:41 PM * Full Code Date Activated Date Inactivated Comments 02/07/2020 11:02 AM 02/08/2020 10:44 PM * Full Code Date Activated Date Inactivated Comments 02/06/2020 6:12 AM 02/06/2020 8:03 PM Care Teams Cross Country Coach Relationship Specialty Start Date End Date No, Physician PCP - General 02/05/20 Wyatt Baptiste MD Referring Physician Obstetrics and Gynecology 02/07/20
--- NOTE | 2025-04-27 20:49 | ED.GENADULT ---
HPI - General Adult General Chief complaint: Abdominal Pain Stated complaint: ABD PAIN X TD Time Seen by Provider: 04/27/25 18:37 History of Present Illness HPI narrative: Focused HPI: 39-year-old female presents to the ER complaining of or abdominal pain it started today. Patient states her in a higher lower abdomen is painful. Patient denies any fevers body aches, chills, nausea vomiting, diarrhea, constipation, urinary symptoms, vaginal bleeding, vaginal discharge, or any other symptoms. Patient reports she has had history of a total hysterectomy for history of PCOS. Patient denies any significant past medical history. GENERAL: Well-appearing, well-nourished, and in no acute distress. HEAD: Normocephalic, atraumatic. CHEST: Clear to auscultation. ?No respiratory distress. HEART: Regular rate and rhythm.? NEURO: ?Alert and oriented x3. GI: Abdomen round, soft, nondistended. Lower abdomen is tender throughout. No guarding or rigidity. Bowel sounds are active. No rebound tenderness. Patient screened in triage and initial orders placed.? ?Additional care and disposition to be based upon?diagnostic testing and treatment. Related Data Allergies Allergy/AdvReac Type Severity Reaction Status Date / Time No Known Allergies Allergy Verified 04/27/25 17:39 PMFSH Past Medical History Medical History Patient denies significant medical history Social History Social History Smoking status: Never smoker Gender identity (if verbalized by the patient): Female Exam Narrative: APPEARANCE: No apparent distress. Head: atraumatic. EYES: EOMI, NOSE: Atraumatic NECK: Trachea midline RESPIRATORY: No increased rate of breathing clear to auscultation CARDIOVASCULAR: RRR, ABDOMINAL: Obese, tenderness to palpation in the lower quadrants although it is distractible, no guarding rebound no CVA tenderness MUSCULOSKELETAl: No obvious deformities NEURO: Alert. Moving 4/4 extremities SKIN:: Warm, dry. Normal color PSYCHIATRIC: Normal affect Course Vital Signs Vital signs: Vital Signs Temperature 97.8 F 04/27/25 17:55 Pulse Rate 78 04/27/25 17:55 Respiratory Rate 16 04/27/25 17:55 Blood Pressure 131/86 04/27/25 17:55 Pulse Oximetry 100 04/27/25 17:55 Oxygen Delivery Room Air 04/27/25 17:55 Temperature 97.8 F 04/27/25 17:55 Pulse Rate 78 04/27/25 17:55 Respiratory Rate 16 04/27/25 17:55 Blood Pressure 131/86 04/27/25 17:55 Pulse Oximetry 100 04/27/25 17:55 Oxygen Delivery Room Air 04/27/25 17:55 Medical Decision Making [facility] Narrative Medical decision making narrative: -Course: 39-year-old female presenting with lower abdominal pain. Patient has already had a total abdominal hysterectomy with oophorectomy. Her vital signs are stable. She has some tenderness in the lower abdominal/pelvic region although she is distractible. She has had a normal bowel movement earlier today so no concern for small bowel obstruction. Her laboratory studies are unremarkable. Her CT abdomen pelvis did not reveal any causative findings. She was treated symptomatically with improvement. Pain is now gone at rest although she is having occasional spasms. Discussed admission versus discharge the patient like to go home as it is her daughter's birthday democrat tomorrow. She will be discharged with pain medication, antispasmodics. She has been given return precautions if she develops fevers severe abdominal pain or any new symptoms which may help elucidate the cause of her pain. Patient her her agreeable with this plan. -DDX includes but is not limited to: Colonic spasm, colitis, diverticulitis, appendicitis urinary tract infection endometriosis Vital Signs Vital Signs: Vital Signs Temperature 97.8 F 04/27/25 17:55 Pulse Rate 78 04/27/25 17:55 Respiratory Rate 16 04/27/25 17:55 Blood Pressure 131/86 04/27/25 17:55 Pulse Oximetry 100 04/27/25 17:55 Oxygen Delivery Room Air 04/27/25 17:55 Temperature 97.8 F 04/27/25 17:55 Pulse Rate 78 04/27/25 17:55 Respiratory Rate 16 04/27/25 17:55 Blood Pressure 131/86 04/27/25 17:55 Pulse Oximetry 100 04/27/25 17:55 Oxygen Delivery Room Air 04/27/25 17:55 Lab Data 04/27/25 18:18 04/27/25 18:18 Labs: Lab Results 04/27/25 04/27/25 Range/Units 18:18 18:58 WBC 10.2 H (4.5-10.0) K/mm3 RBC 5.19 (4.2-5.4) M/mm3 Hgb 15.9 H D (12.0-15.0) g/dL Hct 45.5 (37.0-47.0) % MCV 87.7 (80-100) fl MCH 30.6 (26-34) pg MCHC 34.9 (32-36) g/dl RDW 12.2 (11.5-14.5) % Plt Count 242 (150-375) k/mm3 MPV 11.2 H (7.4-10.4) fl Immature Gran % (Auto) 0.4 (0-0.5) % Neut % (Auto) 47.1 (45.5-73.1) % Lymph % (Auto) 40.8 (18.3-44.2) % [place] % (Auto) 5.9 (2.6-8.5) % Eos % (Auto) 4.8 H (0-4.4) % Baso % (Auto) 1.0 (0.2-1.2) % Lymph # (Auto) 4.16 H (0.9-3.2) K/mm3 [place] # (Auto) 0.6 (0.1-0.6) K/mm3 Eos # (Auto) 0.5 H (0-0.3) K/mm3 Baso # (Auto) 0.1 (0.0-0.1) K/mm3 Abs Immat Gran (auto) 0.04 H (0.00-0.031) K/mm3 Absolute Neuts (auto) 4.8 (1.3-6.7) K/mm3 Absolute Nucleated RBC 0.000 (0.0-0.012) K/mm3 Nucleated RBC % 0.0 (0.0-0.2) % Sodium 138 (137-145) mmol/L Potassium 3.8 (3.4-5.0) mmol/L Chloride 103 (98-107) mmol/L Carbon Dioxide 25 (22-30) mmol/L Anion Gap 10 (4-12) mmol/L BUN 11 (7-17) mg/dL Creatinine 0.48 L (0.7-1.0) mg/dL Estim Creat Clear Calc Not Reportable Estimated GFR > 60 (59 - ) Glucose 295 H (65-110) mg/dL Calcium 9.4 (8.4-10.2) mg/dL Total Bilirubin 0.4 (0.2-1.3) mg/dL AST 31 (14-36) U/L ALT 59 H (6-35) U/L Alkaline Phosphatase 109 (38-126) U/L Total Protein 8.2 (6.3-8.2) g/dL Albumin 4.5 (3.5-5.1) g/dL Lipase 260 (23-300) U/L Urine Color Yellow (Yellow) Urine Appearance Clear (Clear) Urine pH 6.0 (5.0-9.0) Ur Specific [place] > 1.045 H (1.001-1.035) Urine Protein Negative (Negative) mg/dL Urine Glucose (UA) 3+ H (Negative) mg/dL Urine Ketones Trace H (Negative) mg/dL Ur Blood (Man) Negative (Negative) Urine Nitrate Negative (Negative) Urine Bilirubin Negative (Negative) Urine Urobilinogen 1.0 (<2.0) mg/dL Leukocyte Esterase Rfl Negative (Negative) ABDIAZIZ/UL Discharge Plan Discharge Clinical Impression: Abdominal pain Patient Disposition: Home Condition: Stable Instructions: Antibiotic Form, Abdominal Pain (ED) Additional Instructions: You were seen in the emergency for abdominal pain. Your laboratory studies and CT abdomen pelvis did not reveal a clear cause of your pain. Please make sure you are drinking plenty of fluids. Use Motrin and Tylenol for pain, oxycodone for breakthrough pain, and Bentyl for spasms. If you develop fevers severe abdominal pain or any new symptoms please return to the ED for re-evaluation. Patient Language: [place]ian Prescriptions: New acetaminophen 500 mg tablet 1,000 mg PO TID PRN (Reason: eula) 7 Days Qty: 42 0RF ibuprofen 800 mg tablet 800 mg PO TID PRN (Reason: pain) 7 Days Qty: 21 0RF dicyclomine 20 mg tablet 20 mg PO BID Qty: 30 0RF oxycodone 5 mg tablet 5 mg PO Q4H PRN (Reason: pain) Qty: 6 0RF No Action famotidine [Pepcid] 20 mg tablet 20 mg PO BID Qty: 20 0RF ondansetron 4 mg tablet,disintegrating 4 mg PO Q8H PRN (Reason: nausea and vomiting) Qty: 10 0RF acetaminophen [Tylenol Extra Strength] 500 mg tablet 1,000 mg PO TID PRN (Reason: pain) Qty: 30 0RF alum-mag hydroxide-simeth [Mag-Al Plus] 200-200-20 mg/5 mL suspension 15 ml PO QID PRN (Reason: dyspepsia) Qty: 3000 0RF Rx Instructions: administer between meals and at bedtime Follow-up/Referrals: PHYSICIAN,FLEXOGRAPHIC PRESS PLATE SETTER [Primary Care Provider, Internal Medicine]
== END 2025-04-27 21:25 | disposition home or self-care (01) ==
PROVIDERS: Emergency Provider Emergency Medicine
DX: R10.30 Lower abdominal pain, unspecified (principal); Z90.710 Acquired absence of both cervix and uterus; K76.0 Fatty (change of) liver, not elsewhere classified
CPT/HCPCS: 36415; 74177; 80053; 81003; 83690; 85025; 96361; 96372; 96374; 96375; 99284; J0500; J1171; J1885; J7120; Q9967

== ENCOUNTER 2025-07-05 07:57 | Outpatient (CLI) | payer BC, SELFPAY ==
--- NOTE | ~2025-07-05 | XR_ITS ---
EXAMINATION: XR knee LT min 4V, 07/05/2025 8:20 BASKET MAKER HISTORY: rt and lt knee pain COMPARISON: No comparisons available. Findings: No acute fracture or malalignment. No significant degenerative changes. Soft tissues unremarkable. Impression: No acute fracture or malalignment. Reviewed, dictated and finalized at location P. ET MAKER Impression: No acute fracture or malalignment.
--- NOTE | ~2025-07-05 | XR_ITS ---
EXAMINATION: XR chest 2V, 07/05/2025 8:20 ARTILLERY SPECIALIST HISTORY: fd, SMOKER COMPARISON: No comparisons available. Technique: 2 views obtained. Findings: The lungs are clear, no effusion. No pneumothorax. Heart is normal size. Mediastinal and hilar contours are within normal limits. Bony thorax no acute abnormality. Impression: No acute cardiopulmonary abnormality. Reviewed, dictated and finalized at location P. LLERY SPECIALIST Impression: No acute cardiopulmonary abnormality.
--- NOTE | ~2025-07-05 | XR_ITS ---
EXAMINATION: XR knee RT min 4V, 07/05/2025 8:20 TALK SHOW HOST HISTORY: rt and lt knee pain COMPARISON: No comparisons available. Findings: No acute fracture or malalignment. No significant degenerative changes. Soft tissues unremarkable. Impression: No acute fracture or malalignment. Reviewed, dictated and finalized at location P. SHOW HOST Impression: No acute fracture or malalignment.
--- NOTE | ~2025-07-05 | US_ITS ---
ULTRASOUND ABDOMEN LIMITED (RIGHT UPPER QUADRANT) Clinical History: Abd pain Comparison: CT abdomen pelvis 04/27/2025 Technique: Right upper quadrant sonography Findings: Liver: Enlarged. Echogenic. No intrahepatic biliary ductal dilatation. Normal hepatopedal flow main portal vein. Common Duct: Normal caliber. 5 mm. Gallbladder: No stones. No wall thickening. No pericholecystic fluid. Pancreas: Visualized portions unremarkable. IMPRESSION: 1. No acute findings. 2. Hepatomegaly, with steatosis and/or hepatocellular disease. Reviewed, dictated and finalized at location R. TY COORDINATOR
== END 2025-07-05 07:58 | disposition home or self-care (01) ==
PROVIDERS: PCP Emergency Medicine; Visit Provider Emergency Medicine
DX: M25.561 Pain in right knee (principal); M25.562 Pain in left knee; R10.9 Unspecified abdominal pain; Z87.891 Personal history of nicotine dependence
CPT/HCPCS: 71046; 73564; 76705